=== PATIENT | female | born 2000 | race Caucasian/White ===

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

== ENCOUNTER → 2019-02-09 10:15 | Outpatient (CLI) | payer OTHER, SELFPAY ==
[2016-04-25 18:06] VITALS: BMI 19.9
[2019-02-09 11:13] LABS: AST(SGOT) 18 U/L (15-37); Alanine Aminotransfer ALT/SGPT 17 U/L (13-56); Albumin, Serum 3.8 g/dL (3.2-5.0); Alkaline Phosphatase 40 U/L (45-117); Bilirubin, Direct 0.17 mg/dL (0.00-0.30); Protein, Total 6.8 g/dL (6.4-8.2)
== END ==
PROVIDERS: Family Provider Family Medicine; PCP Family Medicine; Referring Provider Internal Medicine Nephrology; Visit Provider Internal Medicine Nephrology
DX: Q61.2 Polycystic kidney, adult type (principal)
CPT/HCPCS: 36415; 80076

== ENCOUNTER → 2019-09-30 15:30 | Outpatient (CLI) | payer OTHER, SELFPAY ==
[2016-04-25 18:06] VITALS: BMI 19.9
[2019-09-30 18:29] LABS: AST(SGOT) 20 U/L (15-37); Alanine Aminotransfer ALT/SGPT 19 U/L (13-56); Albumin, Serum 4.2 g/dL (3.2-5.0); Alkaline Phosphatase 44 U/L (45-117); Bilirubin, Direct 0.19 mg/dL (0.00-0.30); Globulin 3.1 g/dL (2.2-4.2); Protein, Total 7.3 g/dL (6.4-8.2)
== END ==
PROVIDERS: PCP Family Medicine; Referring Provider Internal Medicine Nephrology; Visit Provider Internal Medicine Nephrology
DX: Q61.2 Polycystic kidney, adult type (principal)
CPT/HCPCS: 36415; 80076

== ENCOUNTER 2019-11-07 16:43 | Outpatient (RCR) | payer OTHER, SELFPAY ==
[2016-04-25 18:06] VITALS: BMI 19.9
[2019-11-07 17:31] LABS: AST(SGOT) 23 U/L (15-37); Alanine Aminotransfer ALT/SGPT 17 U/L (13-56); Albumin, Serum 4.1 g/dL (3.2-5.0); Alkaline Phosphatase 40 U/L (45-117); Bilirubin, Direct 0.21 mg/dL (0.00-0.30); Globulin 3.1 g/dL (2.2-4.2); Protein, Total 7.2 g/dL (6.4-8.2)
== END 2019-11-07 18:00 | disposition home or self-care (01) ==
LOC: LAB 16:43
PROVIDERS: PCP Family Medicine; Visit Provider Internal Medicine Nephrology
DX: Q61.2 Polycystic kidney, adult type (principal)
CPT/HCPCS: 36415; 80076

== ENCOUNTER 2019-12-05 16:46 | Outpatient (RCR) | payer OTHER, SELFPAY ==
[2016-04-25 18:06] VITALS: BMI 19.9
[2019-12-05 18:39] LABS: AST(SGOT) 19 U/L (15-37); Alanine Aminotransfer ALT/SGPT 21 U/L (13-56); Albumin, Serum 3.9 g/dL (3.2-5.0); Alkaline Phosphatase 41 U/L (45-117); Bilirubin, Direct 0.17 mg/dL (0.00-0.30); Protein, Total 6.9 g/dL (6.4-8.2)
== END 2019-12-05 18:00 | disposition home or self-care (01) ==
LOC: LAB 16:46
PROVIDERS: PCP Family Medicine; Visit Provider Internal Medicine Nephrology
DX: Q61.2 Polycystic kidney, adult type (principal)
CPT/HCPCS: 36415; 80076

== ENCOUNTER 2020-01-08 16:51 | Outpatient (RCR) | payer OTHER, SELFPAY ==
[2016-04-25 18:06] VITALS: BMI 19.9
[2020-01-08 17:55] LABS: AST(SGOT) 19 U/L (15-37); Alanine Aminotransfer ALT/SGPT 17 U/L (13-56); Albumin, Serum 4.1 g/dL (3.2-5.0); Alkaline Phosphatase 38 U/L (45-117); Bilirubin, Direct 0.16 mg/dL (0.00-0.30); Protein, Total 7.1 g/dL (6.4-8.2)
== END 2020-01-08 18:00 | disposition home or self-care (01) ==
LOC: LAB 16:51
PROVIDERS: PCP Family Medicine; Referring Provider Internal Medicine Nephrology; Visit Provider Internal Medicine Nephrology
DX: Q61.2 Polycystic kidney, adult type (principal)
CPT/HCPCS: 36415; 80076

== ENCOUNTER 2020-03-07 11:39 | Outpatient (RCR) | payer OTHER, SELFPAY ==
[2016-04-25 18:06] VITALS: BMI 19.9
[2020-03-07 12:15] LABS: AST(SGOT) 15 U/L (15-37); Alanine Aminotransfer ALT/SGPT 17 U/L (13-56); Albumin, Serum 3.8 g/dL (3.2-5.0); Alkaline Phosphatase 44 U/L (45-117); Bilirubin, Direct 0.24 mg/dL (0.00-0.30); Globulin 3.2 g/dL (2.2-4.2)
== END 2020-03-07 18:00 | disposition home or self-care (01) ==
LOC: LAB 11:39
PROVIDERS: PCP Family Medicine; Referring Provider Internal Medicine Nephrology; Visit Provider Internal Medicine Nephrology
DX: Q61.2 Polycystic kidney, adult type (principal)
CPT/HCPCS: 36415; 80076

== ENCOUNTER 2020-06-08 13:27 | Outpatient (RCR) | payer OTHER, SELFPAY ==
[2016-04-25 18:06] VITALS: BMI 19.9
[2020-05-19 17:23] LABS: AST(SGOT) 19 U/L (15-37); Alanine Aminotransfer ALT/SGPT 18 U/L (13-56); Albumin, Serum 4.2 g/dL (3.2-5.0); Alkaline Phosphatase 46 U/L (45-117); Bilirubin, Direct 0.24 mg/dL (0.00-0.30); Protein, Total 7.2 g/dL (6.4-8.2)
[2020-06-08 14:23] LABS: AST(SGOT) 19 U/L (15-37); Alanine Aminotransfer ALT/SGPT 24 U/L (13-56); Albumin, Serum 3.9 g/dL (3.2-5.0); Alkaline Phosphatase 42 U/L (45-117); Bilirubin, Direct 0.19 mg/dL (0.00-0.30); Globulin 3.2 g/dL (2.2-4.2); Protein, Total 7.1 g/dL (6.4-8.2)
== END 2020-06-08 18:00 | disposition home or self-care (01) ==
LOC: LAB 13:27
PROVIDERS: PCP Family Medicine; Referring Provider Internal Medicine Nephrology; Visit Provider Internal Medicine Nephrology
DX: Q61.2 Polycystic kidney, adult type (principal)
CPT/HCPCS: 36415; 80076

== ENCOUNTER 2020-06-28 21:23 | Emergency (ER) | payer OTHER, SELFPAY ==
[2020-06-28 21:24] VITALS: BP 115/78; PULSE 86; RESP 16; TEMP 37.3; O2SAT 98; BMI 20.2
--- NOTE | 2020-06-28 21:50 | ED.VISSUMM ---
- ER Visit Summary Date of Service: 06/28/20 Chief Complaint: Palpitations History of Present Illness: The patient is a 19 F with no primary care physician. She only has a medical history of polycystic kidney disease. She reports at 9:00 this evening while driving she had the abrupt onset of palpitations. States it felt as though her heart was racing. She became very lightheaded, short of breath, and sweaty. It lasted approximately 10 minutes and is now resolved. She denies any chest pain during this. She states that both hands began to tingle. All of her symptoms have resolved. Patient reports that she just feels tired. She has never had anything like this before. She denies caffeine or decongestant intake. She denies any drug use. She does not smoke. States that nothing was different than usual tonight. No new medications. Physical Examination: Vitals: Stable. Afebrile. General: Well-nourished and well-developed. Head: Normocephalic atraumatic. Neck: Supple, no lymphadenopathy. No JVD. Nontender. Cardiovascular: Regular rate and rhythm. No murmurs. Respiratory: No respiratory distress. Clear to auscultation bilaterally. Abdominal: Soft, nontender, nondistended, normal bowel sounds. No guarding, rebound, or peritoneal signs. Back: Nontender. Extremities: Nontender, no edema. Skin: Normal color, no rash. Neurologic: Alert and oriented ?3. Cranial nerves II through XII are intact. Normal strength and sensation. Psych: Normal affect. Test Results: EKG shows sinus arrhythmia at a rate of 80. There are normal intervals. No evidence of Brugada syndrome. Emergency Department Course and Treatment: Had a prolonged discussion the patient that I suspect that she had an episode of SVT. However, this resolved prior to arrival and we were unable to capture it. She does not want blood work obtained. I feel that is a reasonable course of action. Treatment Plan: Patient will be discharged instructions follow-up Dr. Rowdy Iqbal in 1 to 2 weeks for another exam. I did discuss with her that if she has another episode she should try to return the emerge department so that we can capture this. If she is having any other problems she should return the emergency department as well. Disposition: To home in improved and stable condition. Impression: 1. Palpitations. This note was generated with Dragon dictation software. It may contain incorrect words, spelling, and punctuation that were not noted in review of the chart prior to signing ED Disposition - Plan for ED Patient: Instructions: ED Palpitations Referrals: Rowdy Iqbal MD [STAFF PHYSICIAN] - 1-2 Weeks
--- NOTE | 2020-06-28 21:53 | EKG12_ITS ---
Test Reason : PALPS Blood Pressure : / mmHG Vent. Rate : 080 BPM Atrial Rate : 080 BPM P-R Int : 128 ms QRS Dur : 088 ms QT Int : 390 ms P-R-T Axes : 063 080 056 degrees QTc Int : 449 ms Normal sinus rhythm with sinus arrhythmia Normal ECG Confirmed by WILD DIETRICH, RIO ([id number]), newspaper copy editor TONIE HARMON ([id number]) on 06/29/2020 10:36:03 AM Referred By: SUKI Confirmed By:RIO ROME MD
== END 2020-06-28 22:03 | disposition home or self-care (01) ==
LOC: ED 21:59
PROVIDERS: Emergency Provider Emergency Medicine
DX: R00.2 Palpitations (principal); Q61.3 Polycystic kidney, unspecified; Z79.899 Other long term (current) drug therapy
CPT/HCPCS: 93005; 99282

== ENCOUNTER 2020-09-21 15:30 | Outpatient (RCR) | payer OTHER, SELFPAY ==
[2016-04-25 18:06] VITALS: BMI 19.9
[2020-09-21 17:45] LABS: AST(SGOT) 16 U/L (15-37); Alanine Aminotransfer ALT/SGPT 17 U/L (13-56); Alkaline Phosphatase 45 U/L (45-117); Bilirubin, Direct 0.16 mg/dL (0.00-0.30); Globulin 3.1 g/dL (2.2-4.2); Protein, Total 7.1 g/dL (6.4-8.2)
== END 2020-09-21 18:00 | disposition home or self-care (01) ==
LOC: LAB 15:30
PROVIDERS: Referring Provider Internal Medicine Nephrology; Visit Provider Internal Medicine Nephrology
DX: Q61.2 Polycystic kidney, adult type (principal)
CPT/HCPCS: 36415; 80076

== ENCOUNTER 2020-10-19 16:55 | Outpatient (RCR) | payer OTHER, SELFPAY ==
[2020-10-19 18:15] LABS: AST(SGOT) 15 U/L (15-37); Alanine Aminotransfer ALT/SGPT 15 U/L (13-56); Alkaline Phosphatase 41 U/L (45-117); Bilirubin, Direct 0.21 mg/dL (0.00-0.30); Globulin 3.1 g/dL (2.2-4.2); Protein, Total 7.1 g/dL (6.4-8.2)
== END 2020-10-19 18:00 | disposition home or self-care (01) ==
LOC: LAB 16:55
PROVIDERS: Referring Provider Internal Medicine Nephrology; Visit Provider Internal Medicine Nephrology
DX: Q61.2 Polycystic kidney, adult type (principal)
CPT/HCPCS: 36415; 80076

== ENCOUNTER 2020-12-18 16:24 | Outpatient (RCR) | payer OTHER, SELFPAY ==
[2020-12-18 17:57] LABS: AST(SGOT) 17 U/L (15-37); Alanine Aminotransfer ALT/SGPT 16 U/L (13-56); Alkaline Phosphatase 43 U/L (45-117); Bilirubin, Direct 0.23 mg/dL (0.00-0.30)
== END 2020-12-18 18:00 | disposition home or self-care (01) ==
LOC: LAB 16:24
PROVIDERS: Referring Provider Internal Medicine Nephrology; Visit Provider Internal Medicine Nephrology
DX: Q61.2 Polycystic kidney, adult type (principal)
CPT/HCPCS: 36415; 80076

== ENCOUNTER → 2021-05-01 09:04 | Outpatient (CLI) | payer OTHER, SELFPAY ==
--- NOTE | 2021-05-01 09:07 | US_ITS ---
STUDY: RENAL ULTRASOUND - COMPLETE REASON FOR EXAM: Female, 20 years old. POLYCYSTIC KIDNEY TECHNIQUE: Ultrasound evaluation of the kidneys was performed with real-time and static payne-scale imaging. COMPARISON: None. FINDINGS: Aorta: Visualized portions of abdominal aorta are normal in diameter. IVC: Visualized portions appear patent. Right kidney: Measures 16.6 cm. Irregular contour, enlarged and predominantly replaced by cysts. Left kidney: Measures 14.3 cm. Irregular contour, enlarged and predominantly replaced by cysts however cystic replacement is slightly lesser than in the right kidney. Bladder: No intrinsic masses, stones, or abnormal dilatation noted. Incidental note is made of an intrauterine and a 2.8 cm right ovarian cyst. US/Kidney and Bladder IMPRESSION: Bilateral polycystic kidney disease as above. Electronically Signed: Joel Lima MD at 13:39 EST Tel , Service support ,
== END ==
DX: Q61.2 Polycystic kidney, adult type (principal)
CPT/HCPCS: 76770

== ENCOUNTER → 2021-05-10 10:07 | Outpatient (CLI) | payer OTHER, SELFPAY ==
[2021-05-10 12:07] LABS: Absolute Lymphocyte Count 1.09 X10^3/uL (0.83-4.51); Absolute Neutrophil Count 4.6 X10^3/uL (2.0-7.7); Basophil# 0.03 X10^3/uL; Basophil% 0.5 % (0-1); Eosinophil# 0.03 X10^3/uL; Eosinophils% 0.5 % (0-5); Hematocrit 37.6 % (37-47); Lymphocyte # 1.09 X10^3/ul (0.83-4.51); Lymphocyte % 17.6 % (19-41); Mean Corp Hgb Conc 34.6 g/dL (32-36); Mean Corpuscular Hgb 31.9 pg (27.0-32.0); Mean Corpuscular Volume 92.4 fL (81-99); Mean Platelet Vol. 10.3 fl (6.2-12.0); Monocyte# 0.44 X10^3/uL; Monocyte% 7.1 % (0-10); NRBC Flagged by Analyzer 0 % (0-5); Neutrophil # 4.58 X10^3/uL (2.7-7.7); Neutrophil % 74.1 % (47-70); Platelet Count 180 K/mm3 (150-450); RBC Distribution Width CV 11.6 % (11.6-14.6); RBC Distribution Width SD 39.4 fl (35.1-43.9); Red Blood Count 4.07 M/mm3 (4.2-5.4); White Blood Count 6.2 K/mm3 (4.4-11.0)
[2021-05-10 12:32] LABS: AST(SGOT) 16 U/L (15-37); Alanine Aminotransfer ALT/SGPT 20 U/L (13-56); Albumin, Serum 3.5 g/dL (3.2-5.0); Alkaline Phosphatase 31 U/L (45-117); Anion Gap 5 (5-15); BUN 8 mg/dL (7-18); BUN/Creat Ratio 16.9 RATIO (10-20); Calcium,Total 8.8 mg/dL (8.5-10.1); Chloride 106 mmol/L (98-107); Creatinine, Serum 0.47 mg/dL (0.55-1.02); EST Glomerular Filtration Rate 175 mL/min (>60); Est Glom Filt Rate - Afr Amer 212 mL/min (>60); Globulin 3.6 g/dL (2.2-4.2); Glucose 76 mg/dL (74-106); Potassium 3.4 mmol/L (3.5-5.1); Protein, Total 7.1 g/dL (6.4-8.2); Sodium Level 136 mmol/L (136-145)
[2021-05-10 13:12] LABS: HIV - WCH Non-Reactive (Nonreactive); Hepatitis B Surface Antigen Non-Reactive (Nonreactive); Hepatitis C Antibody Non-Reactive (Nonreactive); Syphilis Antibodies Non-reactive
[2021-05-10 13:55] LABS: Protein, Urine (Random) 6.6 mg/dL (<11.9); Protein:Creat Ratio 142 mg/g CRE (0-200)
[2021-05-10 14:01] LABS: Amphetamine Urine VISTA NEGATIVE (<1000 ng/mL); Barbiturate Urine VISTA NEGATIVE (< 200 ng/mL); Benzodiazepine Urine VISTA NEGATIVE (< 200 ng/mL); Cocaine Urine VISTA NEGATIVE (< 300 ng/mL); Ecstacy Urine VISTA NEGATIVE (< 500 ng/mL); Methadone Urine VISTA NEGATIVE (< 300 ng/mL); PCP Urine VISTA NEGATIVE (< 25 ng/mL); THC Urine VISTA NEGATIVE (< 50 ng/mL); Vista UDS pH Range 6
[2021-05-12 22:06] LABS: Chlamydia By Nucleic Acid AMP Negative (Negative)
[2021-05-12 22:49] LABS: Gonococcus By Nucleic Acid AMP Negative (Negative)
[2021-05-17 14:20] LABS: HPV Reflexed? NOT INDICATED
== END ==
PROVIDERS: Referring Provider Obstetrics & Gynecology; Visit Provider Obstetrics & Gynecology
DX: Z34.90 Encounter for supervision of normal pregnancy, unspecified, unspecified trimester (principal)
CPT/HCPCS: 36415; 80053; 80307; 82570; 84156; 85025; 86703; 86762; 86780; 86803; 86850; 86900; 86901; 87086; 87088; 87340; 87491; 87591; 88175; G0145

== ENCOUNTER 2021-09-01 09:42 | Outpatient (CLI) | payer OTHER, SELFPAY ==
[2021-09-01 10:21] LABS: Absolute Lymphocyte Count 1.18 X10^3/uL (0.83-4.51); Basophil# 0.01 X10^3/uL; Basophil% 0.1 % (0-1); Eosinophil# 0.07 X10^3/uL; Eosinophils% 0.9 % (0-5); Hematocrit 36.8 % (37-47); Hemoglobin 12.8 g/dL (12.0-15.0); Lymphocyte # 1.18 X10^3/ul (0.83-4.51); Lymphocyte % 14.9 % (19-41); Mean Corp Hgb Conc 34.8 g/dL (32-36); Mean Corpuscular Hgb 32.7 pg (27.0-32.0); Mean Corpuscular Volume 94.1 fL (81-99); Mean Platelet Vol. 10.2 fl (6.2-12.0); Monocyte# 0.61 X10^3/uL; Monocyte% 7.7 % (0-10); NRBC Flagged by Analyzer 0 % (0-5); Neutrophil # 6.04 X10^3/uL (2.7-7.7); Platelet Count 165 K/mm3 (150-450); RBC Distribution Width CV 12.2 % (11.6-14.6); RBC Distribution Width SD 41.9 fl (35.1-43.9); Red Blood Count 3.91 M/mm3 (4.2-5.4); White Blood Count 7.9 K/mm3 (4.4-11.0)
[2021-09-01 10:45] LABS: Albumin, Serum 2.9 g/dL (3.2-5.0); BUN 8 mg/dL (7-18); BUN/Creat Ratio 13.7 RATIO (10-20); Calcium,Total 8.3 mg/dL (8.5-10.1); Chloride 107 mmol/L (98-107); Creatinine, Serum 0.58 mg/dL (0.55-1.02); EST Glomerular Filtration Rate 137 mL/min (>60); Est Glom Filt Rate - Afr Amer 166 mL/min (>60); Glucose 100 mg/dL (74-106); Glucose Challenge Gest 1H 50g 100 mg/dL (70-140); Phosphorus 3.2 mg/dL (2.5-4.9); Potassium 3.5 mmol/L (3.5-5.1); Sodium Level 138 mmol/L (136-145)
[2021-09-01 10:54] LABS: Protein, Urine (Random) 10.4 mg/dL (<11.9); Protein:Creat Ratio 177 mg/g CRE (0-200)
== END 2021-09-01 23:59 | disposition home or self-care (01) ==
LOC: LAB 09:45
PROVIDERS: Obstetrics & Gynecology; Visit Provider Internal Medicine Nephrology
DX: Q61.2 Polycystic kidney, adult type (principal)
CPT/HCPCS: 36415; 80069; 82570; 82950; 84156; 85025

== ENCOUNTER 2021-10-01 14:33 | Outpatient (CLI) | payer OTHER, SELFPAY ==
--- NOTE | 2021-10-01 14:35 | US_ITS ---
STUDY: RENAL ULTRASOUND - COMPLETE REASON FOR EXAM: Female, 21 years old. polycystic kidney disease with TECHNIQUE: Ultrasound evaluation of the kidneys was performed with real-time and static payne-scale imaging. COMPARISON: None. FINDINGS: RIGHT KIDNEY: with moderate renal hypertrophy. The right kidney measures 15.5 cm. The renal cortex measures in cm: 2.6. There is a normal cortex of the right kidney. There is multiple right renal cyst. Largest measures 47 x 42 mm. There are no right renal calculi. There is no right hydronephrosis. DISTAL RIGHT URETER: There is non-visualization of the distal right ureter. There is no demonstrated right ureterovesical junction calculus. There is no demonstrated right ureteral jet. LEFT KIDNEY: with moderate renal hypertrophy. The left kidney measures 15.4 cm. . There is a normal cortex of the left kidney. Multiple left renal cysts with the largest measures 26 x 26 mm. There are no left renal calculi. There is no left hydronephrosis. DISTAL LEFT URETER: There is non-visualization of the distal left ureter. There is no demonstrated left ureterovesical junction calculus. There is no demonstrated left ureteral jet. AORTA: There is obscuration of the abdominal aorta by overlying bowel gas I.V.C.: It is not visualized. There is too much overlying bowel gas. BLADDER: There is no demonstrated mass within the urinary bladder. There are no demonstrated bladder calculi. US/Kidney and Bladder IMPRESSION: Polycystic kidneys. Note: Renal size measurements and size measurements of other organs etc may vary depending on modality and beck operator dependent variations in measurements. (i.e. Measuring a kidney on an US does not correlate with an exact same measurement on a CT.) Electronically Signed: Aaron Dudley MD at 19:06 EDT ,
== END 2021-10-01 23:59 | disposition home or self-care (01) ==
LOC: US 14:34
PROVIDERS: Visit Provider Nurse Practitioner Women's Health
DX: O99.891 Other specified diseases and conditions complicating pregnancy (principal); Q61.3 Polycystic kidney, unspecified
CPT/HCPCS: 76770

== ENCOUNTER → 2021-10-28 | Outpatient (CLI) | payer OTHER, SELFPAY ==
--- NOTE | 2021-10-28 16:44 | US_ITS ---
STUDY: SECOND AND THIRD TRIMESTER OBSTETRICAL ULTRASOUND - LIMITED REASON FOR EXAM: Female, 21 years old. growth PRIOR ULTRASOUND: None. TECHNIQUE: Transabdominal TECHNICAL QUALITY: Adequate. FINDINGS: There is a single intrauterine fetus. The fetus is in a cephalic presentation. There is demonstrated cardiac activity with a heart rate of 171 bpm. There is a normal amniotic fluid volume. The largest amniotic fluid pocket measures 6.2 cm. The amniotic fluid index (KINDRA) is 21.19 cm. The placenta is posterior in location and is not low lying. There are Grade 2 placental changes. The cervix measures cm in length: 3.5. BIOMETRY: BPD: 85 mm: 34 weeks, 1 days HC: 327 mm: 37 weeks, 0 days AC: 332 mm: 37 weeks, 0 days FL: 66 mm: 33 weeks, 5 days CI: 76 FL/AC: 19 FL/BPD: 77 HC/AC: .98 age by current US: 35 weeks, 4 days. DORIS by current US: 6.12.22. Estimated weight: 2784 grams, +/- 418 grams, 57 %. Age by LMP: 35 weeks, 4 days. DORIS by LMP: 6.12.22. US/OB Limited With Biometrics IMPRESSION: There is a single live intrauterine with a heart rate of 171 bpm. age by current US: 35 weeks, 4 days. DORIS by current US: 6.12.22. Estimated weight: 2784 grams, +/- 418 grams, 57 %. Electronically Signed: Aaron Dudley MD at 18:11 EDT ,
[2021-10-28 17:00] LABS: Absolute Lymphocyte Count 1.39 X10^3/uL (0.83-4.51); Absolute Neutrophil Count 5.5 X10^3/uL (2.0-7.7); Basophil# 0.02 X10^3/uL; Basophil% 0.3 % (0-1); Eosinophil# 0.05 X10^3/uL; Eosinophils% 0.6 % (0-5); Hematocrit 38.7 % (37-47); Hemoglobin 13.2 g/dL (12.0-15.0); Lymphocyte # 1.39 X10^3/ul (0.83-4.51); Lymphocyte % 17.8 % (19-41); Mean Corp Hgb Conc 34.1 g/dL (32-36); Mean Corpuscular Hgb 32.5 pg (27.0-32.0); Mean Corpuscular Volume 95.3 fL (81-99); Mean Platelet Vol. 11.4 fl (6.2-12.0); Monocyte# 0.83 X10^3/uL; Monocyte% 10.6 % (0-10); NRBC Flagged by Analyzer 0 % (0-5); Neutrophil # 5.51 X10^3/uL (2.7-7.7); Neutrophil % 70.3 % (47-70); Platelet Count 149 K/mm3 (150-450); RBC Distribution Width SD 41.8 fl (35.1-43.9); Red Blood Count 4.06 M/mm3 (4.2-5.4); White Blood Count 7.8 K/mm3 (4.4-11.0)
[2021-10-28 17:10] LABS: Creatinine, Urine (random) < 13.00 mg/dL (NO RANGE EST.); Protein, Urine (Random) < 6.0 mg/dL (<11.9)
[2021-10-28 18:00] LABS: ALB/GLOB Ratio 0.8 RATIO (0.9-2.4); AST(SGOT) 42 U/L (15-37); Alanine Aminotransfer ALT/SGPT 60 U/L (13-56); Albumin, Serum 2.8 g/dL (3.2-5.0); Alkaline Phosphatase 117 U/L (45-117); Anion Gap 6 (5-15); BUN 9 mg/dL (7-18); BUN/Creat Ratio 14.4 RATIO (10-20); Calcium,Total 9.1 mg/dL (8.5-10.1); Chloride 107 mmol/L (98-107); Creatinine, Serum 0.63 mg/dL (0.55-1.02); EST Glomerular Filtration Rate 126 mL/min (>60); Est Glom Filt Rate - Afr Amer 153 mL/min (>60); Globulin 3.7 g/dL (2.2-4.2); Glucose 93 mg/dL (74-106); Potassium 3.6 mmol/L (3.5-5.1); Protein, Total 6.5 g/dL (6.4-8.2); Sodium Level 139 mmol/L (136-145)
== END | disposition home or self-care (01) ==
PROVIDERS: Visit Provider Obstetrics & Gynecology
DX: O16.3 Unspecified maternal hypertension, third trimester (principal); O99.891 Other specified diseases and conditions complicating pregnancy; Q61.3 Polycystic kidney, unspecified
CPT/HCPCS: 36415; 76816; 80053; 82570; 84156; 85025

== ENCOUNTER 2021-10-29 09:50 | Outpatient (CLI) | payer OTHER, SELFPAY ==
[2021-10-29] VITALS (12 sets, daily range): BP systolic 128–148; BP diastolic 75–92; PULSE 60–86; TEMP 36.7; BMI 24.2
[2021-10-29 11:10] LABS: Protein, Urine (Random) < 6.0 mg/dL (<11.9); Protein:Creat Ratio 199 mg/g CRE (0-200)
[2021-10-29] MEDS: Betamethasone/Betamethasone 30 MG/5 ML Vial 12 MG IM (11:17)
[2021-10-29 11:19] LABS: Hematocrit 37.5 % (37-47); Hemoglobin 12.9 g/dL (12.0-15.0); Mean Corp Hgb Conc 34.4 g/dL (32-36); Mean Corpuscular Hgb 32.7 pg (27.0-32.0); Mean Corpuscular Volume 95.2 fL (81-99); Mean Platelet Vol. 11.2 fl (6.2-12.0); Platelet Count 151 K/mm3 (150-450); RBC Distribution Width CV 11.9 % (11.6-14.6); RBC Distribution Width SD 41.2 fl (35.1-43.9); Red Blood Count 3.94 M/mm3 (4.2-5.4); White Blood Count 8.9 K/mm3 (4.4-11.0)
[2021-10-29] MEDS: 0.9% Saline Lock 10 ML Syringe IV (11:21)
[2021-10-29 11:29] LABS: Creatinine, Serum 0.58 mg/dL (0.55-1.02); EST Glomerular Filtration Rate 139 mL/min (>60); Estimated Creatinine Clearance 170.05 ml/min
[2021-10-29 11:30] LABS: AST(SGOT) 43 U/L (15-37); Alanine Aminotransfer ALT/SGPT 63 U/L (13-56); Est Glom Filt Rate - Afr Amer 168 mL/min (>60); Uric Acid 3.6 mg/dL (2.6-6.0)
--- NOTE | 2021-10-29 13:36 | OB.TRI.HP_ITS ---
HPI - General HPI Narrative RUTH HENNESSY, is a 21 y/o @35w5 days who presents to L&D for monitoring after PIH labs from late last night showed elevated LFT's, slightly low platelets (149), and absence of proteinuria. Yesterday in the office her blood pressures were 130's-140's/80's and she stated that she was not feeling well. She denied, and continues to deny RUQ pain, headache, visual changes, chest pain, nausea, or vomiting. She states that the baby is moving well and she denies decreased movement, contraction pain, vaginal bleeding, or loss of fluid. Maternal Data Information DORIS Calculator Estimated Delivery Date Method Current WG Current Estimate 11/28/21 LMP (Certain) 35w 5d PFSH PFSH Medical History Polycystic kidney disease Home Medications multivitamin no.47-iron fum 27 mg-folate no.1 1 mg-dha 300 mg capsule 1 cap PO 04/29/21 [History Last Taken 10/27/21 21:00] Allergy/AdvReac Type Severity Reaction Status Date / Time No Known Allergies Allergy Verified 10/29/21 10:12 Family History Other Heart disease Hypertension Polycystic kidney disease Surgical History H/O left wrist surgery Social History adopted: No household members: spouse 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 pets and animals: Yes Smoking Status: Never smoker second hand exposure: No alcohol intake: never substance use type: does not use seatbelt use: always do you feel safe at home: Yes additional social history: - Prem History 1 Elective abortions Hx Para Spontaneous abortions Hx # Term Pregnancies Ectopic pregnancies Hx # Pregnancies Multiple births # of living children Visit Details Expected Delivery Route/Plan Labor Preferences- CB/BF classes: encouraged labor support person: Prem labor intervention preferences: [] pain management options preferred: limited intervention cut cord/dad catch: maybe : yes PP control planned: discussed discussed possible routes of delivery and associated risks: [] special requests: [] Plans Covid status: pos in past counseled regarding risk of covid in vs vaccination and declined vaccination Flu vaccine: declined Tdap vaccine: [] Rhogam: NA LARC form signed: yes Problem list reviewed and updated with the most current plan of care details and appropriate orders placed. Relevant counseling for the gestational age provided. Continue routine care and follow up unless otherwise noted in visit notes/problem list details OB Flowsheet Initial Weight: 144 lb Date -?-?-?-?-?-?-?-?--?-?-?-?- EGA Weight BP Urine Prot -?-?-?-?-?-?-?-?-?-?-?-?- Glucose FHR FuHt Pres Dilation -?-?-?-?-?-?-?-?-?-?-?-?- Effaced St Visit Note 05/10/21 -?-?-?-?-?-?-?-?-?-?-?-?- 11w 1d 144 lb (+0 oz) 120/72 -?-?-?-?-?-?-?-?-?-?-?-?- 160 -?-?-?-?-?-?-?-?-?-?-?-?- SM- CRL cons wit h LMP SM- CRL 4cm cons with LMP 06/08/21 -?-?-?-?-?-?-?-?-?-?-?-?- 15w 2d 146 lb 8 oz (+2 lb 8 oz) 110/82 Negative -?-?-?-?-?-?-?-?-?-?-?-?- Negative 147 -?-?-?-?-?-?-?-?-?-?-?-?- JV- no lof, vagi nal bleeding, + fm (fluttering) 07/09/21 -?-?-?-?-?-?-?-?-?-?-?-?- 19w 5d 153 lb (+9 lb) 130/86 Negative -?-?-?-?-?-?-?-?-?-?-?-?- Negative 155 -?-?-?-?-?-?-?-?-?-?-?-?- JV- no lof, v ag inal bleeding or cramping. anatomy scan was incomplete and showed a marginal previa. will have rpt scn in 2 weeks and at 28 weeks 08/06/21 -?-?-?-?-?-?-?-?-?-?-?-?- 23w 5d 159 lb 6 oz (+15 lb 6 oz) 120/88 Negative -?-?-?-?-?-?-?-?-?-?-?-?- Negative 140 -?-?-?-?-?-?-?-?-?-?-?-?- SM- no vb crampi ng 09/01/21 -?-?-?-?-?-?-?-?-?-?-?-?- 27w 3d 163 lb 8 oz (+19 lb 8 oz) 118/70 Negative -?-?-?-?-?-?-?-?-?-?-?-?- Negative 151 27 -?-?-?-?-?-?-?-?-?-?-?-?- MH-NO VB, LOF. G ood FM. Renal US for pt ordered at 32 wk. 28 w labs with urine PC ratio today. Larc. Will do tdap next visit. 09/15/21 -?-?-?-?-?-?-?-?-?-?-?-?- 29w 3d 165 lb 4 oz (+21 lb 4 oz) 129/81 Negative -?-?-?-?-?-?-?-?-?-?-?-?- Negative 133 29 -?-?-?-?-?-?-?-?-?-?-?-?- JV_ nml GCT, nee ds 32 week scan pt states it is scheduled. 09/24/21 -?-?-?-?-?-?-?-?-?-?-?-?- 30w 5d 168 lb (+24 lb) 124/80 -?-?-?-?-?-?-?-?-?-?-?-?- 135 30 -?-?-?-?-?-?-?-?-?-?-?-?- SM- no vb lof go od fm no regular ctx 10/08/21 -?-?-?-?-?-?-?-?-?-?-?-?- 32w 5d 170 lb 4 oz (+26 lb 4 oz) 100/70 Negative -?-?-?--?-?-?-?-?-?-?-?-?- Negative 140 33 -?-?-?-?-?-?-?-?-?-?-?-?- JV- no lof, vagi nal bleeding, or dec fm. urology referral needed 10/22/21 -?-?-?-?-?-?-?-?--?-?-?-?- 34w 5d 174 lb (+30 lb) 120/82 Negative -?-?-?-?-?-?-?-?-?-?-?-?- Negative 145 34 -?-?-?-?-?-?-?-?-?-?-?-?- JV- no lof, vagi nal bleeding, or dec fm. pt c/o a flap of tissue in the vagina this was examined and noted to be a hymen remnant that was swollen, 10/28/21 -?-?-?-?-?-?-?-?-?-?-?-?- 35w 4d 176 lb 8 oz (+32 lb 8 oz) 138/84 Negative -?-?-?-?-?-?-?-?-?-?-?-?- Negative 134 35 -?-?-?-?-?-?-?-?-?-?-?-?- JV- no lof, vagi nal bleeding, or dec fm. pt states that she just does not feel good. She has some nausea but no headaches or visual changes. JV- no lof, vaginal bleeding , or dec fm. pt states that she just does not feel good. She has some nausea but no headaches or visual changes.. ordering outpatient H labs now. will call with results. 10/29/21 -?-?-?-?-?-?-?-?-?-?-?-?- 35w 5d 173 lb 8.061 oz (+29 lb 8.061 oz) 144/91 140/90 148/92 129/80 130/83 133/84 134/81 134/80 128/77 130/75 128/75 -?-?-?-?-?-?-?-?-?-?-?-?- -?-?-?-?-?-?-?-?-?-?-?-?- ROS Constitutional Constitutional: Reports systems reviewed and no addt'l complaints, except as documented Gastrointestinal Gastrointestinal: Denies bloating, constipation, cramping, diarrhea, nausea or vomiting Genitourinary Genitourinary: Reports other Details: Denies vaginal odor, vaginal bleeding, or vaginal discharge ; Denies difficulty urinating or flank pain Physical Exam HEENT normocephalic Resp normal respiratory effort and normal air movement no CVA tenderness Extremity normal to inspection General Extremity: edema bilateral (trace ) NST FHR Rate Baby A Baseline: 140 Variability:: Moderate Accelerations:: 15 x 15 Decelerations:: None NST Reactive:: Yes FHR Category:: Category I Assessment & Plan (1) Hemolysis, elevated liver enzymes, and low platelet (HELLP) syndrome during : COMMENT: hellp suspected but not confirmed. pt given steroids on 10/29/21. Platelets in normal range with repeat blood work and blood pressure normal. pt following up in triage on 10/30 for rpt labs and rpt 2nd dose of celestone. bedrest encouraged as much as possible. precautions discussed PLAN: after patient was given celestone and labs were repeated, the lfts are slightly higher, but the plts are normal. Her blood pressure last check was 128/75. She denies headaches or blurry vision, no ruq pain still and she states that she feels better than yesterday plan for very close follow up. She will return tomorrow at 11 am for rpt steroids and blood work and will return sooner if develops any symptoms. Charges/Coding Multi Select Codes Visit Charges Office Visit/Consults: 52030 OV L3 Est Urinary/Genital Urinary/Genital CPT Codes: 46717-50 non-stress test Interp
== END 2021-10-29 13:45 | disposition home or self-care (01) ==
LOC: WPOUT 10:01 → WP 10:02
PROVIDERS: Visit Provider Obstetrics & Gynecology
DX: O99.891 Other specified diseases and conditions complicating pregnancy (principal); R74.8 Abnormal levels of other serum enzymes; Z23 Encounter for immunization; Z3A.35 35 weeks gestation of pregnancy
CPT/HCPCS: 36415; 59025; 59050; 82565; 82570; 84156; 84450; 84460; 84550; 85027; 96372; 99218; A4216; G0378; J0702

== ENCOUNTER 2021-10-31 07:19 | Inpatient (IN) | payer OTHER, SELFPAY ==
[2021-10-30] VITALS (14 sets, daily range): BP systolic 118–132; BP diastolic 61–83; PULSE 56–83; TEMP 36.7–36.8; O2SAT 96–98; BMI 24.0
[2021-10-30 12:09] LABS: Hematocrit 38.2 % (37-47); Hemoglobin 13.1 g/dL (12.0-15.0); Mean Corp Hgb Conc 34.3 g/dL (32-36); Mean Corpuscular Hgb 32.7 pg (27.0-32.0); Mean Corpuscular Volume 95.3 fL (81-99); Mean Platelet Vol. 11.2 fl (6.2-12.0); Platelet Count 143 K/mm3 (150-450); RBC Distribution Width CV 11.9 % (11.6-14.6); RBC Distribution Width SD 40.7 fl (35.1-43.9); Red Blood Count 4.01 M/mm3 (4.2-5.4); White Blood Count 15.1 K/mm3 (4.4-11.0)
[2021-10-30 12:25] LABS: AST(SGOT) 51 U/L (15-37); Alanine Aminotransfer ALT/SGPT 76 U/L (13-56); EST Glomerular Filtration Rate 112 mL/min (>60); Est Glom Filt Rate - Afr Amer 135 mL/min (>60); Uric Acid 3.7 mg/dL (2.6-6.0)
[2021-10-30 12:27] LABS: Protein, Urine (Random) 58.8 mg/dL (<11.9); Protein:Creat Ratio 209 mg/g CRE (0-200)
[2021-10-30] MEDS: Betamethasone/Betamethasone 30 MG/5 ML Vial 12 MG IM (12:37)
[2021-10-30 13:51] LABS: Bacteria 0 SEEN /hpf (None Seen); Mucous, Urine 0 SEEN /hpf (<or=2+); Red Blood Cells-Urine 0 SEEN /hpf (0-5); Squamous Epithelial Cells - UA 0 SEEN /hpf (5-10); White Blood Cells 0 SEEN /hpf (0-5)
[2021-10-30 13:52] LABS: Color, Urine Yellow (Yellow); Glucose, Dipstick Normal (Normal); Ketone-Dipstick Negative (Negative); Leukocyte Esterase-Dipstick Negative /ul (Negative); Nitrite-Dipstick Negative (Negative); Occult Blood-Urine Negative /ul (Negative); Protein-Dipstick Negative (Negative); Specific Gravity, Urine 1.005 (1.002-1.030); Urine Bilirubin Dipstick Negative (Negative); Urine Clarity Clear (Clear); Urine Urobilinogen Normal (Normal)
[2021-10-30] MEDS: Lactated Ringers 1,000 ML 999 ML IV (14:14)
[2021-10-30 15:01] LABS: Group B Strep DNA By PCR Negative (Negative); Internal Control PASS; Probe Check PASS; Specimen Processing Control PASS
[2021-10-30 19:02] LABS: Hematocrit 37.3 % (37-47); Hemoglobin 12.7 g/dL (12.0-15.0); Mean Corpuscular Hgb 32.6 pg (27.0-32.0); Mean Corpuscular Volume 95.9 fL (81-99); Mean Platelet Vol. 11.6 fl (6.2-12.0); Platelet Count 152 K/mm3 (150-450); RBC Distribution Width SD 41.4 fl (35.1-43.9); Red Blood Count 3.89 M/mm3 (4.2-5.4); White Blood Count 12.5 K/mm3 (4.4-11.0)
--- NOTE | 2021-10-30 19:05 | OB.TRI.HP_ITS ---
HPI - General General Date of Admission: 10/31/21 HPI Narrative RUTH HENNESSY, is a 21 F who presents for follow-up evaluation secondary to generalized malaise edema and borderline blood pressure elevation and elevated liver enzymes and borderline low platelets. Initial blood pressure elevation yesterday upon evaluation resolved and was within normal limits and there was negative urine protein and initial liver enzymes were elevated but not doubled and platelets were low but above 100,000. First dose of Celestone was given yesterday and then repeat labs were done again today. Patient is actually feeling better today with symptoms resolved and denies any headache blurry visio n or epigastric pain. However her liver enzymes have increased and platelets are still mildly abnormal. Blood pressures are within normal limits. Maternal Data Information DORIS Calculator Estimated Delivery Date Method Current WG Current Estimate 11/28/21 LMP (Certain) 36w 0d PFSH [facility] Medical History (Updated 10/31/21 @ 13:[address] 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 pets and animals: Yes Smoking Status: Never smoker second hand exposure: No alcohol intake: never substance use type: does not use seatbelt use: always do you feel safe at home: Yes additional social history: - Prem History 1 Elective abortions Hx Para 0 Spontaneous abortions Hx # Term Pregnancies Ectopic pregnancies Hx # Pregnancies Multiple births # of living children Visit Details Expected Delivery Route/Plan Labor Preferences- CB/BF classes: encouraged labor support person: Prem labor intervention preferences: [] pain management options preferred: limited intervention cut cord/dad catch: maybe : yes PP control planned: discussed discussed possible routes of delivery and associated risks: [] special requests: [] Plans Covid status: pos in past counseled regarding risk of covid in vs vaccination and declined vaccination Flu vaccine: declined Tdap vaccine: [] Rhogam: NA LARC form signed: yes Problem list reviewed and updated with the most current plan of care details and appropriate orders placed. Relevant counseling for the gestational age provided. Continue routine care and follow up unless otherwise noted in visit notes/problem list details OB Flowsheet Initial Weight: 144 lb Date -?-?-?-?-?-?-?-?-?-?-?-?- EGA Weight BP Urine Prot -?-?-?-?-?-?-?-?-?-?-?-?- Glucose FHR FuHt Pres Dilation -?-?-?-?-?-?-?-?-?-?-?-?- Effaced St Visit Note 05/10/21 -?-?-?-?-?-?-?-?-?-?-?-?- 11w 1d 144 lb (+0 oz) 120/72 -?-?-?-?-?-?-?-?-?-?-?-?- 160 -?-?-?-?-?-?-?-?-?-?-?-?- SM- CRL cons wit h LMP SM- CRL 4cm cons with LMP 06/08/21 -?-?-?-?-?-?-?-?-?-?-?-?- 15w 2d 146 lb 8 oz (+2 lb 8 oz) 110/82 Negative -?-?-?-?-?-?-?-?-?-?-?-?- Negative 147 -?-?-?-?-?-?-?-?-?-?-?-?- JV- no lof, vagi nal bleeding, + fm (fluttering) 07/09/21 -?-?-?-?-?-?-?-?-?-?-?-?- 19w 5d 153 lb (+9 lb) 130/86 Negative -?-?-?-?-?-?-?-?-?-?-?-?- Negative 155 -?-?-?-?-?-?-?-?-?-?-?-?- JV- no lof, v ag inal bleeding or cramping. anatomy scan was incomplete and showed a marginal previa. will have rpt scn in 2 weeks and at 28 weeks 08/06/21 -?-?-?-?-?-?-?-?--?-?-?-?- 23w 5d 159 lb 6 oz (+15 lb 6 oz) 120/88 Negative -?-?-?-?-?-?-?-?-?-?-?-?- Negative 140 -?-?-?-?-?-?-?-?-?-?-?-?- SM- no vb crampi ng 09/01/21 -?-?-?-?-?-?-?-?-?-?-?-?- 27w 3d 163 lb 8 oz (+19 lb 8 oz) 118/70 Negative -?-?-?-?-?-?-?-?-?-?-?-?- Negative 151 27 -?-?-?-?-?-?-?-?-?-?-?-?- MH-NO VB, LOF. G ood FM. Renal US for pt ordered at 32 wk. 28 w labs with urine PC ratio today. Larc. Will do tdap next visit. 09/15/21 -?-?-?-?-?-?-?-?-?-?-?-?- 29w 3d 165 lb 4 oz (+21 lb 4 oz) 129/81 Negative -?-?-?-?-?-?-?-?-?-?-?-?- Negative 133 29 -?-?-?-?-?-?-?-?-?-?-?-?- JV_ nml GCT, nee ds 32 week scan pt states it is scheduled. 09/24/21 -?-?-?-?-?-?-?-?-?-?-?-?- 30w 5d 168 lb (+24 lb) 124/80 -?-?-?-?-?-?-?-?-?-?-?-?- 135 30 -?-?-?-?-?-?-?-?-?-?-?-?- SM- no vb lof go od fm no regular ctx 10/08/21 -?-?-?-?-?-?-?-?-?-?-?-?- 32w 5d 170 lb 4 oz (+26 lb 4 oz) 100/70 Negative -?-?-?-?-?-?-?-?-?-?-?-?- Negative 140 33 -?-?-?-?-?-?-?-?-?-?-?-?- JV- no lof, vagi nal bleeding, or dec fm. urology referral needed 10/22/21 -?-?-?-?-?-?-?-?-?-?-?-?- 34w 5d 174 lb (+30 lb) 120/82 Negative -?-?-?-?-?-?-?-?-?-?-?-?- Negative 145 34 -?-?-?-?-?-?-?-?-?-?-?-?- JV- no lof, vagi nal bleeding, or dec fm. pt c/o a flap of tissue in the vagina this was examined and noted to be a hymen remnant that was swollen, 10/28/21 -?-?-?-?-?-?-?-?-?-?-?-?- 35w 4d 176 lb 8 oz (+32 lb 8 oz) 138/84 Negative -?-?-?-?-?-?-?-?-?-?-?-?- Negative 134 35 -?-?-?-?-?-?-?-?-?-?-?-?- JV- no lof, vagi nal bleeding, or dec fm. pt states that she just does not feel good. She has some nausea but no headaches or visual changes. JV- no lof, vaginal bleeding , or dec fm. pt states that she just does not feel good. She has some nausea but no headaches or visual changes.. ordering outpatient PIH labs now. will call with results. 10/29/21 -?-?-?-?-?-?-?-?-?-?-?-?- 35w 5d 173 lb 8.061 oz (+29 lb 8.061 oz) 144/91 140/90 148/92 129/80 130/83 133/84 134/81 134/80 128/77 130/75 128/75 -?-?-?-?-?-?-?-?-?-?-?-?- -?-?-?-?-?-?-?-?-?-?-?-?- 10/31/21 -?-?-?-?-?-?-?-?-?-?-?-?- 36w 0d 126/82 125/67 107/54 140/76 132/80 140/90 -?-?-?-?-?-?-?-?-?-?-?-?- -?-?-?-?-?-?-?-?-?-?-?-?- Physical Exam Const alert, oriented x3 and no apparent distress HEENT Head and Scalp: normocephalic and atraumatic Eyes EOMs intact bilaterally Neck full ROM and no lymphadenopathy Chest inspection of chest normal Resp normal respiratory effort GI GI Narrative: gravid, abdomen nontender, AGA Neuro no focal motor deficits Motor Exam: clonus absent NST FHR Rate Baby A Baseline: 140 Variability:: Moderate Accelerations:: 15 x 15 Decelerations:: None NST Reactive:: Yes FHR Category:: Category I Uterine Activity:: no regular Assessment & Plan (1) Supervision of high risk , antepartum: COMMENT: PRR DORIS: 11/28/21 surprise Spouse: Prem (2) : QUALIFIERS: Weeks of gestation: 35 weeks Qualified Code(s): Z3A.35 - 35 weeks gestation of COMMENT: anatomy nl, declined genetics and carrier ntd screening. (3) Polycystic kidney disease: COMMENT: baseline ur/pr cr ratio, cmp. asa at 14 weeks. dx at 14 yrs old- genetic- Father has it as well, discussed FOB testing if desired. Needs renal scan at 32 weeks per urology. Ordered (4) Preeclampsia, severe: COMMENT: Status post Celestone 513 and 514. PLAN: Will STO and monitor, repeat labs tonight and tomorrow morning. Discussed induction of labor if labs are still within the abnormal range due to risk of impending help syndrome and will have reduced some risks of prematurity by having 48 hours of Celestone on board. Patient and her agrees to evaluation and induction if labs remain abnormal. Charges/Coding Procedures Urinary/Genital 52xxx-59xxx: 48935-74 non-stress test Interp Multi Select Codes Visit Charges Office Visit/Consults: 69998 OV L3 Est
[2021-10-30 19:28] LABS: AST(SGOT) 54 U/L (15-37); Alanine Aminotransfer ALT/SGPT 83 U/L (13-56); Creatinine, Serum 0.64 mg/dL (0.55-1.02); EST Glomerular Filtration Rate 123 mL/min (>60); Est Glom Filt Rate - Afr Amer 149 mL/min (>60); Estimated Creatinine Clearance 154.11 ml/min; Uric Acid 3.4 mg/dL (2.6-6.0)
[2021-10-30] MEDS: DiphenhydrAMINE 25 MG Capsule 50 MG PO (22:14)
[2021-10-31] VITALS (11 sets, daily range): BP systolic 107–140; BP diastolic 54–90; PULSE 55–81; TEMP 36.2–37.2; O2SAT 92–100
[2021-10-31 05:21] LABS: Hematocrit 35.6 % (37-47); Mean Corp Hgb Conc 33.7 g/dL (32-36); Mean Corpuscular Hgb 32.4 pg (27.0-32.0); Mean Corpuscular Volume 96.2 fL (81-99); Mean Platelet Vol. 11.5 fl (6.2-12.0); Platelet Count 135 K/mm3 (150-450); RBC Distribution Width CV 11.9 % (11.6-14.6); RBC Distribution Width SD 41.3 fl (35.1-43.9); White Blood Count 12.1 K/mm3 (4.4-11.0)
[2021-10-31 05:35] LABS: AST(SGOT) 47 U/L (15-37); Alanine Aminotransfer ALT/SGPT 81 U/L (13-56); Creatinine, Serum 0.39 mg/dL (0.55-1.02); EST Glomerular Filtration Rate 217 mL/min (>60); Est Glom Filt Rate - Afr Amer 262 mL/min (>60); Estimated Creatinine Clearance 252.89 ml/min; Uric Acid 3.1 mg/dL (2.6-6.0)
--- NOTE | 2021-10-31 08:00 | NURSING ---
Dr. Mancuso at bedside talking to patient about POC and induction. The plan is to have patient eat breakfast and get a shower before starting her induction. Ok to wait to take vitals and put patient on the monitor for NST once ready to start induction. Pt wants to wait to do admission questions until after her shower. Dr. Mancuso wants a CBC and CMP Q12 hours from the last set of labs that were drawn. Orders received for cytotec induction.
[2021-10-31] MEDS: 0.9% Saline Lock 10 ML Syringe IV (10:47)
[2021-10-31] MEDS: miSOPROStol 25 MCG TABLET VAGINAL (11:32)
--- NOTE | 2021-10-31 13:22 | HP.PCM.OB_ITS ---
HPI - General General Date of Admission: 10/31/21 HPI Narrative RUTH HENNESSY, is a 21 F who presents for elevated liver enzymes and low platelets. Blood pressures are within normal limits, had one elevated value 2 days ago upon initial evaluation but repeats are normal. Urine protein within normal limits but in the process of 24-hour urine protein. Platelets decreased this morning on follow-up urine protein but liver enzymes are stable. Discussed expectant management versus induction of labor, decision to proceed with induction of labor due to potential risk for developing complete help syndrome or more severe preeclampsia. Status post Celestone x48 hours to reduce the ri sks of prematurity. Maternal Data Information DORIS Calculator Estimated Delivery Date Method Current WG Current Estimate 11/28/21 LMP (Certain) 36w 0d PFSH [facility] Medical History (Updated 10/31/21 @ 13:[address] 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 pets and animals: Yes Smoking Status: Never smoker second hand exposure: No alcohol intake: never substance use type: does not use seatbelt use: always do you feel safe at home: Yes additional social history: - Prem History 1 Elective abortions Hx Para 0 Spontaneous abortions Hx # Term Pregnancies Ectopic pregnancies Hx # Pregnancies Multiple births # of living children Visit Details Expected Delivery Route/Plan Labor Preferences- CB/BF classes: encouraged labor support person: Prem labor intervention preferences: [] pain management options preferred: limited intervention cut cord/dad catch: maybe : yes PP control planned: discussed discussed possible routes of delivery and associated risks: [] special requests: [] Plans Covid status: pos in past counseled regarding risk of covid in vs vaccination and declined vaccination Flu vaccine: declined Tdap vaccine: [] Rhogam: NA LARC form signed: yes Problem list reviewed and updated with the most current plan of care details and appropriate orders placed. Relevant counseling for the gestational age provided. Continue routine care and follow up unless otherwise noted in visit notes/problem list details OB Flowsheet Initial Weight: 144 lb Date -?-?-?-?-?-?-?-?-?-?-?-?- EGA Weight BP Urine Prot -?-?-?-?-?-?-?-?-?-?-?-?- Glucose FHR FuHt Pres Dilation -?-?-?-?-?-?-?-?-?-?-?-?- Effaced St Visit Note 05/10/21 -?-?-?-?-?-?-?-?-?-?-?-?- 11w 1d 144 lb (+0 oz) 120/72 -?-?-?-?-?-?-?-?-?-?-?-?- 160 -?-?-?-?-?-?-?-?-?-?-?-?- SM- CRL cons wit h LMP SM- CRL 4cm cons with LMP 06/08/21 -?-?-?-?-?-?-?-?-?-?-?-?- 15w 2d 146 lb 8 oz (+2 lb 8 oz) 110/82 Negative -?-?-?-?-?-?-?-?-?-?-?-?- Negative 147 -?-?-?-?-?-?-?-?-?-?-?-?- JV- no lof, vagi nal bleeding, + fm (fluttering) 07/09/21 -?-?-?-?-?-?-?-?-?-?-?-?- 19w 5d 153 lb (+9 lb) 130/86 Negative -?-?-?-?-?-?-?-?-?-?--?-?- Negative 155 -?-?-?-?-?-?-?-?-?-?-?-?- JV- no lof, v ag inal bleeding or cramping. anatomy scan was incomplete and showed a marginal previa. will have rpt scn in 2 weeks and at 28 weeks 08/06/21 -?-?-?-?-?-?-?-?-?-?-?-?- 23w 5d 159 lb 6 oz (+15 lb 6 oz) 120/88 Negative -?-?-?-?-?-?-?-?-?-?-?-?- Negative 140 -?-?-?-?-?-?-?-?-?-?-?-?- SM- no vb crampi ng 09/01/21 -?-?-?-?-?-?-?-?-?-?-?-?- 27w 3d 163 lb 8 oz (+19 lb 8 oz) 118/70 Negative -?-?-?-?-?-?-?-?-?-?-?-?- Negative 151 27 -?-?-?-?-?-?-?-?-?-?-?-?- MH-NO VB, LOF. G ood FM. Renal US for pt ordered at 32 wk. 28 w labs with urine PC ratio today. Larc. Will do tdap next visit. 09/15/21 -?-?-?-?-?-?-?-?-?-?-?-?- 29w 3d 165 lb 4 oz (+21 lb 4 oz) 129/81 Negative -?-?-?-?-?-?-?-?-?-?-?-?- Negative 133 29 -?-?-?-?-?-?-?-?-?-?-?-?- JV_ nml GCT, nee ds 32 week scan pt states it is scheduled. 09/24/21 -?-?-?-?-?-?-?-?-?-?-?-?- 30w 5d 168 lb (+24 lb) 124/80 -?-?-?-?-?-?-?-?-?-?-?-?- 135 30 -?-?-?-?-?-?-?-?-?-?-?-?- SM- no vb lof go od fm no regular ctx 10/08/21 -?-?-?-?-?-?-?-?-?-?-?-?- 32w 5d 170 lb 4 oz (+26 lb 4 oz) 100/70 Negative -?-?-?-?-?-?-?-?-?-?-?-?- Negative 140 33 -?-?-?-?-?-?-?-?-?-?-?-?- JV- no lof, vagi nal bleeding, or dec fm. urology referral needed 10/22/21 -?-?-?-?-?-?-?-?-?-?-?-?- 34w 5d 174 lb (+30 lb) 120/82 Negative -?-?-?-?-?-?-?-?-?-?-?-?- Negative 145 34 -?-?-?-?-?-?-?-?-?-?-?-?- JV- no lof, vagi nal bleeding, or dec fm. pt c/o a flap of tissue in the vagina this was examined and noted to be a hymen remnant that was swollen, 10/28/21 -?-?-?-?-?-?-?--?-?-?-?-?- 35w 4d 176 lb 8 oz (+32 lb 8 oz) 138/84 Negative -?-?-?-?-?-?-?-?-?-?-?-?- Negative 134 35 -?-?-?-?-?-?-?-?-?-?-?-?- JV- no lof, vagi nal bleeding, or dec fm. pt states that she just does not feel good. She has some nausea but no headaches or visual changes. JV- no lof, vaginal bleeding , or dec fm. pt states that she just does not feel good. She has some nausea but no headaches or visual changes.. ordering outpatient [facility] labs now. will call with results. 10/29/21 -?-?-?-?-?-?-?-?-?--?-?-?- 35w 5d 173 lb 8.061 oz (+29 lb 8.061 oz) 144/91 140/90 148/92 129/80 130/83 133/84 134/81 134/80 128/77 130/75 128/75 -?-?-?-?-?-?-?-?--?-?-?-?- -?-?-?-?-?-?-?-?-?-?-?-?- 10/31/21 -?-?-?-?-?-?-?-?-?-?-?-?- 36w 0d 126/82 125/67 107/54 140/76 132/80 140/90 -?-?-?-?-?-?-?-?-?-?-?-?- -?-?-?-?-?-?-?-?-?-?-?-?- NST FHR Rate Baby A Baseline: 130 Variability:: Moderate Accelerations:: 15 x 15 Decelerations:: None NST Reactive:: Yes FHR Category:: Category I Uterine Activity:: irregular ROS Constitutional Constitutional: Reports systems reviewed and no addt'l complaints, except as documented Eyes Eyes: Denies change in vision ENT HEENT: Reports systems reviewed and no addt'l complaints, except as documented; Denies headache(s) Cardiovascular Cardiovascular: Reports systems reviewed and no addt'l complaints, except as documented; Denies chest pain or dyspnea Respiratory/Chest Respiratory/Chest: Reports systems reviewed and no addt'l complaints, except as documented Gastrointestinal Gastrointestinal: Reports systems reviewed and no addt'l complaints, except as documented; Denies abdominal pain Genitourinary Genitourinary: Reports systems reviewed and no addt'l complaints, except as documented, contractions Details: present (irregular) and movement Details: present; Denies dysuria or genital lesions Musculoskeletal Musculoskeletal: Reports systems reviewed and no addt'l complaints, except as documented Neurologic Neurologic: Reports systems reviewed and no addt'l complaints, except as documented Endocrine Endocrinology: Reports systems reviewed and no addt'l complaints, except as documented Vital Signs Vital Signs Vital Signs: 10/30/21 14:19 10/30/21 15:18 10/30/21 16:54 Temperature Temperature Source Pulse Rate 68 76 82 Blood Pressure 128/82 H 123/61 H 123/82 H BP Systolic 128 123 123 BP Diastolic 82 61 82 Pulse Ox 10/30/21 16:55 10/30/21 18:55 10/30/21 20:17 Temperature 98.2 F 98.2 F 98.1 F Temperature Source Temporal Temporal Temporal Pulse Rate 71 Blood Pressure 128/75 H BP Systolic 128 BP Diastolic 75 Pulse Ox 98 10/30/21 20:19 10/30/21 23:14 10/31/21 05:05 Temperature 97.2 F L Temperature Source Temporal Pulse Rate 62 64 55 L Blood Pressure 126/82 H 125/67 H 107/54 L BP Systolic 126 125 107 BP Diastolic 82 67 54 Pulse Ox 96 10/31/21 09:33 10/31/21 10:39 10/31/21 10:41 Temperature 98.5 F Temperature Source Temporal Pulse Rate 81 76 Blood Pressure 140/76 H 132/80 H BP Systolic 140 132 BP Diastolic 76 80 Pulse Ox 99 100 10/31/21 12:52 Temperature 98.0 F Temperature Source Temporal Pulse Rate 67 Blood Pressure 140/90 H BP Systolic 140 BP Diastolic 90 Pulse Ox 97 Weight Weight: 172 lb 2.896 oz Body Mass Index (BMI) 24.0 Physical Exam Const alert, oriented x3, no apparent distress and healthy appearing HEENT normocephalic and moist oral mucous membranes Head and Scalp: atraumatic Neck full ROM, no lymphadenopathy, supple and thyroid normal General: trachea midline Lymph Lymphatic: no lymphadenopathy noted Chest inspection of chest normal Resp normal respiratory effort Cardio regular rate GI normal to inspection, nondistended, normoactive bowel sounds, soft to palpation and non-tender Inspection: gravid external exam normal Manual OB Exam: estimated gestational size appropriate, presentation cephalic, dilated 0, effaced and station Extremity normal to inspection General Extremity: Negative for edema Skin no rashes or lesions noted Neuro no focal motor deficits and deep tendon reflexes 2+ bilaterally Motor Exam: strength 5/5 throughout and clonus absent Psych mental status grossly normal Labs Labs Labs: Blood Type AB POSITIVE Antibody Screen NEGATIVE Hct 35.6 % (37-47) L Hgb 12.0 g/dL (12.0-15.0) Obstetrics US Syphilis Total Ab Non-reactive Rubella IgG Antibody Pending Hep Bs Antigen Non-Reactive (Nonreactive) Chlamydia DNA (JESE) Negative (Negative) Neisseria gonorrhoeae DNA (JESE) Negative (Negative) HIV 1&2 Antibody Non-Reactive (Nonreactive) Glucose 1 Hr 50 gm 100 mg/dL (70-140) Group B Strep DNA Negative (Negative) Assessment & Plan (1) Preeclampsia, severe: COMMENT: Status post Celestone 513 and 514. Elevated liver enzymes and low platelets but not in the range to diagnose hellp syndrome, recommend proceeding with induction of labor due to risks and being after 34 weeks and status post Celestone. Patient and agree to induction. Proceed with Cytotec induction of labor. We will start magnesium sulfate if develops neurologic symptoms or severely elevated blood pressures. (2) : QUALIFIERS: Weeks of gestation: 35 weeks Qualified Code(s): Z3A.35 - 35 weeks gestation of COMMENT: anatomy nl, declined genetics and carrier ntd screening. (3) Supervision of high risk , antepartum: COMMENT: PRR DORIS: 11/28/21 surprise Spouse: Prem (4) Polycystic kidney disease: COMMENT: baseline ur/pr cr ratio, cmp. asa at 14 weeks. dx at 14 yrs old- genetic- Father has it as well, discussed FOB testing if desired. Needs renal scan at 32 weeks per urology. Ordered PLAN: See above assessment and plan for induction of labor info. Plan epidural if desired. Plan Cytotec and Pitocin, AROM when able. Magnesium sulfate if severely elevated blood pressures or neurologic symptoms. Labs every 12 hours or as needed if change in clinical status
[2021-10-31 14:11] LABS: Amphetamine Urine VISTA NEGATIVE (<1000 ng/mL); Barbiturate Urine VISTA NEGATIVE (< 200 ng/mL); Benzodiazepine Urine VISTA NEGATIVE (< 200 ng/mL); Cocaine Urine VISTA NEGATIVE (< 300 ng/mL); Ecstacy Urine VISTA NEGATIVE (< 500 ng/mL); Methadone Urine VISTA NEGATIVE (< 300 ng/mL); PCP Urine VISTA NEGATIVE (< 25 ng/mL); THC Urine VISTA NEGATIVE (< 50 ng/mL); Vista UDS pH Range 6
[2021-10-31 15:23] LABS: 24 Hour Urine Protein 333.4 mg/24HR (<150 MG/24HR); 24HR. Urine Creatinine 1.06 g/24 HR (0.70-1.90); Urine Protein (24 Hour) < 6.0 mg/dL (<11.9)
[2021-10-31 15:32] LABS: Creat.Clear Total Volume 5850 mL; Creatinine Clearance 196 ml/min (100-200); Creatinine Serum Creat 0.4 mg/dL (0.6-1.0); Creatinine Urine 18.8 mg/dL (NO RANGE EST.); EST Glomerular Filtration Rate 218 mL/min (>60); Est Glom Filt Rate - Afr Amer 264 mL/min (>60)
[2021-10-31] MEDS: miSOPROStol 25 MCG TABLET 50 MCG VAGINAL ×2 (16:20→22:10)
[2021-10-31 17:46] LABS: Absolute Lymphocyte Count 1.29 X10^3/uL (0.83-4.51); Absolute Neutrophil Count 9.2 X10^3/uL (2.0-7.7); Basophil# 0.02 X10^3/uL; Basophil% 0.2 % (0-1); Eosinophil# 0.01 X10^3/uL; Eosinophils% 0.1 % (0-5); Hematocrit 38.2 % (37-47); Lymphocyte # 1.29 X10^3/ul (0.83-4.51); Lymphocyte % 11.1 % (19-41); Mean Platelet Vol. 11.5 fl (6.2-12.0); Monocyte# 0.98 X10^3/uL; Monocyte% 8.4 % (0-10); NRBC Flagged by Analyzer 0 % (0-5); Neutrophil # 9.21 X10^3/uL (2.7-7.7); Neutrophil % 79.3 % (47-70); Platelet Count 141 K/mm3 (150-450); RBC Distribution Width SD 42.7 fl (35.1-43.9); Red Blood Count 3.94 M/mm3 (4.2-5.4); White Blood Count 11.6 K/mm3 (4.4-11.0)
[2021-10-31 18:26] LABS: Albumin, Serum 2.9 g/dL (3.2-5.0); BUN 9 mg/dL (7-18); BUN/Creat Ratio 14.4 RATIO (10-20); Creatinine, Serum 0.62 mg/dL (0.55-1.02); EST Glomerular Filtration Rate 127 mL/min (>60); Est Glom Filt Rate - Afr Amer 154 mL/min (>60); Estimated Creatinine Clearance 159.08 ml/min; Glucose 130 mg/dL (74-106); Protein, Total 6.7 g/dL (6.4-8.2)
[2021-10-31 18:27] LABS: ALB/GLOB Ratio 0.8 RATIO (0.9-2.4); AST(SGOT) 48 U/L (15-37); Alanine Aminotransfer ALT/SGPT 87 U/L (13-56); Alkaline Phosphatase 114 U/L (45-117); Anion Gap 7 (5-15); Calcium,Total 8.6 mg/dL (8.5-10.1); Chloride 110 mmol/L (98-107); Globulin 3.8 g/dL (2.2-4.2); Potassium 3.6 mmol/L (3.5-5.1); Sodium Level 140 mmol/L (136-145)
[2021-10-31] MEDS: DiphenhydrAMINE 25 MG Capsule 50 MG PO (22:14)
[2021-10-31] MEDS: oxyCODONE 5 MG Tablet PO (23:20)
[2021-11-01] VITALS (49 sets, daily range): BP systolic 105–168; BP diastolic 58–101; PULSE 51–83; TEMP 36.1–37.1; O2SAT 84–100
[2021-11-01] MEDS: oxyCODONE 5 MG Tablet PO (03:30)
[2021-11-01] MEDS: miSOPROStol 25 MCG TABLET 50 MCG VAGINAL (04:16)
[2021-11-01 05:42] LABS: Absolute Lymphocyte Count 1.63 X10^3/uL (0.83-4.51); Absolute Neutrophil Count 10.6 X10^3/uL (2.0-7.7); Basophil# 0.02 X10^3/uL; Basophil% 0.1 % (0-1); Differential Indicated SCAN CRITERIA MET; Eosinophil# 0.04 X10^3/uL; Eosinophils% 0.3 % (0-5); Hematocrit 37.5 % (37-47); Hemoglobin 12.8 g/dL (12.0-15.0); Lymphocyte # 1.63 X10^3/ul (0.83-4.51); Lymphocyte % 11.7 % (19-41); Mean Corp Hgb Conc 34.1 g/dL (32-36); Mean Corpuscular Volume 96.6 fL (81-99); Mean Platelet Vol. 11.2 fl (6.2-12.0); Monocyte# 1.57 X10^3/uL; Monocyte% 11.2 % (0-10); NRBC Flagged by Analyzer 0 % (0-5); Neutrophil # 10.62 X10^3/uL (2.7-7.7); POSITIVE DIFFERENTIAL YES; Platelet Count 137 K/mm3 (150-450); RBC Distribution Width SD 42.1 fl (35.1-43.9); Red Blood Count 3.88 M/mm3 (4.2-5.4)
[2021-11-01 05:58] LABS: ALB/GLOB Ratio 0.8 RATIO (0.9-2.4); AST(SGOT) 42 U/L (15-37); Alanine Aminotransfer ALT/SGPT 83 U/L (13-56); Albumin, Serum 2.7 g/dL (3.2-5.0); Alkaline Phosphatase 108 U/L (45-117); Anion Gap 6 (5-15); BUN 9 mg/dL (7-18); BUN/Creat Ratio 19.4 RATIO (10-20); Calcium,Total 8.2 mg/dL (8.5-10.1); Chloride 109 mmol/L (98-107); Creatinine, Serum 0.46 mg/dL (0.55-1.02); EST Glomerular Filtration Rate 179 mL/min (>60); Est Glom Filt Rate - Afr Amer 216 mL/min (>60); Estimated Creatinine Clearance 214.41 ml/min; Globulin 3.6 g/dL (2.2-4.2); Glucose 96 mg/dL (74-106); Potassium 3.6 mmol/L (3.5-5.1); Protein, Total 6.3 g/dL (6.4-8.2); Sodium Level 139 mmol/L (136-145)
[2021-11-01 07:04] LABS: Atypical Lymphocyte 1+ %
[2021-11-01 09:28] LABS: Rubella IgG Reactive (Nonreactive)
[2021-11-01] MEDS: 0.9% Normal Saline Single 100 ML IV.SOLN. INTRA-UTER (10:00)
[2021-11-01] MEDS: Lactated Ringers 1,000 ML 50 ML IV (12:45)
[2021-11-01] MEDS: Oxytocin 30 units/NS 500 ml 30 UNITS/500 ML IV.SOLN IV (12:46)
[2021-11-01] MEDS: Acetaminophen 500 MG Tablet PO (12:47)
[2021-11-01 13:30] LABS: Pathologist Review Reviewed
[2021-11-01] MEDS: Lactated Ringers 500 ML 999 ML IV (14:59)
[2021-11-01] MEDS: fentaNYL-bupivacaine (epidural) 100 ML BAG EPIDURAL ×2 (16:32→19:37)
[2021-11-01 18:17] LABS: Absolute Lymphocyte Count 1.15 X10^3/uL (0.83-4.51); Absolute Neutrophil Count 10.5 X10^3/uL (2.0-7.7); Basophil# 0.03 X10^3/uL; Basophil% 0.2 % (0-1); Eosinophil# 0.02 X10^3/uL; Eosinophils% 0.1 % (0-5); Hematocrit 39.1 % (37-47); Hemoglobin 13.5 g/dL (12.0-15.0); Lymphocyte # 1.15 X10^3/ul (0.83-4.51); Lymphocyte % 8.6 % (19-41); Mean Corp Hgb Conc 34.5 g/dL (32-36); Mean Corpuscular Hgb 32.9 pg (27.0-32.0); Mean Corpuscular Volume 95.4 fL (81-99); Mean Platelet Vol. 11.6 fl (6.2-12.0); Monocyte% 11.9 % (0-10); NRBC Flagged by Analyzer 0 % (0-5); Neutrophil # 10.54 X10^3/uL (2.7-7.7); Neutrophil % 78.4 % (47-70); POSITIVE DIFFERENTIAL YES; Platelet Count 135 K/mm3 (150-450); RBC Distribution Width CV 11.9 % (11.6-14.6); RBC Distribution Width SD 41.4 fl (35.1-43.9); White Blood Count 13.5 K/mm3 (4.4-11.0)
[2021-11-01 18:26] LABS: Differential Indicated SCAN CRITERIA MET
[2021-11-01 18:33] LABS: ALB/GLOB Ratio 0.8 RATIO (0.9-2.4); AST(SGOT) 47 U/L (15-37); Alanine Aminotransfer ALT/SGPT 81 U/L (13-56); Albumin, Serum 2.8 g/dL (3.2-5.0); Alkaline Phosphatase 119 U/L (45-117); Anion Gap 10 (5-15); BUN 9 mg/dL (7-18); Calcium,Total 8.7 mg/dL (8.5-10.1); Chloride 105 mmol/L (98-107); Creatinine, Serum 0.39 mg/dL (0.55-1.02); EST Glomerular Filtration Rate 217 mL/min (>60); Est Glom Filt Rate - Afr Amer 262 mL/min (>60); Estimated Creatinine Clearance 252.89 ml/min; Globulin 3.6 g/dL (2.2-4.2); Glucose 90 mg/dL (74-106); Potassium 3.2 mmol/L (3.5-5.1); Protein, Total 6.4 g/dL (6.4-8.2); Sodium Level 138 mmol/L (136-145)
[2021-11-01 19:08] LABS: Differential Comment SCANNED
[2021-11-01] MEDS: Lactated Ringers 1,000 ML 200 ML IV (19:34)
[2021-11-02] VITALS (23 sets, daily range): BP systolic 116–155; BP diastolic 69–94; PULSE 60–100; RESP 14–16; TEMP 36.2–37.4; O2SAT 97
[2021-11-02] MEDS: Lactated Ringers 1,000 ML 200 ML IV (00:08)
[2021-11-02] MEDS: Oxytocin 30 units/NS 500 ml 30 UNITS/500 ML IV.SOLN 334 UNITS IV (01:30)
--- NOTE | 2021-11-02 01:42 | OP.PCM_ITS ---
Assessment & Plan (1) Preeclampsia, severe: COMMENT: Status post Celestone 513 and 514. Elevated liver enzymes and low platelets but not in the range to diagnose hellp syndrome, recommend proceeding with induction of labor due to risks and being after 34 weeks and status post Celestone. Patient and agree to induction. Proceed with Cytotec induction of labor. We will start magnesium sulfate if develops neurologic symptoms or severely elevated blood pressures. (2) : QUALIFIERS: Weeks of gestation: 35 weeks Qualified Code(s): Z3A.35 - 35 weeks gestation of COMMENT: anatomy nl, declined genetics and carrier ntd screening. (3) Supervision of high risk , antepartum: COMMENT: PRR DORIS: 11/28/21 surprise Spouse: Prem (4) Polycystic kidney disease: COMMENT: baseline ur/pr cr ratio, cmp. asa at 14 weeks. dx at 14 yrs old- genetic- Father has it as well, discussed FOB testing if desired. Needs renal scan at 32 weeks per urology. Ordered (5) Vaginal delivery: COMMENT: IOL 36 preeclampsia severe boy James SM Maternal Data Information DORIS Calculator Estimated Delivery Date Method Current WG Current Estimate 11/28/21 LMP (Certain) 36w 2d Vaginal Delivery Operative Information Date of Procedure: 11/02/21 Pre-Operative Diagnosis: IOL preeclampsia with severe features Post-Operative Diagnosis: same Surgery / Procedure Performed: Spontaneous Vaginal Delivery Type of Anesthesia: Epidural Special Medications: none Estimated Blood Loss: 200 Fluids Replaced: crystalloid Findings Description of Procedure: Patient began pushing and delivered the head in the SEBASTIÁN presentation. The head was delivered atraumatically and a loose nuchal cord ?1 was identified and the infant delivered through without complication. The anterior and posterior shoulders delivered without complication followed by the rest of the and the infant was placed on the maternal abdomen. Delayed cord clamping was employed for approximately 60 seconds. Cord was clamped and cut and gentle traction was applied to the cord and the placenta delivered spontaneously immediately following it was noted to be intact with three-vessel cord. The perineum and vagina were inspected and noted to have a second-degree perineal laceration that was repaired in the usual fashion with 3-0 Vicryl repeat. EBL was 200. Patient and infant tolerated delivery well. Presentation: SEBASTIÁN Amniotic Membrane Rupture Type: Artificial Amniotic Fluid Description: Clear Placental Delivery Description: Spontaneous Placenta Disposition: [facility] Cord Vessel Description: 3 Vessels Cord Entanglement: Around neck x 1, loose Infant A Gender: Male Delayed Cord Clamping: Yes Post Vaginal Delivery Medications Given After Delivery: IV Pitocin Episiotomy Description: None Laceration: Perineal Extension/lac and 2nd degree Complication Complications: None Procedures Urinary/Genital [id number]: [id number] Vaginal Delivery [facility]
--- NOTE | 2021-11-02 01:48 | PCM.DC ---
Discharge Instructions Diet Discharge Diet: No restrictions Activity Discharge Activity: Return to Normal Activity, May Not Drive (while taking narcotic pain medications.) and May Shower May resume sexual activity in: 4-6 weeks Dressing / Incision Call your doctor if your incision/area has: Continuous Slow Oozing, Sudden Increased Bleeding, Increased Pain/ Swelling, Increased Redness and Foul Smelling Discharge Follow Up Care Please Follow Up With: Lindsay Mancuso MD When: Call [phone] to make an appointment with your doctor in 6 weeks. If you had elevated blood pressure or 4th degree laceration, you will need to be seen in 2 weeks. Test Results: Test results from this visit will be discussed in further detail at your follow-up appointment, if applicable. Discharge Plan Admission Admit Date/Time: 10/31/21 07:19 Attending Provider: Lindsay Mancuso Primary Care Provider: Care Physician,Estephania Primary Discharge Orders/Prescriptions Prescriptions: No Action PNV-DHA 27 mg iron-1 mg -300 mg capsule 1 cap PO DAILY RF: 0 Referrals / Follow Up: Care Physician,No Primary [Primary Care Provider] - Disposition Disposition (needs filled in before D/C Order can be placed): Home, Self Care
[2021-11-02 02:28] LABS: Absolute Lymphocyte Count 0.97 X10^3/uL (0.83-4.51); Absolute Neutrophil Count 13.2 X10^3/uL (2.0-7.7); Basophil# 0.03 X10^3/uL; Basophil% 0.2 % (0-1); Eosinophil# 0.02 X10^3/uL; Eosinophils% 0.1 % (0-5); Hematocrit 36.9 % (37-47); Hemoglobin 12.7 g/dL (12.0-15.0); Lymphocyte # 0.97 X10^3/ul (0.83-4.51); Mean Corp Hgb Conc 34.4 g/dL (32-36); Mean Corpuscular Hgb 32.6 pg (27.0-32.0); Mean Corpuscular Volume 94.9 fL (81-99); Mean Platelet Vol. 11.3 fl (6.2-12.0); Monocyte# 1.91 X10^3/uL; Monocyte% 11.7 % (0-10); NRBC Flagged by Analyzer 0 % (0-5); Neutrophil # 13.22 X10^3/uL (2.7-7.7); Neutrophil % 81.1 % (47-70); POSITIVE DIFFERENTIAL YES; Platelet Count 150 K/mm3 (150-450); RBC Distribution Width CV 11.9 % (11.6-14.6); Red Blood Count 3.89 M/mm3 (4.2-5.4); White Blood Count 16.3 K/mm3 (4.4-11.0)
[2021-11-02 02:43] LABS: ALB/GLOB Ratio 0.7 RATIO (0.9-2.4); AST(SGOT) 47 U/L (15-37); Alanine Aminotransfer ALT/SGPT 85 U/L (13-56); Albumin, Serum 2.4 g/dL (3.2-5.0); Alkaline Phosphatase 117 U/L (45-117); Anion Gap 8 (5-15); BUN 8 mg/dL (7-18); BUN/Creat Ratio 18.6 RATIO (10-20); Chloride 107 mmol/L (98-107); Creatinine, Serum 0.43 mg/dL (0.55-1.02); EST Glomerular Filtration Rate 194 mL/min (>60); Est Glom Filt Rate - Afr Amer 235 mL/min (>60); Estimated Creatinine Clearance 229.37 ml/min; Globulin 3.4 g/dL (2.2-4.2); Glucose 96 mg/dL (74-106); Potassium 3.5 mmol/L (3.5-5.1); Protein, Total 5.8 g/dL (6.4-8.2); Sodium Level 137 mmol/L (136-145)
[2021-11-02 02:45] LABS: Differential Indicated SCAN CRITERIA MET
--- NOTE | 2021-11-02 03:05 | NURSING ---
infant transferred to [facility] for respiratory distress. Hospital electric breast pump brought into room and set up for pt use. pt encouraged to pump q2-3 hours. pt verbalized understanding.
[2021-11-02] MEDS: 0.9% Saline Lock 10 ML Syringe IV ×3 (04:19→20:22)
[2021-11-02 12:42] LABS: Pathologist Review Reviewed
[2021-11-02 12:46] LABS: Pathologist Review Reviewed
[2021-11-02] MEDS: Naproxen 500 MG Tablet PO (13:14)
[2021-11-02] MEDS: Prenatal Vits Tablet 1 TABLET PO (13:14)
[2021-11-02] MEDS: Sodium Citrate/Citric Acid 30 ML UDC PO (14:10)
[2021-11-02 14:16] LABS: Hematocrit 39.4 % (37-47); Hemoglobin 13.4 g/dL (12.0-15.0); Mean Corpuscular Hgb 32.4 pg (27.0-32.0); Mean Corpuscular Volume 95.2 fL (81-99); Mean Platelet Vol. 11.4 fl (6.2-12.0); Platelet Count 168 K/mm3 (150-450); RBC Distribution Width CV 12.1 % (11.6-14.6); RBC Distribution Width SD 42.1 fl (35.1-43.9); Red Blood Count 4.14 M/mm3 (4.2-5.4); White Blood Count 13.6 K/mm3 (4.4-11.0)
[2021-11-02 14:30] LABS: ALB/GLOB Ratio 0.7 RATIO (0.9-2.4); AST(SGOT) 49 U/L (15-37); Alanine Aminotransfer ALT/SGPT 88 U/L (13-56); Albumin, Serum 2.6 g/dL (3.2-5.0); Alkaline Phosphatase 122 U/L (45-117); Anion Gap 5 (5-15); BUN 8 mg/dL (7-18); BUN/Creat Ratio 15.7 RATIO (10-20); Chloride 107 mmol/L (98-107); Creatinine, Serum 0.51 mg/dL (0.55-1.02); EST Glomerular Filtration Rate 160 mL/min (>60); Est Glom Filt Rate - Afr Amer 193 mL/min (>60); Estimated Creatinine Clearance 193.39 ml/min; Globulin 3.6 g/dL (2.2-4.2); Glucose 84 mg/dL (74-106); Potassium 3.9 mmol/L (3.5-5.1); Protein, Total 6.2 g/dL (6.4-8.2); Sodium Level 138 mmol/L (136-145)
--- NOTE | 2021-11-02 14:37 | CT_ITS ---
STUDY: CT ABDOMEN AND PELVIS WITH AND WITHOUT CONTRAST REASON FOR EXAM: Female, 21 years old. Epigastric pain and elevated liver labs. The patient is earlier this morning. RADIATION DOSAGE (If Supplied By Facility): CTDIvol = ( 8.98 ) mGy, DLP = ( 720.92 ) mGycm TECHNIQUE: Transaxial images were obtained from the dome of the diaphragm to the symphysis pubis without oral contrast. 100 ml isovue 300 was administered. Sagittal and coronal images were reconstructed. Individualized dose optimization techniques were used for this CT. COMPARISON: None. FINDINGS: The visualized lung bases are unremarkable. The visualized portions of the heart are within normal limits. Normal liver. Normal gallbladder and extrahepatic biliary system. Normal spleen. Normal pancreas. Normal bilateral adrenal glands. Both kidneys are diffusely enlarged with multiple cysts in keeping with the bilateral polycystic kidney disease. There is a small hiatal hernia. Normal small intestine. Normal colon. The appendix is visualized and appears normal. Normal abdominal aorta. Normal inferior vena cava. Normal retroperitoneum. Normal urinary bladder. Diffuse enlargement of the uterus with the hyperdense material within the endometrium most likely secondary to the recent delivery. There is a small umbilical hernia containing fat. Normal osseous structures. CT/CT Abd/Pelvis W/WO Contrast IMPRESSION: Findings and can with bilateral polycystic kidney disease. Diffuse enlargement of the uterus with hyperdense material within the endometrium in keeping with the recent state. Electronically Signed: Leonel Carrington MD at 15:18 EDT ,
[2021-11-02 15:57] LABS: Amylase 60 U/L (25-115); Lipase 229 U/L (73-393)
--- NOTE | 2021-11-02 18:43 | PCM.PN.BLA ---
Progress Note Patient reevaluated for epigastric pain. Upon further evaluation patient did admit to pruritus increasing over the last several weeks. Bile acids hepatitis panel and CT of the abdomen pelvis ordered. Repeat CBC and CMP stable except for elevated total bilirubin. Upon review normal gallbladder and liver upon imaging. Patient pain did improve with Bicitra. Continue expectant management. Discussed possible cholestasis diagnosis.
[2021-11-03 03:52] VITALS: BP 114/73; PULSE 73; RESP 16; TEMP 36.4
[2021-11-03 05:49] LABS: Hematocrit 35.4 % (37-47); Hemoglobin 11.9 g/dL (12.0-15.0); Mean Corp Hgb Conc 33.6 g/dL (32-36); Mean Corpuscular Hgb 32.5 pg (27.0-32.0); Mean Corpuscular Volume 96.7 fL (81-99); Mean Platelet Vol. 10.9 fl (6.2-12.0); Platelet Count 150 K/mm3 (150-450); RBC Distribution Width SD 42.3 fl (35.1-43.9); Red Blood Count 3.66 M/mm3 (4.2-5.4); White Blood Count 8.7 K/mm3 (4.4-11.0)
[2021-11-03 06:05] LABS: ALB/GLOB Ratio 0.7 RATIO (0.9-2.4); AST(SGOT) 39 U/L (15-37); Alanine Aminotransfer ALT/SGPT 74 U/L (13-56); Albumin, Serum 2.5 g/dL (3.2-5.0); Alkaline Phosphatase 116 U/L (45-117); Anion Gap 7 (5-15); BUN 13 mg/dL (7-18); BUN/Creat Ratio 26.7 RATIO (10-20); Calcium,Total 8.7 mg/dL (8.5-10.1); Chloride 110 mmol/L (98-107); Creatinine, Serum 0.49 mg/dL (0.55-1.02); EST Glomerular Filtration Rate 169 mL/min (>60); Est Glom Filt Rate - Afr Amer 204 mL/min (>60); Estimated Creatinine Clearance 201.28 ml/min; Globulin 3.4 g/dL (2.2-4.2); Glucose 89 mg/dL (74-106); Protein, Total 5.9 g/dL (6.4-8.2); Sodium Level 141 mmol/L (136-145)
--- NOTE | 2021-11-03 07:52 | PN.OBGYN_ITS ---
Subjective Subjective Patient doing well without complaints. Tolerating PO. Ambulating and voiding without difficulty. Feeding well. Denies chest pain, shortness of breath, calf pain/swelling, fevers, chills, lightheadedness. She is sleepy during exam today but states that the epigastric pain is resolved. Objective Data Objective Data Vital Signs: Vital Signs Temp Pulse Resp BP Pulse Ox 97.5 F L 73 16 114/73 97 11/03/21 03:52 11/03/21 03:52 11/03/21 03:52 11/03/21 03:52 11/02/21 01:53 Oxygen Delivery Method Room Air Weight: 172 lb 2.896 oz Body Mass Index (BMI) 24.0 Intake & Output: Intake and Output for Last 24 Hours 11/01/21 11/02/21 11/03/21 23:59 23:59 23:59 Intake Total 4241.65 / 4241.65 1812.23 / 1812.23 Output Total 3800 / 3800 1950 / 1950 Balance 441.65 / 441.65 -137.77 / -137.77 Lab / Micro Data Result Diagrams: 11/03/21 05:40 11/03/21 05:40 Labs: Laboratory Results - last 24 hr 11/01/21 17:45: Diff Path Review Reviewed 11/02/21 02:20: Diff Path Review Reviewed 11/02/21 13:45: WBC 13.6 H, RBC 4.14 L, Hgb 13.4, Hct 39.4, MCV 95.2, MCH 32.4 H , MCHC 34.0, RDW Std Deviation 42.1, RDW Coeff of Jerry 12.1, Plt Count 168, MPV 11.4 11/02/21 13:45: Sodium 138, Potassium 3.9, Chloride 107, Carbon Dioxide 26.0, Anion Gap 5, BUN 8, Creatinine 0.51 L, Estim Creat Clear Calc 193.39, Est GFR (MDRD) Af Amer 193, Est GFR (MDRD) Non-Af 160, BUN/Creatinine Ratio 15.7, Glu cose 84, Calcium 9.0, Total Bilirubin 2.30 H, AST 49 H, ALT 88 H, Alkaline Phosphatase 122 H, Total Protein 6.2 L, Albumin 2.6 L, Globulin 3.6, Albumi n/Globulin Ratio 0.7 L 11/02/21 13:45: Amylase 60, Lipase 229 11/03/21 05:40: Sodium 141, Potassium 4.0, Chloride 110 H, Carbon Dioxide 24.0, Anion Gap 7, BUN 13, Creatinine 0.49 L, Estim Creat Clear Calc 201.28, Est GFR (MDRD) Af Amer 204, Est GFR (MDRD) Non-Af 169, BUN/Creatinine Ratio 26.7 H, Glucose 89, Calcium 8.7, Total Bilirubin 1.00, AST 39 H, ALT 74 H, Alkaline Phosphatase 116, Total Protein 5.9 L, Albumin 2.5 L, Globulin 3.4, Albumin/Globulin Ratio 0.7 L 11/03/21 05:40: WBC 8.7, RBC 3.66 L, Hgb 11.9 L, Hct 35.4 L, MCV 96.7, MCH 32.5 H, MCHC 33.6, RDW Std Deviation 42.3, RDW Coeff of Jerry 12.0, Plt Count 150, MPV 10.9 Micro: Microbiology 10/30/21 Unknown Genital vaginal Group B Streptococcus Culture - Final Group B Beta Streptococcus is not isolated. 10/30/21 13:35 Urine, Clean Catch Urine Culture - Final Mixed Gram Positive Organisms 10/31/21 07:56 Nasal Secretion SARS-CoV-2 Antigen (Rapid) - Final Radiography Diagnostic Testing: Radiology Impression Abdomen/Pelvis CT 11/02/21 14:37 IMPRESSION: Findings and can with bilateral polycystic kidney disease. Diffuse enlargement of the uterus with hyperdense material within the endometrium in keeping with the recent state. Electronically Signed: Leonel Carrington MD at 15:18 EDT , ROS Constitutional Constitutional: Denies chills, fatigue, fever(s), poor appetite or weakness Eyes Eyes: Denies blurry vision, change in vision, seeing flashes or spots in vision ENT HEENT: Denies dizziness, headache(s), loss taste/smell or sore throat Cardiovascular Cardiovascular: Denies chest pain, dizziness, dyspnea, irregular heart rhythm, palpitations or rapid heart rate Respiratory/Chest Respiratory/Chest: Denies chest tightness, cough, dyspnea or breast pain Gastrointestinal Gastrointestinal: Denies abdominal pain, constipation or vomiting Genitourinary Genitourinary: Denies dysuria or flank pain Musculoskeletal Musculoskeletal: Denies difficulty walking, joint pain, limited range of motion or numbness Neurologic Neurologic: Denies abnormal movements, abnormal speech, dizziness, numbness, seizure-like activity or syncope Psychiatric Psychiatric: Denies anxiety, behavioral changes, change in appetite, confusion, depression or suicidal thoughts Physical Exam Const alert, oriented x3 and no apparent distress General Appearance: cooperative and comfortable Resp normal respiratory effort Cardio regular rate GI normal to inspection, nondistended, normoactive bowel sounds GI Narrative: uterus is firm below umbilicus Palpation: soft Bimanual Exam - Adnexa, Other: Negative for cul-de-sac fullness Back/Spine no CVA tenderness and thoraco-lumbar ROM normal Extremity normal to inspection, no clubbing, cyanosis or edema, no calf tenderness and no pedal edema Psych mental status grossly normal, thought process normal, cooperative, affect normal, speech normal, activity/motor behavior normal, denies homicidal ideation and denies suicidal ideation Assessment & Plan (1) Polycystic kidney disease: COMMENT: baseline ur/pr cr ratio, cmp. asa at 14 weeks. dx at 14 yrs old- genetic- Father has it as well, discussed FOB testing if desired. Needs renal scan at 32 weeks per urology. Ordered (2) Preeclampsia, severe: COMMENT: Status post Celestone 513 and 514. Elevated liver enzymes and low platelets but not in the range to diagnose hellp syndrome, recommend proceeding with induction of labor due to risks and being after 34 weeks and status post Celestone. Patient and agree to induction. Proceed with Cytotec induction of labor. We will start magnesium sulfate if develops neurologic symptoms or severely elevated blood pressures. PLAN: LFT's trending down, bp normal, and CT of abdomen is normal. s/p PPD # 2 1. routine post delivery care 2. breast feeding- support given 3. rh positive 4. rubella immune 5. dc to home today
[2021-11-03 08:47] VITALS: BP 124/83; PULSE 66; RESP 16; TEMP 36.3
[2021-11-03] MEDS: Prenatal Vits Tablet 1 TABLET PO (10:43)
--- NOTE | 2021-11-03 11:59 | CHAPLAIN ---
Type of Pastoral Visit _x__ Initial Visit ___ Follow-up Visit ___ On-call Visit ___ General Patient Visit ___ Spiritual Assessment ___ Family Conference ___ Bereavement ___ Rapid Response ___ Code Blue ___ Other (describe below) Pastoral Care Referral From _x__ Patient _x__ Family ___ Nurse ___ Physician ___ Cost Control Specialist ___ Wedding Coordinator ___ Other (describe below) Sacrament/Intervention _x__ Active listening ___ Anointing ___ Faith ___ Bereavement ___ Communion ___ Donna exploration ___ _x__ Life review _x__ Prayer ___ Reconciliation ___ Sacrament of Sick ___ Supportive presence ___ Wedding ___ Other (describe below) Pastoral Comments
[2021-11-03 15:00] VITALS: BP 126/76; PULSE 87; RESP 18; TEMP 36.5
[2021-11-03 21:16] VITALS: BP 130/79; PULSE 68; RESP 16; TEMP 37.1
[2021-11-04 02:21] VITALS: BP 137/86; PULSE 72; RESP 18; TEMP 36.4
[2021-11-04 11:56] VITALS: BP 128/80; PULSE 67; RESP 18; TEMP 36.7
[2021-11-04 12:08] LABS: HEPATITIS B SURFACE AG Negative (Negative); Hep C Antibodies <0.1 s/co ratio (0.0-0.9); Hepatitis A IgM Antibody Negative (Negative); Hepatitis B Core AB IgM Negative (Negative)
--- NOTE | 2021-11-04 13:25 | PCM.PN.OB ---
Subjective Subjective Patient doing well without complaints. Tolerating PO. Ambulating and voiding without difficulty. Feeding well. Denies chest pain, shortness of breath, calf pain/swelling, fevers, chills, lightheadedness. Objective Data Objective Data Vital Signs: Vital Signs Temp Pulse Resp BP Pulse Ox 98.1 F 67 18 128/80 H 97 11/04/21 11:56 11/04/21 11:56 11/04/21 11:56 11/04/21 11:56 11/02/21 01:53 Oxygen Delivery Method Room Air Weight: 172 lb 2.896 oz Body Mass Index (BMI) 24.0 Intake & Output: Intake and Output for Last 24 Hours 11/02/21 11/03/21 11/04/21 23:59 23:59 23:59 Intake Total 1812.23 / 1812.23 Output Total 1950 / 1949 Balance -137.77 / -137.77 Lab / Micro Data Result Diagrams: 11/03/21 05:40 11/03/21 05:40 Micro: Microbiology 10/30/21 Unknown Genital vaginal Group B Streptococcus Culture - Final Group B Beta Streptococcus is not isolated. 10/30/21 13:35 Urine, Clean Catch Urine Culture - Final Mixed Gram Positive Organisms 10/31/21 07:56 Nasal Secretion SARS-CoV-2 Antigen (Rapid) - Final ROS Constitutional Constitutional: Denies chills, fatigue, fever(s), poor appetite or weakness Eyes Eyes: Denies blurry vision, change in vision, seeing flashes or spots in vision ENT HEENT: Denies dizziness, headache(s), loss taste/smell or sore throat Cardiovascular Cardiovascular: Denies chest pain, dizziness, dyspnea, irregular heart rhythm, palpitations or rapid heart rate Respiratory/Chest Respiratory/Chest: Denies chest tightness, cough, dyspnea or breast pain Gastrointestinal Gastrointestinal: Denies abdominal pain, constipation or vomiting Genitourinary Genitourinary: Denies dysuria or flank pain Musculoskeletal Musculoskeletal: Denies difficulty walking, joint pain, limited range of motion or numbness Neurologic Neurologic: Denies abnormal movements, abnormal speech, dizziness, numbness, seizure-like activity or syncope Psychiatric Psychiatric: Denies anxiety, behavioral changes, change in appetite, confusion, depression or suicidal thoughts Physical Exam Const alert, oriented x3 and no apparent distress General Appearance: cooperative and comfortable Resp normal respiratory effort Cardio regular rate GI normal to inspection, nondistended, normoactive bowel sounds GI Narrative: uterus is firm below umbilicus Palpation: soft Back/Spine no CVA tenderness and thoraco-lumbar ROM normal Extremity normal to inspection, no clubbing, cyanosis or edema, no calf tenderness and no pedal edema Psych mental status grossly normal, thought process normal, cooperative, affect normal, speech normal, activity/motor behavior normal, denies homicidal ideation and denies suicidal ideation Assessment & Plan (1) Preeclampsia, severe: COMMENT: Status post Celestone 513 and 514. Elevated liver enzymes and low platelets but not in the range to diagnose hellp syndrome, recommend proceeding with induction of labor due to risks and being after 34 weeks and status post Celestone. Patient and agree to induction. Proceed with Cytotec induction of labor. We will start magnesium sulfate if develops neurologic symptoms or severely elevated blood pressures. (2) Polycystic kidney disease: COMMENT: baseline ur/pr cr ratio, cmp. asa at 14 weeks. dx at 14 yrs old- genetic- Father has it as well, discussed FOB testing if desired. Needs renal scan at 32 weeks per urology. Ordered PLAN: s/p PPD # 2 BP normal and last checked LFT's were stablizing. 1. routine post delivery care 2. breast feeding- support given 3. rh positive 4. rubella immune 5. dc to hotel status today 6. retur to office in 1 week for bp check
--- NOTE | 2021-11-08 12:41 | PCM.DC.SUM ---
Providers Date of Admission: 10/31/21 Primary Care Physician: No Primary Care Phys Reason For Visit: VAG Diagnosis Discharge Diagnosis (1) Preeclampsia, severe: Status: Acute Code(s): O14.10 - Severe pre-eclampsia, unspecified trimester (2) Polycystic kidney disease: Status: Acute Code(s): Q61.3 - Polycystic kidney, unspecified Medications at Discharge Home Medications multivitamin no.47-iron fum 27 mg-folate no.1 1 mg-dha 300 mg capsule 1 cap PO DAILY 04/29/21 ibuprofen 600 mg PO Q6H PRN 7 Days #28 tab 11/03/21 Hospital Course Operations None Procedures None Summary of Care Provided Hospital Course: To the hospital due to elevated liver enzymes and was given Celestone. Patient initially monitored and then labs were not improving and therefore the decision was made to induce at 36 weeks. Patient underwent induction of labor and delivered vaginally without complication. Post delivery she developed some right lower quadrant pain and therefore CT of the abdomen was performed and was within normal limits. Patient also had bile acids sent which were pending upon time of discharge. Patient was diagnosed with severe preeclampsia overall the blood pressures were normal to mildly elevated. Platelets were mildly lowered but never got below 135,000. Patient had also noted some itching and therefore bile acids were sent. Patient was stable for discharge to home on day 3. Weight / BMI Weight Weight: 172 lb 2.896 oz Body Mass Index (BMI) 24.0 ABG / Lab / Microbiology Data Result Diagrams: 11/03/21 05:40 11/03/21 05:40 Microbiology: Microbiology 10/30/21 Unknown Genital vaginal Group B Streptococcus Culture - Final Group B Beta Streptococcus is not isolated. 10/30/21 13:35 Urine, Clean Catch Urine Culture - Final Mixed Gram Positive Organisms 10/31/21 07:56 Nasal Secretion SARS-CoV-2 Antigen (Rapid) - Final D/C Instructions Discharge Diet: No restrictions Discharge Activity: May Not Drive (for 2 weeks or while taking narcotic pain medications.), May Shower and May Take a Tub Bath (in 7 days) May shower in (days): 0 May resume sexual activity in: 4-6 weeks Weight Bearing Status: Full weight bearing Call your doctor if your incision/area has: Continuous Slow Oozing, Sudden Increased Bleeding, Increased Pain/ Swelling, Increased Redness and Foul Smelling Discharge Call your doctor if you observe: Fever of 101 or Higher and Using more than 1 pad per hour (for 2 hours) Suture Line Care: Avoid Pulling/Pushing and Avoid Pinching/Bending Cleanse incision/area with: Soap & Water and Keep Dressing Clean & Dry Please Follow Up With: Lindsay Mancuso MD When: Call [phone] to make an appointment with your doctor in 6 weeks. If you had elevated blood pressure or 4th degree laceration, you will need to be seen in 2 weeks. Meaningful Use Info Meaningful Use Diagnoses (Choose all that apply): None applicable Discharge Plan Admission Admit Date/Time: 10/31/21 07:19 Primary Reason for Your Visit: vaginal delivery Attending Provider: Lindsay Mancuso Primary Care Provider: Care Physician,Estephania Primary Discharge Orders/Prescriptions Prescriptions: New ibuprofen 600 mg tablet 600 mg PO Q6H PRN (Reason: pain) 7 Days Qty: 28 RF: 0 Continued PNV-DHA 27 mg iron-1 mg -300 mg capsule 1 cap PO DAILY RF: 0 Referrals / Follow Up: Care Physician,No Primary [Primary Care Provider] - Disposition Disposition (needs filled in before D/C Order can be placed): Home, Self Care
--- NOTE | 2021-11-09 16:30 | CASEMGMT ---
Social Work Brief Assessment Labor and Delivery Unit Patient Address: [address] [facility], [address], [place] [address] Phone number: [phone] Referred By: Social work identification Date of Intervention: 11/09/2021 Reason for Referral: [facility], first-time parents, support and resources Informant: Medical record and mother of baby (MOB) Brie Abarca History: MOB is a 21-year-old female, to the father of baby (FOB) Prem Abarca for the last year. Parents have been together for 5 to 6 years in total. MOB denies any type of domestic or intimate partner violence. No safety concerns in the relationship. 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 The FOB works in facilities at the [employer] where MOB attends [employer]. MOB is 1, para 0-1 after delivering baby lorenzo Abarca on 11/02/2021. Delivery at 36.2 weeks gestation. weight 6 pounds 1 ounce. Apgars 8-6-8 at 1-5-2010 minutes of life respectively. transferred into the [facility] special care nursery due to prematurity and respiratory distress. MOB indicates history of some anxiety for about a month during though reports at this time today feeling okay. Denies any history of suicidal or homicidal ideation, planning, intent or attempts. Denies any drug use history. Maternal drug screens were negative on 05/10/2021 and 10/31/2021. Assessment: Met with the MOB at infant's bedside in special care nursery. MOB cooperative, calm, and pleasant, willing to speak with social worker school. MOB attended to the for the duration of social work visit, appeared to be bonding with the baby and handled the baby appropriately and gently. There have been no voiced concerns regarding parent-child interactions or bonding. MOB reports to feel mood is currently doing well, but open to discussion about mood and anxiety disorders. MOB accepted information to take home, to referencing case of need in the future. MOB reports to have good support from the FOB, as well as family. Reports to have help at home going. Reports to have all necessary supplies to care for the . No reported concerns with transportation form having basic needs met at home. Declines referral to help me grow. Information given on safe sleeping and shaken baby prevention. Plan: MOB has already been discharged as a patient but has been staying on hotel status at the hospital. Infant will discharge to the parents when medically stable. Information on mood and anxiety disorders have been provided which include emergency emergency hotlines, and support lines if needed. No further needs requested or indicated. -GLORIA Burris, JESSICA *This note was generated with [employer] dictation software. It may contain incorrect words, spelling, and punctuation that were not noted in review of the chart prior to signing*
== END 2021-11-04 15:30 | disposition home or self-care (01) | DRG 806 ==
LOC: WPOUT 07:22 → WP 07:22
PROVIDERS: Admitting Provider Obstetrics & Gynecology; Visit Provider Obstetrics & Gynecology
DX: O14.24 HELLP syndrome, complicating childbirth (principal); Z37.0 Single live birth; Q61.3 Polycystic kidney, unspecified; O60.14X0 Preterm labor third trimester with preterm delivery third trimester, not applicable or unspecified; O99.892 Other specified diseases and conditions complicating childbirth; R10.13 Epigastric pain; O70.1 Second degree perineal laceration during delivery; O69.81X0 Labor and delivery complicated by cord around neck, without compression, not applicable or unspecified; R74.8 Abnormal levels of other serum enzymes; Z3A.36 36 weeks gestation of pregnancy; Z28.310 Unvaccinated for COVID-19; Z28.21 Immunization not carried out because of patient refusal
CPT/HCPCS: 36415; 59025; 59050; 74178; 80053; 80074; 80307; 81001; 81050; 82150; 82565; 82570; 82575; 83690; 84156; 84450; 84460; 84550; 85025; 85027; 86762; 86850; 86900; 86901; 87081; 87086; 87088; 87426; 87653; 96372; 99218; J7120; Q9967; A4216; G0378; J0702

== ENCOUNTER → 2021-11-09 | Outpatient (CLI) | payer OTHER, SELFPAY ==
[2021-11-09 12:25] LABS: Absolute Lymphocyte Count 1.54 X10^3/uL (0.83-4.51); Absolute Neutrophil Count 3.6 X10^3/uL (2.0-7.7); Basophil# 0.04 X10^3/uL; Basophil% 0.7 % (0-1); Eosinophils% 1.7 % (0-5); Hematocrit 39.3 % (37-47); Hemoglobin 13.2 g/dL (12.0-15.0); Lymphocyte # 1.54 X10^3/ul (0.83-4.51); Lymphocyte % 26.1 % (19-41); Mean Corp Hgb Conc 33.6 g/dL (32-36); Mean Corpuscular Hgb 32.4 pg (27.0-32.0); Mean Corpuscular Volume 96.6 fL (81-99); Mean Platelet Vol. 10.2 fl (6.2-12.0); Monocyte# 0.61 X10^3/uL; Monocyte% 10.4 % (0-10); NRBC Flagged by Analyzer 0 % (0-5); Neutrophil # 3.59 X10^3/uL (2.7-7.7); Neutrophil % 60.9 % (47-70); Platelet Count 243 K/mm3 (150-450); RBC Distribution Width CV 11.5 % (11.6-14.6); RBC Distribution Width SD 40.7 fl (35.1-43.9); Red Blood Count 4.07 M/mm3 (4.2-5.4); White Blood Count 5.9 K/mm3 (4.4-11.0)
[2021-11-09 13:10] LABS: ALB/GLOB Ratio 0.9 RATIO (0.9-2.4); AST(SGOT) 42 U/L (15-37); Alanine Aminotransfer ALT/SGPT 119 U/L (13-56); Albumin, Serum 3.1 g/dL (3.2-5.0); Alkaline Phosphatase 107 U/L (45-117); Anion Gap 7 (5-15); BUN 17 mg/dL (7-18); BUN/Creat Ratio 29.7 RATIO (10-20); Calcium,Total 9.1 mg/dL (8.5-10.1); Chloride 107 mmol/L (98-107); Creatinine, Serum 0.57 mg/dL (0.55-1.02); EST Glomerular Filtration Rate 140 mL/min (>60); Est Glom Filt Rate - Afr Amer 169 mL/min (>60); Globulin 3.6 g/dL (2.2-4.2); Glucose 82 mg/dL (74-106); Potassium 3.9 mmol/L (3.5-5.1); Protein, Total 6.7 g/dL (6.4-8.2); Sodium Level 138 mmol/L (136-145)
== END | disposition home or self-care (01) ==
LOC: LAB 11:33
PROVIDERS: Referring Provider Obstetrics & Gynecology; Visit Provider Obstetrics & Gynecology
DX: O14.10 Severe pre-eclampsia, unspecified trimester (principal); O99.891 Other specified diseases and conditions complicating pregnancy; Q61.3 Polycystic kidney, unspecified; Z3A.00 Weeks of gestation of pregnancy not specified
CPT/HCPCS: 36415; 80053; 85025

== ENCOUNTER → 2021-12-13 | Outpatient (CLI) | payer OTHER, SELFPAY ==
[2021-12-13 15:13] LABS: Absolute Neutrophil Count 5.3 X10^3/uL (2.0-7.7); Basophil# 0.02 X10^3/uL; Basophil% 0.3 % (0-1); Eosinophil# 0.05 X10^3/uL; Eosinophils% 0.7 % (0-5); Hematocrit 41.1 % (37-47); Hemoglobin 13.9 g/dL (12.0-15.0); Lymphocyte % 15.3 % (19-41); Mean Corp Hgb Conc 33.8 g/dL (32-36); Mean Corpuscular Hgb 31.6 pg (27.0-32.0); Mean Corpuscular Volume 93.4 fL (81-99); Mean Platelet Vol. 10.4 fl (6.2-12.0); Monocyte# 0.76 X10^3/uL; Monocyte% 10.5 % (0-10); NRBC Flagged by Analyzer 0 % (0-5); Neutrophil # 5.25 X10^3/uL (2.7-7.7); Neutrophil % 72.8 % (47-70); Platelet Count 165 K/mm3 (150-450); RBC Distribution Width CV 11.2 % (11.6-14.6); RBC Distribution Width SD 38.4 fl (35.1-43.9); White Blood Count 7.2 K/mm3 (4.4-11.0)
[2021-12-13 15:46] LABS: ALB/GLOB Ratio 1.2 RATIO (0.9-2.4); AST(SGOT) 20 U/L (15-37); Alanine Aminotransfer ALT/SGPT 24 U/L (13-56); Albumin, Serum 3.8 g/dL (3.2-5.0); Alkaline Phosphatase 67 U/L (45-117); Anion Gap 5 (5-15); BUN 12 mg/dL (7-18); BUN/Creat Ratio 16.4 RATIO (10-20); Calcium,Total 8.8 mg/dL (8.5-10.1); Chloride 105 mmol/L (98-107); Creatinine, Serum 0.73 mg/dL (0.55-1.02); EST Glomerular Filtration Rate 105 mL/min (>60); Est Glom Filt Rate - Afr Amer 127 mL/min (>60); Globulin 3.3 g/dL (2.2-4.2); Glucose 95 mg/dL (74-106); Potassium 3.5 mmol/L (3.5-5.1); Protein, Total 7.1 g/dL (6.4-8.2); Sodium Level 139 mmol/L (136-145)
[2021-12-13 17:50] LABS: Protein, Urine (Random) 8.7 mg/dL (<11.9); Protein:Creat Ratio 137 mg/g CRE (0-200)
== END | disposition home or self-care (01) ==
LOC: LAB 14:10
PROVIDERS: Referring Provider Obstetrics & Gynecology; Visit Provider Obstetrics & Gynecology
DX: O14.10 Severe pre-eclampsia, unspecified trimester (principal); Z3A.00 Weeks of gestation of pregnancy not specified
CPT/HCPCS: 36415; 80053; 82570; 84156; 85025

== ENCOUNTER → 2022-07-23 | Outpatient (CLI) | payer OTHER, SELFPAY ==
[2022-07-23 11:29] LABS: Hemoglobin 13.5 g/dL (12.0-15.0); Mean Corp Hgb Conc 33.8 g/dL (32-36); Mean Corpuscular Volume 88.9 fL (81-99); Mean Platelet Vol. 9.8 fl (6.2-12.0); Platelet Count 192 K/mm3 (150-450); RBC Distribution Width CV 11.9 % (11.6-14.6); White Blood Count 5.1 K/mm3 (4.4-11.0)
[2022-07-23 11:57] LABS: Albumin, Serum 4.1 g/dL (3.2-5.0); BUN 15 mg/dL (7-18); Chloride 106 mmol/L (98-107); Creatinine, Serum 0.65 mg/dL (0.55-1.02); EST Glomerular Filtration Rate 120 mL/min (>60); Est Glom Filt Rate - Afr Amer 145 mL/min (>60); Glucose 79 mg/dL (74-106); Potassium 4.2 mmol/L (3.5-5.1); Sodium Level 141 mmol/L (136-145)
[2022-07-23 12:15] LABS: Creatinine, Urine (random) < 13.00 mg/dL (NO RANGE EST.); Microalbumin,Random Urine < 5.0 mg/L (NO RANGE EST.)
== END | disposition home or self-care (01) ==
LOC: LAB 11:00
PROVIDERS: Visit Provider Internal Medicine Nephrology
DX: N18.1 Chronic kidney disease, stage 1 (principal)
CPT/HCPCS: 36415; 80069; 82043; 82570; 83735; 85027

== ENCOUNTER → 2023-02-15 | Outpatient (CLI) | payer OTHER, SELFPAY ==
--- NOTE | 2023-02-15 15:46 | US_ITS ---
INDICATION: dating EXAMINATION: Ultrasound US OB Transvaginal TECHNIQUE: Transabdominal pelvic ultrasound was performed. Grayscale, spectral waveform, and color flow Doppler evaluation of the adnexa. COMPARISON: None. LMP: [Unknown Beta-hCG: Unknown FINDINGS: UTERUS: 8.2 x 7.5 x 4.8 cm. RIGHT OVARY: 2.6 x 2.4 x 1.6 cm. Normal vascular flow. LEFT OVARY: 4.6 x 3.5 x 2.9 cm. Within the left ovary there is a round anechoic structure consistent with simple cyst, measuring 2.6 x 2.7 x 2.9 cm. Second, slightly complex cystic structure most compatible with corpus luteum cyst seen measuring 1.7 x 2.3 x 1.7 cm. Normal vascular flow. FREE FLUID: Minimal free fluid in the cul-de-sac, nonspecific. INTRAUTERINE GESTATIONAL SAC(s) (size/shape): Single. The mean sac diameter measures 1.8 cm corresponding to 6 weeks and 5 days. Normal shape of gestational sac seen. YOLK SAC: Identified. The yolk sac measures 3.5 mm. POLE: Identified CRL 4.7 mm. ESTIMATED GESTATION AGE: 6 weeks and 3 days. HEART MOTION: 150 bpm. PLACENTA: Not visualized due to age. SUBCHORIONIC HEMORRHAGE: None. AMNIOTIC FLUID: Qualitatively normal. US/Transvaginal w/Preg US IMPRESSION: Single live intrauterine . Estimated gestational age is 6 weeks and 4 days with estimated date of delivery of 10/07/2023. Electronically Signed: Leah Avelar MD at 17:11 EDT ,
== END | disposition home or self-care (01) ==
LOC: US 15:41
PROVIDERS: Referring Provider Nurse Practitioner Women's Health; Visit Provider Nurse Practitioner Women's Health
DX: N91.2 Amenorrhea, unspecified (principal)
CPT/HCPCS: 76817

== ENCOUNTER → 2023-03-09 | Outpatient (CLI) | payer OTHER, SELFPAY ==
[2023-03-09 13:28] LABS: Protein, Urine (Random) 12.2 mg/dL (<11.9); Protein:Creat Ratio 100 mg/g CRE (0-200)
[2023-03-13 06:07] LABS: Chlamydia By Nucleic Acid AMP Negative (Negative); Gonococcus By Nucleic Acid AMP Negative (Negative)
== END | disposition home or self-care (01) ==
LOC: LABSPEC 12:58
PROVIDERS: Referring Provider Obstetrics & Gynecology; Visit Provider Obstetrics & Gynecology
DX: Z34.90 Encounter for supervision of normal pregnancy, unspecified, unspecified trimester (principal); Q61.3 Polycystic kidney, unspecified
CPT/HCPCS: 82570; 84156; 87086; 87491; 87591

== ENCOUNTER → 2023-04-06 | Outpatient (CLI) | payer OTHER, SELFPAY ==
[2023-04-06 08:08] LABS: Absolute Lymphocyte Count 1.15 X10^3/uL (0.83-4.51); Absolute Neutrophil Count 4.3 X10^3/uL (2.0-7.7); Basophil# 0.02 X10^3/uL; Basophil% 0.3 % (0-1); Eosinophil# 0.02 X10^3/uL; Eosinophils% 0.3 % (0-5); Hemoglobin 12.8 g/dL (12.0-15.0); Lymphocyte # 1.15 X10^3/ul (0.83-4.51); Lymphocyte % 19.4 % (19-41); Mean Corp Hgb Conc 32.8 g/dL (32-36); Mean Corpuscular Hgb 30.3 pg (27.0-32.0); Mean Corpuscular Volume 92.2 fL (81-99); Mean Platelet Vol. 9.4 fl (6.2-12.0); Monocyte# 0.39 X10^3/uL; Monocyte% 6.6 % (0-10); NRBC Flagged by Analyzer 0 % (0-5); Neutrophil # 4.34 X10^3/uL (2.7-7.7); Neutrophil % 73.1 % (47-70); Platelet Count 162 K/mm3 (150-450); RBC Distribution Width CV 12.7 % (11.6-14.6); RBC Distribution Width SD 42.5 fl (35.1-43.9); Red Blood Count 4.23 M/mm3 (4.2-5.4); White Blood Count 5.9 K/mm3 (4.4-11.0)
[2023-04-06 08:35] LABS: ALB/GLOB Ratio 0.9 RATIO (0.9-2.4); AST(SGOT) 14 U/L (15-37); Alanine Aminotransfer ALT/SGPT 24 U/L (13-56); Albumin, Serum 3.2 g/dL (3.2-5.0); Alkaline Phosphatase 38 U/L (45-117); Anion Gap 5 (5-15); BUN 8 mg/dL (7-18); BUN/Creat Ratio 16.3 RATIO (10-20); Calcium,Total 8.5 mg/dL (8.5-10.1); Chloride 107 mmol/L (98-107); Creatinine, Serum 0.49 mg/dL (0.55-1.02); EST Glomerular Filtration Rate 165 mL/min (>60); Est Glom Filt Rate - Afr Amer 200 mL/min (>60); Globulin 3.7 g/dL (2.2-4.2); Glucose 78 mg/dL (74-106); Potassium 3.3 mmol/L (3.5-5.1); Protein, Total 6.9 g/dL (6.4-8.2); Sodium Level 138 mmol/L (136-145)
[2023-04-06 10:02] LABS: HIV - WCH Non-Reactive (Nonreactive); Hepatitis B Surface Antigen Non-Reactive (Nonreactive); Hepatitis C Antibody Non-Reactive (Nonreactive); Rubella IgG Reactive (Nonreactive); Syphilis Antibodies Non-reactive
== END | disposition home or self-care (01) ==
LOC: LAB 07:36
PROVIDERS: Referring Provider Obstetrics & Gynecology; Visit Provider Obstetrics & Gynecology
DX: O99.891 Other specified diseases and conditions complicating pregnancy (principal); Q61.3 Polycystic kidney, unspecified; Z3A.00 Weeks of gestation of pregnancy not specified
CPT/HCPCS: 36415; 80053; 85025; 86703; 86762; 86780; 86803; 86850; 86900; 86901; 87340

== ENCOUNTER → 2023-05-08 | Outpatient (CLI) | payer OTHER, SELFPAY ==
[2023-05-08 11:30] LABS: Anion Gap 4 (5-15); BUN 9 mg/dL (7-18); BUN/Creat Ratio 18.4 RATIO (10-20); Calcium,Total 8.3 mg/dL (8.5-10.1); Chloride 108 mmol/L (98-107); Creatinine, Serum 0.49 mg/dL (0.55-1.02); EST Glomerular Filtration Rate 166 mL/min (>60); Est Glom Filt Rate - Afr Amer 201 mL/min (>60); Glucose 74 mg/dL (74-106); Potassium 3.7 mmol/L (3.5-5.1); Sodium Level 138 mmol/L (136-145)
== END | disposition home or self-care (01) ==
PROVIDERS: Obstetrics & Gynecology; Referring Provider Registered Nurse; Visit Provider Registered Nurse
DX: O23.41 Unspecified infection of urinary tract in pregnancy, first trimester (principal); O99.281 Endocrine, nutritional and metabolic diseases complicating pregnancy, first trimester; E87.6 Hypokalemia; Z3A.13 13 weeks gestation of pregnancy
CPT/HCPCS: 36415; 80048; 87086

== ENCOUNTER 2023-06-25 20:00 | Emergency (ER) | payer OTHER, SELFPAY ==
[2023-06-25 20:01] VITALS: BP 135/88; PULSE 83; RESP 18; TEMP 36.4; O2SAT 100; BMI 21.4
--- NOTE | 2023-06-25 20:13 | EDS_ITS ---
HPI HPI - GI History of Present Illness Chief Complaint: Abd Pain Detail of Chief Complaint: Upper abdominal pain. Informant: patient Abdominal Pain/Flank Pain Onset: Today and Hours Context: Gradual Onset Timing: Intermittent Quality: Aching Location: Epigastric Current Severity: Gone Maximum Severity: Moderate Worsened by: Nothing Relieved by: Nothing Nausea/Vomiting/Emesis GI Symptom: Negative for Nausea or Vomiting Diarrhea/Melena/Hematochezia GI Symptom: Negative for Diarrhea, Melena or Hematochezia Associated Symptoms Associated Symptoms: Negative for Dysuria, Frequency, Hematuria or Urgency Narrative Narrative: 22-year-old female is . Ab0. Due date October 07, 2023. Been doing well no problems with the . Ultrasound showed a single live IUP. She has had no vaginal bleeding. No lower abdominal pain. No fever. No dysuria. States today around 2:30 PM had some intermittent upper abdominal pain worsened around 6:30 PM. She said currently it is much improved. Mild nausea. No vomiting or diarrhea. No dysuria. No fever. No vaginal bleeding. No prior abdominal surgeries. Prior similar symptoms: No Recent Illness/Hospitalization: No PFSH PFSH Medical History Cholestasis during Depression Polycystic kidney disease Pre-eclampsia Preeclampsia, severe Vaginal delivery Home Medications multivitamin no.47-iron fum 27 mg-folate no.1 1 mg-dha 300 mg capsule (PNV-DHA) cap PO 02/23/23 [History Last Taken Unknown] Allergy/AdvReac Type Severity Reaction Status Date / Time No Known Allergies Allergy Verified 06/25/23 20:01 Family History Grandmother Diabetes maternal Heart disease maternal Grandfather Diabetes maternal Heart disease maternal Other Hypertension Polycystic kidney disease Surgical History H/O left wrist surgery [place] teeth extracted Social History adopted: No household members: spouse and children number of children: 1 current occupational status: employed 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 [employer] 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) pets and animals: cat(s) history of recent travel: No sexually active: Yes Smoking Status: Never smoker second hand exposure: No alcohol intake: never substance use type: does not use well-balanced diet: daily or most days caffeine: No eating out: 1-3 times/week during the past year weight has: remained stable what type of physical activity do you participate in: walking frequency: 3-4 times per week duration: 15-30 minutes/day macho/mandaen: None seatbelt use: always do you feel safe at home: Yes 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 Mild nausea. Review of Systems ROS Unobtainable: Denies due to encephalopathy Constitutional Constitutional ED: Denies chills or fever(s) ENT ENT ED: Denies ear pain Cardiovascular Cardiovascular: Denies chest pain Respiratory/Chest Respiratory/Chest: Denies cough or dyspnea Gastrointestinal Gastrointestinal: Reports abdominal pain and nausea; Denies constipation, diarrhea, melena or vomiting Genitourinary Genitourinary ED: Denies dysuria or hematuria Musculoskeletal Musculoskeletal: Denies arthralgias Integumentary Denies abscess Neurologic Neurologic: Denies headache(s) Psychiatric Psychiatric: Denies anxiety Endocrine Endocrinology: Denies polydipsia Hematologic/Lymphatic Hematologic/Lymphatic: Denies easy bleeding Allergic/Immunologic Allergic/Immunologic ED: Denies mouth swelling EXAM Physical Exam Narrative Exam Narrative: Well-appearing 22-year-old female. Vital signs stable afebrile. Significant other at bedside. H EENT exam unremarkable. Neck nontender no JVD. No lymphadenopathy. Lungs clear to auscultation bilaterally. Heart regular rhythm rate about 80 no murmur. Chest wall and ribs nontender. Back nontender. Abdomen gravid nontender uterus. Abdomen currently is completely nontender. There is no epigastric or right upper quadrant tenderness. There is absolutely no lower abdominal or right lower quadrant tenderness. No hernia or mass. No obstruction. Soft. Positive bowel sounds. Moving all 4 extremities. Nontender no edema. She is awake and alert. No focal motor deficits. Const Vital Signs: 06/25/23 20:01 Temperature 97.6 F L Temperature Source Temporal Pulse Rate 83 Respiratory Rate 18 Blood Pressure 135/88 H Blood Pressure Mean 103 Pulse Ox 100 Oxygen Delivery Method Room Air Positive well nourished and well developed; Negative for obese, cachectic, contractures or unkempt General Appearance ED: well developed and NAD; Negative for unkempt, cachectic, contractures or pallor Nutritional Appearance: Negative for cachectic or obese HEENT Reports moist mucous membranes normocephalic and atraumatic; Negative for trauma or tenderness Eyes PERRL and EOMs intact bilaterally General Eye ED: Negative for pale conjunctiva or scleral icterus Neck no lymphadenopathy, supple and no JVD General: Negative for tenderness Carotids: Negative for other Lymph Lymphatic: Negative for other Resp normal respiratory effort and clear to auscultation bilaterally Effort and Inspection: Negative for respiratory distress Auscultation: Negative for rales, rhonchi or wheezes Cardio regular rate, regular rhythm, S1 normal heart sound, S2 normal heart sound and no murmurs Rate: Negative for bradycardia or tachycardic Rhythm: Negative for abnormal rhythm GI non-tender, non-distended and no masses GI Narrative: Soft. Nontender abdomen. Gravid nontender uterus. No tenderness whatsoever. No apparent no signs. No right upper or right lower quadrant tenderness. No hernia or mass. No distention. Inspection: Negative for abdominal distention Auscultation: normoactive bowel sounds Palpation: soft; Negative for tender, guarding, rigid, hernia, mass or rebound tenderness present Back/Spine no CVA tenderness General Back: Negative for CVA tenderness Cervical Spine: Negative for cervical spine tenderness Thoracic Spine / Upper Back: Negative for thoracic spinal tenderness Lumbar Spine / Lower Back: Negative for lumbar spinal tenderness Coccyx: Negative for other Extremity full ROM General Extremety ED: Negative for edema or tenderness General Extremity: Negative for edema Neuro CN's II-XII intact bilaterally and moves all extremities Sensorium / Orientation: alert, oriented to person, oriented to place and oriented to time; Negative for orientation impaired, confused or lethargic Motor Exam: strength 5/5 throughout Psych mental status grossly normal and thought process normal Appearance: Negative for unkempt Attitude: No agitated Mood & Affect: Negative for depressed, anxious or tearful Skin no wounds General Skin Exam: Negative for jaundice or pallor Lesions: no lesions Rashes: no rashes Trauma: Negative for abrasion Nails: Negative for discolored MDM MDM MDM Narrative Medical decision making narrative: 22-year-old female upper abdominal pain resolved. Currently 25 weeks . Screening labs. heart tones. I do not think she needs any imaging at this time she has no pain. Differential would include gastritis, reflux, indigestion, pancreatitis which I do not think this is or gallbladder disease. Clinically there is no signs of appendicitis. She is having no urinary symptoms any lower abdominal pain. I do not think it specifically related to the fetus because she is having no uterine pain or vaginal bleeding. Repeat exam patient is doing well at 9:20 PM. She is having no abdominal pain whatsoever. Repeat abdominal exam is completely benign and nontender. There is no right upper or lower quadrant tenderness. No distention. She is resting comfortably. Patient doing well at 9:35 PM. Will be discharged home with outpatient follow- up. History & Record Review Discussion w/independent historian: Patient Additional record(s) reviewed:: Prior inpatient record, Prior outpatient record, Prior ED visit and Prior labs Lab Data Attestation: I reviewed the patient's lab results. Lab results narrative: CBC shows normal white count 8. H&H of 11.0 and 33. Platelets 160. CMP shows anion gap of 4. BUN and creatinine 9 and 0.5. Liver enzymes unremarkable. Lipase normal at 56. heart tones are 160 per nurse. Labs: Laboratory Results - last 24 hr 06/25/23 20:47 WBC 8.2 RBC 3.49 L Hgb 11.0 L Hct 33.1 L MCV 94.8 MCH 31.5 MCHC 33.2 RDW Std Deviation 43.8 RDW Coeff of Jerry 12.7 Plt Count 160 MPV 10.1 Immature Gran % (Auto) 0.200 Neut % (Auto) 67.7 Lymph % (Auto) 22.5 [place] % (Auto) 8.3 Eos % (Auto) 0.9 Baso % (Auto) 0.4 Absolute Neuts (auto) 5.6 Absolute Lymphs (auto) 1.85 Nucleated RBC % 0 Sodium 142 Potassium 3.6 Chloride 111 H Carbon Dioxide 27.0 Anion Gap 4 L BUN 9 Creatinine 0.52 L Estim Creat Clear Calc 185.07 Est GFR (MDRD) Af Amer 188 Est GFR (MDRD) Non-Af 155 BUN/Creatinine Ratio 17.4 Glucose 89 Calcium 8.9 Total Bilirubin 0.20 AST 16 ALT 16 Alkaline Phosphatase 44 L Total Protein 6.1 L Albumin 2.9 L Globulin 3.2 Albumin/Globulin Ratio 0.9 Lipase 56 Discharge Plan Triage Chief Complaint: Abd Pain ED Provider: Juan Woods Dx/Rx/DC Orders Clinical Impression: Second trimester , Abdominal pain Instructions: Abdominal Pain Prescriptions: No Action PNV-DHA 27 mg iron-1 mg -300 mg capsule PO Primary Care Provider: Care Physician,No Primary Referrals: Lindsay Mancuso MD [Med Staff - Active Staff] - As Needed Care Physician,No Primary [Primary Care Provider] - Activity Restrictions/Additional Instructions: Abdominal pain of uncertain cause. May or may not be secondary to your gallbladder. Your labs are unremarkable. heart tones were good. Tylenol for any pain. If increasing pain fever or intractable vomiting either follow-up with us or your OB. If you have recurrent pain they need to get an ultrasound your gallbladder. Disposition Disposition: Home, Self Care
--- OUTSIDE RECORDS SUMMARY | 2023-06-25 20:34 | XMS RPT_ITS | CCD ---
Author Name Unknown Address [facility] [address] [place] [address] Organization [facility] Care Team Providers Care Tong Carrier Name Role Phone DEMETRICE ISAACS Admitting Unavailable DEMETRICE ISAACS Consulting Unavailable DEMETRICE ISAACS Attending Unavailable LIYA AVITIA~[phone], LIYA DALTON Prima ry Care Unavailable DEMETRICE ISAACS Consulting Unavailable LIYA AVITIA, RACHAIVel Consulting Unavailab isabel NICKERSON APRN, RACHAIL Consulting Unavailab DEMETRICE Vela Consulting Unavailable DEMETRICE ISAACS Attending Unavailable LIYA CORE BLOWER~[phone], LIYA DALTON Prima ry Care Unavailable DEMETRICE ISAACS Admitting Unavailable DEMETRICE ISAACS Consulting Unavailable NURY BYRNES Consulting Unavailable NURY BYRNES Consulting Unavailable LIYA AVITIA, RACHAIL Consulting Unavailab isabel NICKERSON APRN, RACHAIL Consulting Unavailab DENITA Johnson Primary Care Unavailable NURY BYRNES E Referring UnavailMODESTA Gallardo Attending Unavailable Problems Problem Classification Problem Date Documented Da te Episodic/Chronic Genitourinary congenital anomalies (3 sources) Polycystic kidney, adult type; Translations: [POLYCYSTIC KIDNEY ADULT TYPE] Onset: 02-01-2023 Chronic Menstrual disorders (3 sources) Amenorrhea, unspecified; Translations: [AMENORRHEA UNSPECIFIED] Onset: 02-07-2023 Chronic Results Test Name Value Interpretation Reference Range Facil ity Encounters Encounter Date Encounter Type Care Provider Facility Start: 05-18-2023 End: 05-18-2023 ambulatory DENITA DE LEON [facility] Start: 02-07-2023 End: 02-08-2023 ambulatory DEMETRICE ISAACS Facility:[facility] Start: 02-01-2023 End: 02-02-2023 ambulatory DEMETRICE ISAACS Facility:[facility] Payers Date Payer Category Payer Unknown [id number] 2.16.8 [id number] 1999 Unknown [id number] 2.16.8 [id number] 1999 Unknown [id number] 2.16. [id number] 1959 Unknown [id number] Progress note 06-19-2021 Note Date & Type Note Facility 06-19-2021 Note HNO ID: [id number] Author: Gus Hardin MD Service: ? Author Type: Physician Type: Progress Notes Filed: 06/19/2021 3:52 PM Note Text: Patient presents with: Sinus Problem: sinus pressure and pain, LOVE, congestion x2 weeks HPI: Feeling sick for starting a couple weeks ago. Most of her symptoms improved, but she continues to get headaches. Pain is mostly occipital. Occurs more in the evening. Positive symptoms: Headache, ears feel plugged, Post nasal drainage, Negative symptoms: resolved Sinus pressure, Nasal Congestion, Rhinorrhea, Malaise; Cough, Vomiting, Diarrhea, nausea. OTC: none. had COVID last month. Multiple COVID tests for her were negative. Has not had COVID-19 vaccine. Had COVID illness last fall. Currently 17wk . PAST MEDICAL HISTORY Diagnosis Date - Chronic seasonal allergic rhinitis 03/27/2017 - Other infectious mononucleosis without complication 12/31/2016 - Polycystic kidney disease 03/25/2016 [facility] MEDICATIONS: Current Outpatient Medications Medication Sig - PNV no.95/ferrous fum/folic ac ( ORAL) Take 1 tablet by mouth. No current facility-administered medications for this visit. ALLERGIES: ALLERGIES No Known Allergies VITALS: BP 128/84 Pulse 88 Temp 37.1 ?C (98.8 ?F) Resp 16 Wt 67.3 kg (148 lb 6.4 oz) LMP 06/30/2014 SpO2 98% PHYSICAL EXAM: GEN: mildly ill appearing HEENT: PERRL, EOMI, left eye slight upward alignment compared to right, conjunctiva clear Ears: canals clear. TMs without erythema, bulge, or effusion Sinuses: non-tender frontal sinus, non-tender maxillary sinuses Throat: moist mucous membranes, no erythema, no exudate Neck: supple, no thyromegaly, no lymphadenopathy HEART: regular rate and rhythm, no murmurs LUNGS: clear to auscultation, no wheezes or crackles, no increased WOB ABD: Soft, non-distended, non-tender, fundus below the umbilicus NEURO: Alert and oriented to person, place, and time. CN II-XII intact. DTR 1+/4. Normal strength. Normal gait. No tremor. ASSESSMENT/PLAN: 1. Headache, unspecified headache type - ICD9: 784.0, ICD10: R51.9 Probably tension type headache. This is the typical location for her headaches; they may be effected by state. Treat with relaxation, acetaminophen, ice/heat, and exercise. Follow up with PCP or VENDOR QUALITY SUPERVISOR. Seek evaluation for worsening headache, worsening dizziness, worsening nausea, vision change, numbness, weakness, or speech difficulty. Gus Hardin MD [facility] Summary Purpose Family History No Family History Records FoundNo Family History Records FoundNo Family History Records Found Advance Directives No Advanced Directives Records FoundNo Advanced Directives Records FoundNo Advanced Directives Records Found Additional Source Comments INFORMATION SOURCE (unrecogn ized section and content) DATE CREATED AUTHOR AUTHOR'S ORGANIZ ATION 02/10/2023 [facility] DATE CREATED AUTHOR AUTHOR'S ORGANIZ ATION 05/20/2023 [facility] FOR RECORDS PERTAINING TO PATIENTS WHO ARE OR HAVE BEEN ENROLLED IN A CHEMICAL DEPENDENCY/SUBSTANCEABUSE PROGRAM, SOME INFORMATION MAY BE OMITTED. This clinical summary was aggregated from multiple sources. Caution should be exercised in using it in the provision of clinical care. This summary normalizes information from multiple sources, and as a consequence, information in this document may materially change the coding, format and clinical context of patient data. In addition, data may be omitted in some cases. CLINICAL DECISIONS SHOULD BE BASED ON THE PRIMARY CLINICAL RECORDS. [employer] [facility]. provides no warranty or guarantee of the accuracy or completeness of information in this document.
[2023-06-25 21:09] LABS: ALB/GLOB Ratio 0.9 RATIO (0.9-2.4); AST(SGOT) 16 U/L (15-37); Alanine Aminotransfer ALT/SGPT 16 U/L (13-56); Albumin, Serum 2.9 g/dL (3.2-5.0); Alkaline Phosphatase 44 U/L (45-117); Anion Gap 4 (5-15); BUN 9 mg/dL (7-18); BUN/Creat Ratio 17.4 RATIO (10-20); Calcium,Total 8.9 mg/dL (8.5-10.1); Chloride 111 mmol/L (98-107); Creatinine, Serum 0.52 mg/dL (0.55-1.02); EST Glomerular Filtration Rate 155 mL/min (>60); Est Glom Filt Rate - Afr Amer 188 mL/min (>60); Estimated Creatinine Clearance 185.07 ml/min; Globulin 3.2 g/dL (2.2-4.2); Glucose 89 mg/dL (74-106); Lipase 56 U/L (13-75); Potassium 3.6 mmol/L (3.5-5.1); Protein, Total 6.1 g/dL (6.4-8.2); Sodium Level 142 mmol/L (136-145)
[2023-06-25 21:34] LABS: Absolute Lymphocyte Count 1.85 X10^3/uL (0.83-4.51); Absolute Neutrophil Count 5.6 X10^3/uL (2.0-7.7); Basophil# 0.03 X10^3/uL; Basophil% 0.4 % (0-1); Eosinophil# 0.07 X10^3/uL; Eosinophils% 0.9 % (0-5); Hematocrit 33.1 % (37-47); Lymphocyte # 1.85 X10^3/ul (0.83-4.51); Lymphocyte % 22.5 % (19-41); Mean Corp Hgb Conc 33.2 g/dL (32-36); Mean Corpuscular Hgb 31.5 pg (27.0-32.0); Mean Corpuscular Volume 94.8 fL (81-99); Mean Platelet Vol. 10.1 fl (6.2-12.0); Monocyte# 0.68 X10^3/uL; Monocyte% 8.3 % (0-10); NRBC Flagged by Analyzer 0 % (0-5); Neutrophil # 5.58 X10^3/uL (2.7-7.7); Neutrophil % 67.7 % (47-70); Platelet Count 160 K/mm3 (150-450); RBC Distribution Width CV 12.7 % (11.6-14.6); RBC Distribution Width SD 43.8 fl (35.1-43.9); Red Blood Count 3.49 M/mm3 (4.2-5.4); White Blood Count 8.2 K/mm3 (4.4-11.0)
[2023-06-25 22:00] VITALS: PULSE 74; RESP 17; O2SAT 98
== END 2023-06-25 22:01 | disposition home or self-care (01) ==
PROVIDERS: Emergency Provider Emergency Medicine; Visit Provider Emergency Medicine
DX: O99.891 Other specified diseases and conditions complicating pregnancy (principal); R10.13 Epigastric pain; Z3A.25 25 weeks gestation of pregnancy
CPT/HCPCS: 80053; 83690; 85025; 99282

== ENCOUNTER → 2023-06-26 | Outpatient (CLI) | payer OTHER, SELFPAY | END | disposition home or self-care (01) | PROVIDERS: Referring Provider Nurse Practitioner Women's Health; Visit Provider Nurse Practitioner Women's Health | DX: O26.899 Other specified pregnancy related conditions, unspecified trimester (principal); R10.9 Unspecified abdominal pain; Z3A.00 Weeks of gestation of pregnancy not specified | CPT/HCPCS: 36415 ==

== ENCOUNTER → 2023-07-06 | Outpatient (CLI) | payer OTHER, SELFPAY ==
--- OUTSIDE RECORDS SUMMARY | 2023-07-06 09:42 | XMS RPT_ITS | CCD ---
Author Name Unknown Address [facility] [address] [place] [address] Organization [facility] Care Team Providers Care Senior Oracle Database Administrator Name Role Phone DEMETRICE ISAACS Admitting Unavailable DEMETRICE ISAACS Consulting Unavailable DEMETRICE ISAACS Attending Unavailable LIYA AVITIA~[phone], LIYA DALTON Prima ry Care Unavailable DEMETRICE ISAACS Consulting Unavailable LIYA AVITIA, RACHAIVel Consulting Unavailab isabel NICKERSON APRN, RACHAIL Consulting Unavailab DEMETRICE Vela Consulting Unavailable DEMETRICE ISAACS Attending Unavailable LIYA STORAGE BATTERY TESTER~[phone], LIYA DALTON Prima ry Care Unavailable DEMETRICE [...] 05-18-2023 End: 05-18-2023 ambulatory DENITA DE LEON [facility] Start: 02-07-2023 End: 02-08-2023 ambulatory DEMETRICE ISAACS Facility:[facility] Start: 02-01-2023 End: 02-02-2023 ambulatory DEMETRICE ISAACS Facility:[facility] Payers Date Payer Category Payer Unknown [id number] 2.16.8 [id number] 1999 Unknown [id number] 2.16.8 [id number] 1999 Unknown [id number] 2.16. [id number] 1959 Unknown [id number] Progress note 06-19-2021 Note Date & Type Note Facility 06-19-2021 Note HNO ID: [id number] Author: Gus Hardin MD Service: ? Author [...] and exercise. Follow up with PCP or ANALYSIS OR RESEARCH SAFETY INSPECTOR. Seek evaluation for worsening headache, worsening dizziness, worsening nausea, vision change, numbness, weakness, or speech difficulty. Gus Hardin MD [facility] Summary Purpose Family History No Family History Records FoundNo Family History Records FoundNo Family History Records Found Advance Directives No Advanced Directives Records FoundNo Advanced Directives Records FoundNo Advanced Directives Records Found Additional Source Comments INFORMATION SOURCE (unrecogn ized section and content) DATE CREATED AUTHOR AUTHOR'S ORGANIZ ATION 02/10/2023 [facility] DATE CREATED AUTHOR AUTHOR'S ORGANIZ ATION 05/20/2023 [facility] FOR RECORDS PERTAINING TO PATIENTS WHO ARE [...] BE BASED ON THE PRIMARY CLINICAL RECORDS. [facility]. provides no warranty or guarantee of the accuracy or completeness of information in this document.
[2023-07-06 10:12] LABS: Absolute Lymphocyte Count 1.05 X10^3/uL (0.83-4.51); Absolute Neutrophil Count 4.2 X10^3/uL (2.0-7.7); Basophil# 0.02 X10^3/uL; Basophil% 0.3 % (0-1); Eosinophil# 0.03 X10^3/uL; Eosinophils% 0.5 % (0-5); Hematocrit 34.8 % (37-47); Lymphocyte # 1.05 X10^3/ul (0.83-4.51); Lymphocyte % 18.2 % (19-41); Mean Corp Hgb Conc 34.5 g/dL (32-36); Mean Corpuscular Hgb 32.5 pg (27.0-32.0); Mean Corpuscular Volume 94.3 fL (81-99); Mean Platelet Vol. 10.1 fl (6.2-12.0); Monocyte# 0.47 X10^3/uL; Monocyte% 8.2 % (0-10); NRBC Flagged by Analyzer 0 % (0-5); Neutrophil # 4.18 X10^3/uL (2.7-7.7); Neutrophil % 72.6 % (47-70); Platelet Count 153 K/mm3 (150-450); RBC Distribution Width CV 12.8 % (11.6-14.6); RBC Distribution Width SD 43.9 fl (35.1-43.9); Red Blood Count 3.69 M/mm3 (4.2-5.4); White Blood Count 5.8 K/mm3 (4.4-11.0)
[2023-07-06 10:36] LABS: Glucose Challenge Gest 1H 50g 92 mg/dL (70-140)
[2023-07-06 11:07] LABS: HIV - WCH Non-Reactive (Nonreactive); Syphilis Antibodies Non-reactive
== END | disposition home or self-care (01) ==
PROVIDERS: Referring Provider Obstetrics & Gynecology; Visit Provider Obstetrics & Gynecology
DX: O09.90 Supervision of high risk pregnancy, unspecified, unspecified trimester (principal); Z3A.00 Weeks of gestation of pregnancy not specified
CPT/HCPCS: 36415; 82950; 85025; 86703; 86780

== ENCOUNTER → 2023-08-16 | Outpatient (CLI) | payer OTHER, SELFPAY ==
[2023-08-16 13:19] LABS: Hematocrit 35.6 % (37-47); Mean Corp Hgb Conc 33.7 g/dL (32-36); Mean Corpuscular Hgb 32.5 pg (27.0-32.0); Mean Corpuscular Volume 96.5 fL (81-99); Mean Platelet Vol. 10.7 fl (6.2-12.0); Platelet Count 155 K/mm3 (150-450); RBC Distribution Width CV 12.5 % (11.6-14.6); RBC Distribution Width SD 43.8 fl (35.1-43.9); Red Blood Count 3.69 M/mm3 (4.2-5.4); White Blood Count 8.6 K/mm3 (4.4-11.0)
[2023-08-16 13:28] LABS: Protein, Urine (Random) < 6.0 mg/dL (<11.9)
[2023-08-16 13:48] LABS: PTHIN 9.4 pg/mL (18.4-80.1)
[2023-08-16 13:49] LABS: Albumin, Serum 2.7 g/dL (3.2-5.0); BUN 8 mg/dL (7-18); BUN/Creat Ratio 17.2 RATIO (10-20); Calcium,Total 8.7 mg/dL (8.5-10.1); Chloride 109 mmol/L (98-107); Creatinine, Serum 0.46 mg/dL (0.55-1.02); EST Glomerular Filtration Rate 176 mL/min (>60); Est Glom Filt Rate - Afr Amer 212 mL/min (>60); Glucose 77 mg/dL (74-106); Potassium 3.5 mmol/L (3.5-5.1); Sodium Level 138 mmol/L (136-145)
[2023-08-16 13:52] LABS: Vitamin D,25 Hydroxy 34.7 ng/mL
== END | disposition home or self-care (01) ==
DX: N18.1 Chronic kidney disease, stage 1 (principal)
CPT/HCPCS: 36415; 80069; 82306; 82570; 83970; 84156; 85027

== ENCOUNTER 2023-08-29 11:22 | Outpatient (CLI) | payer OTHER, SELFPAY ==
[2023-08-29] VITALS (12 sets, daily range): BP systolic 108–143; BP diastolic 59–87; PULSE 70–98; RESP 16; TEMP 37.3; O2SAT 96–100
[2023-08-29] MEDS: Acetaminophen 500 MG Tablet 1000 MG PO (12:00)
--- NOTE | 2023-08-29 15:27 | NURSING ---
1355: Shelley discussed pre-e lab results, BP trends, and LOVE resolved w/ tylenol and epigastric pain intermittently. agrees with dc to home. Pt was sent from office prior to coming to OB unit so does not need to be reevaluated by provider prior to dc, pt has no new symptoms since OB visit with .
[2023-08-29 17:02] LABS: Protein, Urine (Random) 7.8 mg/dL (<11.9); Protein:Creat Ratio 288 mg/g CRE (0-200)
[2023-08-29 17:10] LABS: Hematocrit 32.8 % (37-47); Hemoglobin 11.2 g/dL (12.0-15.0); Mean Corp Hgb Conc 34.1 g/dL (32-36); Mean Corpuscular Volume 93.7 fL (81-99); Mean Platelet Vol. 10.2 fl (6.2-12.0); Platelet Count 154 K/mm3 (150-450); RBC Distribution Width CV 12.3 % (11.6-14.6); RBC Distribution Width SD 42.3 fl (35.1-43.9); White Blood Count 7.9 K/mm3 (4.4-11.0)
[2023-08-29 17:20] LABS: AST(SGOT) 26 U/L (15-37); Alanine Aminotransfer ALT/SGPT 27 U/L (13-56); Creatinine, Serum 0.45 mg/dL (0.55-1.02); EST Glomerular Filtration Rate 183 mL/min (>60); Est Glom Filt Rate - Afr Amer 221 mL/min (>60); Uric Acid 3.5 mg/dL (2.6-6.0)
[2023-08-29 17:33] LABS: LDH 180 U/L (84-246)
--- NOTE | 2023-10-03 06:20 | OB.TRI.PN_ITS ---
Progress Notes Date of Service: 08/29/23 Progress Note: Patient presents for triage evaluation secondary to elevate dbps FHT: 140 Moderate variability reactive no decelerations category I tracing [place]: no regular Contractions Assessment and plan: elevated bps initially repeat WNL Reactive NST, reassuring maternal and status patient discharged to home to follow-up as scheduled. See problem list details for additional plan information. Laboratory Studies: Laboratory Tests 08/29/23 08/29/23 Range/Units 13:23 11:55 WBC 7.9 (4.4-11.0) K/mm3 RBC 3.50 L (4.2-5.4) M/mm3 Hgb 11.2 L (12.0-15.0) g/dL Hct 32.8 L (37-47) % MCV 93.7 (81-99) fL MCH 32.0 (27.0-32.0) pg MCHC 34.1 (32-36) g/dL RDW Std Deviation 42.3 (35.1-43.9) fl RDW Coeff of Jerry 12.3 (11.6-14.6) % Plt Count 154 (150-450) K/mm3 MPV 10.2 (6.2-12.0) fl Creatinine 0.45 L (0.55-1.02) mg/dL Est GFR (MDRD) Af Amer 221 (>60) mL/min Est GFR (MDRD) Non-Af 183 (>60) mL/min Uric Acid 3.5 (2.6-6.0) mg/dL AST 26 (15-37) U/L ALT 27 (13-56) U/L Lactate Dehydrogenase 180 (84-246) U/L U Random Total Protein 7.8 (<11.9) mg/dL Urine Creatinine 27.10 (NO RANGE EST.) mg/dL Protein/Creatinin Ratio 288 H (0-200) mg/g CRE Charges/Coding Procedures Urinary/Genital 52xxx-59xxx: 80840-93 non-stress test Interp
== END 2023-08-29 14:10 | disposition home or self-care (01) ==
LOC: WPOUT 11:27 → WP 11:27
PROVIDERS: Obstetrics & Gynecology; Referring Provider Advanced Practice Midwife; Visit Provider Advanced Practice Midwife
DX: O13.3 Gestational [pregnancy-induced] hypertension without significant proteinuria, third trimester (principal); O26.613 Liver and biliary tract disorders in pregnancy, third trimester; K83.1 Obstruction of bile duct; O09.93 Supervision of high risk pregnancy, unspecified, third trimester; O99.891 Other specified diseases and conditions complicating pregnancy; Q61.3 Polycystic kidney, unspecified; Z3A.34 34 weeks gestation of pregnancy; Z87.59 Personal history of other complications of pregnancy, childbirth and the puerperium
CPT/HCPCS: 59025; 59050; 82565; 82570; 83615; 84156; 84450; 84460; 84550; 85027; 99221; G0378

== ENCOUNTER → 2023-08-31 | Outpatient (CLI) | payer OTHER, SELFPAY ==
[2023-08-31 17:03] LABS: Absolute Lymphocyte Count 1.76 X10^3/uL (0.83-4.51); Absolute Neutrophil Count 5.9 X10^3/uL (2.0-7.7); Basophil# 0.03 X10^3/uL; Basophil% 0.3 % (0-1); Eosinophil# 0.08 X10^3/uL; Eosinophils% 0.9 % (0-5); Hematocrit 34.5 % (37-47); Hemoglobin 11.6 g/dL (12.0-15.0); Lymphocyte # 1.76 X10^3/ul (0.83-4.51); Lymphocyte % 20.4 % (19-41); Mean Corp Hgb Conc 33.6 g/dL (32-36); Mean Corpuscular Hgb 31.4 pg (27.0-32.0); Mean Corpuscular Volume 93.5 fL (81-99); Mean Platelet Vol. 10.2 fl (6.2-12.0); Monocyte# 0.81 X10^3/uL; Monocyte% 9.4 % (0-10); NRBC Flagged by Analyzer 0 % (0-5); Neutrophil # 5.89 X10^3/uL (2.7-7.7); Neutrophil % 68.5 % (47-70); Platelet Count 170 K/mm3 (150-450); RBC Distribution Width CV 12.4 % (11.6-14.6); RBC Distribution Width SD 42.5 fl (35.1-43.9); Red Blood Count 3.69 M/mm3 (4.2-5.4); White Blood Count 8.6 K/mm3 (4.4-11.0)
[2023-08-31 17:20] LABS: ALB/GLOB Ratio 0.8 RATIO (0.9-2.4); AST(SGOT) 28 U/L (15-37); Alanine Aminotransfer ALT/SGPT 31 U/L (13-56); Albumin, Serum 2.8 g/dL (3.2-5.0); Alkaline Phosphatase 107 U/L (45-117); Anion Gap 6 (5-15); BUN 7 mg/dL (7-18); BUN/Creat Ratio 13.9 RATIO (10-20); Calcium,Total 9.2 mg/dL (8.5-10.1); Chloride 110 mmol/L (98-107); EST Glomerular Filtration Rate 160 mL/min (>60); Est Glom Filt Rate - Afr Amer 193 mL/min (>60); Globulin 3.7 g/dL (2.2-4.2); Glucose 85 mg/dL (74-106); Potassium 3.5 mmol/L (3.5-5.1); Protein, Total 6.5 g/dL (6.4-8.2); Sodium Level 139 mmol/L (136-145)
--- OUTSIDE RECORDS SUMMARY | 2023-08-31 21:47 | XMS RPT_ITS | CCD ---
Author Name Unknown Address [facility] [address] [place] [address] Organization [facility] Care Team Providers Care Boat Cleaning Supervisor Name Role Phone DEMETRICE ISAACS Admitting Unavailable DEMETRICE ISAACS Consulting Unavailable DEMETRICE ISAACS Attending Unavailable LIYA AVITIA~[phone], ILYA DALTON Prima ry Care Unavailable DEMETRICE ISAACS Consulting Unavailable LIYA AVITIA, RACHAIVel Consulting Unavailab isabel NICKERSON APRN, RACHAIL Consulting Unavailab DEMETRICE Vela Consulting Unavailable DEMETRICE ISAACS Attending Unavailable LIYA HVAC SERVICE TECH~[phone], LIYA DALTON Prima ry Care Unavailable DEMETRICE [...] 05-18-2023 End: 05-18-2023 ambulatory DENITA DE LEON [facility] Start: 02-07-2023 End: 02-08-2023 ambulatory DEMETRICE ISAACS Facility[facility] Start: 02-01-2023 End: 02-02-2023 ambulatory DEMETRICE ISAACS Facility:[facility] Payers Date Payer Category Payer Unknown [id number] 2.16.8 [id number] 1999 Unknown [id number] 2.16.8 [id number] 1999 Unknown [id number] 2.16. [id number] 1959 Unknown [id number] Progress note 06-19-2021 Note Date & Type Note Facility 06-19-2021 Note HNO ID: [id number] Author: Gus Hardin MD Service: ? Author [...] and exercise. Follow up with PCP or STUDIO ARTIST. Seek evaluation for worsening headache, worsening dizziness, worsening nausea, vision change, numbness, weakness, or speech difficulty. Gus Hardin MD [facility] Summary Purpose Family History No Family History Records FoundNo Family History Records FoundNo Family History Records Found Advance Directives No Advanced Directives Records FoundNo Advanced Directives Records FoundNo Advanced Directives Records Found Additional Source Comments INFORMATION SOURCE (unrecogn ized section and content) DATE CREATED AUTHOR AUTHOR'S ORGANIZ ATION 02/10/2023 [facility] DATE CREATED AUTHOR AUTHOR'S ORGANIZ ATION 05/20/2023 [facility] FOR RECORDS PERTAINING TO PATIENTS WHO [...] BE BASED ON THE PRIMARY CLINICAL RECORDS. [employer] [facility]. provides no warranty or guarantee of the accuracy or completeness of information in this document.
--- OUTSIDE RECORDS SUMMARY | 2023-08-31 22:32 | XMS RPT_ITS | CCD ---
Author Name Unknown Address [facility] [address] [place] [address] Organization [facility] Care Team Providers Care Transplant Worker Name Role Phone DEMETRICE ISAACS Admitting Unavailable DEMETRICE ISAACS Consulting Unavailable DEMETRICE ISAACS Attending Unavailable LIYA AVITIA~[phone], LIYA DALTON Prima ry Care Unavailable DEMETRICE ISAACS Consulting Unavailable LIYA AVITIA, RACHAIVel Consulting Unavailab isabel NICKERSON APRN, RACHAIL Consulting Unavailab DEMETRICE Vela Consulting Unavailable DEMETRICE ISAACS Attending Unavailable LIYA SUPERMARKET MANAGER~[phone], LIYA DALTON Prima ry Care Unavailable DEMETRICE [...] 05-18-2023 End: 05-18-2023 ambulatory DENITA DE LEON [facility] Start: 02-07-2023 End: 02-08-2023 ambulatory DEMETRICE ISAACS Facility:[facility] Start: 02-01-2023 End: 02-02-2023 ambulatory DEMETRICE ISAACS Facility:[facility] Payers Date Payer Category Payer Unknown [id number] 2.16.8 [id number] 1999 Unknown [id number] 2.16.8 [id number] 1999 Unknown [id number] 2.16. [id number] 1959 Unknown [id number] Progress note 06-19-2021 Note Date & Type Note Facility 06-19-2021 Note HNO ID: [id number] Author: Gus Hardin MD Service: ? Author [...] and exercise. Follow up with PCP or TACTICAL AIR CONTROL PARTY. Seek evaluation for worsening headache, worsening dizziness, worsening nausea, vision change, numbness, weakness, or speech difficulty. Gus Hardin MD [facility] Summary Purpose Family History No Family History Records FoundNo Family History Records FoundNo Family History Records Found Advance Directives No Advanced Directives Records FoundNo Advanced Directives Records FoundNo Advanced Directives Records Found Additional Source Comments INFORMATION SOURCE (unrecogn ized section and content) DATE CREATED AUTHOR AUTHOR'S ORGANIZ ATION 02/10/2023 [facility] DATE CREATED AUTHOR AUTHOR'S ORGANIZ ATION 05/20/2023 [facility] FOR RECORDS PERTAINING TO PATIENTS WHO [...] BE BASED ON THE PRIMARY CLINICAL RECORDS. [facility]. provides no warranty or guarantee of the accuracy or completeness of information in this document.
== END | disposition home or self-care (01) ==
LOC: PAVLAB 15:17 → LAB 16:49
PROVIDERS: Referring Provider Advanced Practice Midwife; Visit Provider Advanced Practice Midwife
DX: O26.619 Liver and biliary tract disorders in pregnancy, unspecified trimester (principal); E78.79 Other disorders of bile acid and cholesterol metabolism; K76.89 Other specified diseases of liver; Z3A.00 Weeks of gestation of pregnancy not specified
CPT/HCPCS: 36415; 80053; 85025

== ENCOUNTER → 2023-09-01 | Outpatient (CLI) | payer OTHER, SELFPAY ==
--- OUTSIDE RECORDS SUMMARY | 2023-09-01 07:50 | XMS RPT_ITS | CCD ---
Author Name Unknown Address [facility] [address] [place] [address] Organization [facility] Care Team Providers Care Mechanical Development Engineer Name Role Phone DEMETRICE ISAACS Admitting Unavailable DEMETRICE ISAACS Consulting Unavailable DEMETRICE ISAACS Attending Unavailable LIYA AVITIA~[phone], LIYA DALTON Prima ry Care Unavailable DEMETRICE ISAACS Consulting Unavailable LIYA AVITIA, RACHAIVel Consulting Unavailab isabel NICKERSON APRN, RACHAIL Consulting Unavailab DEMETRICE Vela Consulting Unavailable DEMETRICE ISAACS Attending Unavailable LIYA PHOTOLITHOGRAPHER~[phone], LIYA DALTON Prima ry Care Unavailable DEMETRICE [...] 05-18-2023 End: 05-18-2023 ambulatory DENITA DE LEON [facility] Start: 02-07-2023 End: 02-08-2023 ambulatory DEMETRICE ISAACS Facility:[facility] Start: 02-01-2023 End: 02-02-2023 ambulatory DEMETRICE ISAACS Facility:[facility] Payers Date Payer Category Payer Unknown [id number] 2.16.8 [id number] 1999 Unknown [id number] 2.16.8 [id number] 1999 Unknown [id number] 2.16. [id number] 1959 Unknown [id number] Progress note 06-19-2021 Note Date & Type Note Facility 06-19-2021 Note HNO ID: [id number] Author: Gus Hardin MD Service: ? Author [...] and exercise. Follow up with PCP or ECONOMIC ADVISER. Seek evaluation for worsening headache, worsening dizziness, worsening nausea, vision change, numbness, weakness, or speech difficulty. Gus Hardin MD [facility] Summary Purpose Family History No Family History Records FoundNo Family History Records FoundNo Family History Records Found Advance Directives No Advanced Directives Records FoundNo Advanced Directives Records FoundNo Advanced Directives Records Found Additional Source Comments INFORMATION SOURCE (unrecogn ized section and content) DATE CREATED AUTHOR AUTHOR'S ORGANIZ ATION 02/10/2023 [facility] DATE CREATED AUTHOR AUTHOR'S ORGANIZ ATION 05/20/2023 [facility] FOR RECORDS PERTAINING TO PATIENTS WHO [...] BE BASED ON THE PRIMARY CLINICAL RECORDS. [facility]. provides no warranty or guarantee of the accuracy or completeness of information in this document.
--- NOTE | 2023-09-01 07:52 | US_ITS ---
STUDY: OBSTETRICAL ULTRASOUND - BIOPHYSICAL PROFILE REASON FOR EXAM: Female, 23 years old cholestasis LMP: December 31, 2022. PRIOR ULTRASOUND: None. TECHNIQUE: Transabdominal TECHNICAL QUALITY: Adequate. FINDINGS: There is a single intrauterine fetus. The fetus is in a cephalic presentation. There is demonstrated cardiac activity with a heart rate of 135 bpm. There is a normal amniotic fluid volume. The largest amniotic fluid pocket measures 4.8 cm. The amniotic fluid index (KINDRA) is 14.8 cm. The placenta is anterior in location and is not low lying. There are Grade 2 placental changes. Age by LMP: 34 weeks, 6 days. DORIS by LMP: October 07, 2023. BIOPHYSICAL PROFILE: Breathing Movements (FBM): 2 Gross Body Movements (GBM): 2 Tone (FT): 2 Amniotic Fluid Volume (AFV): 2 TOTAL SCORE: 8 / 8 US/Biophysical Prof W/O Non Stres IMPRESSION: Normal biophysical profile of 8/8. Electronically Signed: Leonel Carrington MD at 13:33 EDT ,
== END | disposition home or self-care (01) ==
PROVIDERS: Visit Provider Advanced Practice Midwife
DX: O26.613 Liver and biliary tract disorders in pregnancy, third trimester (principal); E78.79 Other disorders of bile acid and cholesterol metabolism; K76.89 Other specified diseases of liver; Z3A.34 34 weeks gestation of pregnancy
CPT/HCPCS: 76819

== ENCOUNTER → 2023-09-11 | Outpatient (CLI) | payer OTHER, SELFPAY ==
[2023-09-11 16:18] LABS: Absolute Lymphocyte Count 1.32 X10^3/uL (0.83-4.51); Absolute Neutrophil Count 6.3 X10^3/uL (2.0-7.7); Basophil# 0.02 X10^3/uL; Basophil% 0.2 % (0-1); Eosinophil# 0.06 X10^3/uL; Eosinophils% 0.7 % (0-5); Hematocrit 34.3 % (37-47); Hemoglobin 11.8 g/dL (12.0-15.0); Lymphocyte # 1.32 X10^3/ul (0.83-4.51); Lymphocyte % 15.3 % (19-41); Mean Corp Hgb Conc 34.4 g/dL (32-36); Mean Corpuscular Hgb 32.5 pg (27.0-32.0); Mean Corpuscular Volume 94.5 fL (81-99); Mean Platelet Vol. 10.4 fl (6.2-12.0); Monocyte# 0.95 X10^3/uL; NRBC Flagged by Analyzer 0 % (0-5); Neutrophil # 6.26 X10^3/uL (2.7-7.7); Neutrophil % 72.5 % (47-70); Platelet Count 171 K/mm3 (150-450); RBC Distribution Width CV 12.3 % (11.6-14.6); RBC Distribution Width SD 42.5 fl (35.1-43.9); Red Blood Count 3.63 M/mm3 (4.2-5.4); White Blood Count 8.6 K/mm3 (4.4-11.0)
[2023-09-11 16:55] LABS: ALB/GLOB Ratio 0.8 RATIO (0.9-2.4); AST(SGOT) 21 U/L (15-37); Alanine Aminotransfer ALT/SGPT 33 U/L (13-56); Albumin, Serum 2.8 g/dL (3.2-5.0); Alkaline Phosphatase 124 U/L (45-117); Anion Gap 5 (5-15); BUN 8 mg/dL (7-18); Calcium,Total 8.8 mg/dL (8.5-10.1); Chloride 109 mmol/L (98-107); EST Glomerular Filtration Rate 161 mL/min (>60); Est Glom Filt Rate - Afr Amer 194 mL/min (>60); Globulin 3.7 g/dL (2.2-4.2); Glucose 89 mg/dL (74-106); Potassium 3.6 mmol/L (3.5-5.1); Protein, Total 6.5 g/dL (6.4-8.2); Sodium Level 137 mmol/L (136-145)
== END | disposition home or self-care (01) ==
PROVIDERS: Referring Provider Obstetrics & Gynecology; Visit Provider Obstetrics & Gynecology
DX: O09.90 Supervision of high risk pregnancy, unspecified, unspecified trimester (principal); O99.719 Diseases of the skin and subcutaneous tissue complicating pregnancy, unspecified trimester; L29.9 Pruritus, unspecified; Z3A.00 Weeks of gestation of pregnancy not specified
CPT/HCPCS: 36415; 80053; 85025; 87077; 87081; 87186

== ENCOUNTER 2023-09-15 11:09 | Outpatient (CLI) | payer OTHER, SELFPAY ==
[2023-09-15 11:31] VITALS: BP 119/70; PULSE 86; BMI 24.2
[2023-09-15 11:35] VITALS: RESP 16; TEMP 36.7
--- NOTE | 2023-09-21 23:25 | OB.TRI.PN_ITS ---
Progress Notes Date of Service: 09/15/23 Progress Note: Patient presents for triage evaluation secondary to nausea and vomiting FHT: 140 Moderate variability reactive no decelerations category I tracing [place]: no regular Contractions Assessment and plan: nausea and vomiting Reactive NST, reassuring maternal and status patient discharged to home to follow-up as scheduled. See problem list details for additional plan information. Charges/Coding Procedures Urinary/Genital 52xxx-59xxx: 08827-74 non-stress test Interp
== END 2023-09-15 12:05 | disposition home or self-care (01) ==
LOC: WPOUT 11:15 → WP 11:16
PROVIDERS: Referring Provider Obstetrics & Gynecology; Visit Provider Obstetrics & Gynecology
DX: O21.9 Vomiting of pregnancy, unspecified (principal); Z79.82 Long term (current) use of aspirin; Z3A.00 Weeks of gestation of pregnancy not specified
CPT/HCPCS: 59025; 59050; 99221; G0378

== ENCOUNTER → 2023-09-18 | Outpatient (CLI) | payer OTHER, SELFPAY ==
[2023-09-18 14:22] LABS: Protein, Urine (Random) 51.6 mg/dL (<11.9); Protein:Creat Ratio 195 mg/g CRE (0-200)
== END | disposition home or self-care (01) ==
LOC: LABSPEC 13:41
PROVIDERS: Obstetrics & Gynecology; Referring Provider Registered Nurse; Visit Provider Registered Nurse
DX: Z34.90 Encounter for supervision of normal pregnancy, unspecified, unspecified trimester (principal)
CPT/HCPCS: 82570; 84156

== ENCOUNTER → 2023-09-19 | Outpatient (CLI) | payer OTHER, SELFPAY ==
[2023-09-19 10:23] LABS: Protein, Urine (Random) 7.1 mg/dL (<11.9); Protein:Creat Ratio 185 mg/g CRE (0-200)
== END | disposition home or self-care (01) ==
LOC: LAB 09:45
PROVIDERS: Referring Provider Internal Medicine Nephrology; Visit Provider Internal Medicine Nephrology
DX: Q61.2 Polycystic kidney, adult type (principal)
CPT/HCPCS: 82570; 84156

== ENCOUNTER 2023-10-02 14:20 | Outpatient (CLI) | payer OTHER, SELFPAY ==
[2023-10-02] VITALS (7 sets, daily range): BP systolic 121–128; BP diastolic 77–83; PULSE 63–74; BMI 24.8
[2023-10-02 14:49] LABS: Hemoglobin 12.2 g/dL (12.0-15.0); Mean Corp Hgb Conc 33.9 g/dL (32-36); Mean Corpuscular Hgb 31.8 pg (27.0-32.0); Mean Corpuscular Volume 93.8 fL (81-99); Platelet Count 160 K/mm3 (150-450); RBC Distribution Width CV 12.3 % (11.6-14.6); RBC Distribution Width SD 42.3 fl (35.1-43.9); Red Blood Count 3.84 M/mm3 (4.2-5.4); White Blood Count 9.3 K/mm3 (4.4-11.0)
[2023-10-02 15:03] LABS: AST(SGOT) 22 U/L (15-37); Alanine Aminotransfer ALT/SGPT 28 U/L (13-56); Creatinine, Serum 0.53 mg/dL (0.55-1.02); EST Glomerular Filtration Rate 151 mL/min (>60); Est Glom Filt Rate - Afr Amer 183 mL/min (>60); Estimated Creatinine Clearance 182.94 ml/min; Uric Acid 3.8 mg/dL (2.6-6.0)
[2023-10-02 15:16] LABS: Creatinine, Urine (random) < 13.00 mg/dL (NO RANGE EST.); Protein, Urine (Random) < 6.0 mg/dL (<11.9)
--- NOTE | 2023-10-02 21:27 | OB.TRI.HP_ITS ---
HPI - General General Date of Service: 10/02/23 HPI Narrative RUTH HENNESSY, is a 23 F who presents in triage from the office with history of occ visual changes/sparkles in eyes and elevated BP in the office. denies lof/vb/ctx. good fm. Maternal Data Information DORIS Calculator Estimated Delivery Date Method Current WG Current Estimate 10/07/23 LMP (Uncertain) 39w 2d Other Estimates 10/05/23 Ultrasound #1 39w 4d PFSH PFSH Medical History Cholestasis during Depression Polycystic kidney disease Pre-eclampsia Preeclampsia, severe Vaginal delivery Home Medications multivitamin no.47-iron fum 27 mg-folate no.1 1 mg-dha 300 mg capsule (PNV-DHA) 1 cap PO DAILY 02/23/23 [History Last Taken 09/14/23 21:00 1 cap] aspirin 81 mg chewable tablet (Aspirin Childrens) 1 tab PO DAILY 09/15/23 [H istory Last Taken 09/14/23 21:00 1 TAB] Allergy/AdvReac Type Severity Reaction Status Date / Time No Known Allergies Allergy Verified 10/02/23 13:37 Family History Grandmother Diabetes maternal Heart disease maternal Grandfather Diabetes maternal Heart disease maternal Other Hypertension Polycystic kidney disease Surgical History H/O left wrist surgery [place] teeth extracted Social History adopted: No household members: spouse and children number of children: 1 current occupational status: employed current occupation: [employer] 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) pets and animals: cat(s) history of recent travel: No sexually active: Yes Smoking Status: Never smoker second hand exposure: No alcohol intake: never substance use type: does not use well-balanced diet: daily or most days caffeine: No eating out: 1-3 times/week during the past year weight has: remained stable what type of physical activity do you participate in: walking frequency: 3-4 times per week duration: 15-30 minutes/day macho/pentecostal: None seatbelt use: always do you feel safe at home: Yes 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 Date Name GA/Weeks Outcome Route Bth Weight Infant Gen Labor Lgth Anesthesia Del Leonardoatn Provider FOB 11/02/21 James 36 live - Male epidural WC Lindsay Amaro Delivery Date: 11/02/21 Last Updated by: Monica Chow Polycystic Kidney disease IOL preeclampsia severe features boy James 36 Visit Details Expected Delivery Route/Plan fLabor Preferences- CB/BF classes: [] labor support person: [] labor intervention preferences: [] pain management options preferred: [] cut cord/dad catch: [] : [] PP control planned: [] discussed possible routes of delivery and associated risks: [] special requests: [] Plans Covid status: declined Flu vaccine: declined Tdap vaccine: given Rhogam: na LARC form signed:declined movement and labor precautions reviewed. Problem list reviewed and updated with the most current plan of care details and appropriate orders placed. Relevant counseling for the gestational age provided. Continue routine care and follow up unless otherwise noted in visit notes/problem list details OB Flowsheet Initial Weight: 149 lb Date -?-?-?-?-?-?-?-?-?-?-?-?- EGA Weight BP Urine Prot -?-?-?-?-?-?-?-?-?-?-?-?- Glucose FHR FuHt Pres Dilation -?-?-?-?-?-?-?-?-?-?-?-?- Effaced St Visit Note 03/09/23 -?-?-?-?-?-?-?-?-?-?-?-?- 9w 5d 149 lb (+0 oz) 133/83 -?-?-?-?-?-?-?-?-?-?--?-?- 150 -?-?-?-?-?-?-?-?-?-?-?-?- JV- CRL consiste nt with LMP. h/o pre-e starting baby asa and baseline pr:cr ordered. declines nipt and carrier. has 17 month old at home. has PKD stable. 04/06/23 -?-?-?-?-?-?-?-?-?-?-?-?- 13w 5d 148 lb 4 oz (-12 oz) 123/79 Negative -?-?-?-?-?-?-?-?-?-?-?-?- Negative 158 -?-?-?-?-?-?-?-?-?-?-?-?- KW-no vb/crampin g. NOB labs today. To start ASA today. Formal US ordered today. 05/08/23 -?-?-?-?-?-?-?-?-?-?-?-?- 18w 2d 154 lb 4 oz (+5 lb 4 oz) 134/79 Negative -?-?-?-?-?-?-?-?-?-?-?-?- Negative 152 -?-?-?-?-?-?-?-?-?-?-?-?- LC- no vb/crampi ng. having some pressure after urinating this weekend. urine culture obtained. anatomy scheduled for the , repeating BMP 06/07/23 -?-?-?-?-?-?-?-?-?-?-?-?- 22w 4d 163 lb (+14 lb) 122/77 Negative -?-?-?-?-?-?-?-?-?-?-?-?- Negative 157 -?-?-?-?-?-?-?-?-?-?-?-?- JV- no complaint s today. glucola ordered. RTO in 4 weeks. 06/26/23 -?-?-?-?-?-?-?-?-?-?-?-?- 25w 2d 162 lb 6 oz (+13 lb 6 oz) 124/72 Negative -?-?-?--?-?-?-?-?-?-?-?-?- Negative 153 -?-?-?-?-?-?-?-?-?-?-?-?- -seen ED last pm for upper abdominal pain. Nl labs. NO bile acids or US done. Pain recurring today. NO VB, LOF, CTX. Good FM. Will get bile acids and US. 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 good fm. 28 week labs today. 07/17/23 -?-?-?-?-?-?-?-?-?-?-?-?- 28w 2d 166 lb (+17 lb) 123/77 Negative -?-?-?-?-?-?-?-?-?-?-?-?- Negative 140 28 -?-?-?-?-?-?-?-?-?-?-?-?- SM- no vb lof go od fm no regular ctx 08/01/23 -?-?-?-?-?-?-?-?-?-?-?-?- 30w 3d 173 lb (+24 lb) 123/80 -?-?-?-?-?-?-?-?-?-?-?-?- 140 30 -?-?-?-?-?-?-?-?-?-?-?-?- Sm- no vb lof go od fm no regular ctx 08/15/23 -?-?-?-?-?-?-?-?-?-?-?-?- 32w 3d 173 lb (+24 lb) 120/79 Negative -?-?-?-?-?-?-?-?-?-?-?-?- Negative 140 31 -?-?-?-?-?-?-?-?-?-?-?-?- kw- no vb/lof/ct x. good fm. 08/29/23 -?-?-?-?-?-?-?-?-?-?-?--?- 34w 3d 173 lb 2 oz (+24 lb 2 oz) 139/93 Negative -?-?-?-?-?-?-?-?-?-?-?-?- Negative -?-?-?-?-?-?-?-?-?-?-?-?- sent to l and d due to elevated bp 08/31/23 -?-?-?-?-?-?-?-?-?-?-?-?- 34w 5d 175 lb 2 oz (+26 lb 2 oz) 126/81 Negative -?-?-?-?-?-?-?-?--?-?-?-?- Negative 155 34 -?-?-?-?-?-?-?-?-?-?-?-?- KW- no vb/lof/ct x. good fm. itching hand and feet. labs done today. and weekly. weekly visits and twice weekly testing until bile acids return. Had NST tues. will get BPP tomorrow. 09/05/23 -?-?-?-?-?-?-?-?-?-?-?-?- 35w 3d 175 lb (+26 lb) 138/82 Negative -?-?-?-?-?-?-?-?-?-?-?-?- Negative 140 33 -?-?-?-?-?-?-?-?-?-?-?-?- JV- pt states it aliya is not bad and does not want to start treatment until l abs are back. if labs not back by 37 weeks may consider IOL. NST reactive today 09/07/23 -?-?-?-?-?-?-?-?-?-?-?-?- 35w 5d 177 lb (+28 lb) 125/81 Negative -?-?-?-?-?-?-?-?-?-?-?-?- Negative 130 -?-?-?-?-?-?-?-?-?-?-?-?- SM- no vb lof go od fm no regular ctx 09/11/23 -?-?-?-?-?-?-?-?-?-?-?-?- 36w 2d 176 lb (+27 lb) 134/88 Negative -?-?-?-?-?-?-?-?-?-?-?-?- Negative 140 36 -?-?-?-?-?-?-?-?-?-?-?-?- SM- itching not severe, labs resulted and no cholestasis. redrawn today to reevaluate but will manage as low risk . 09/18/23 -?-?-?-?-?-?-?-?-?-?-?-?- 37w 2d 177 lb 4 oz (+28 lb 4 oz) 120/79 1+ -?-?-?-?-?-?-?-?-?-?-?-?- Negative 140 36 -?-?-?-?-?-?-?-?-?-?-?-?- LC- no vb/ctx/lo f. good fm. no itching today. LFTs normal. P:C ratio sent for +1 protein. denies headaches/visual changes/ruq pain. LC- no vb/ctx/lof. good fm. no itching today. LFTs normal. P:C ratio sent for +1 protein. denies headaches/visual changes/ruq pain. GBS pos. declines VE today. 09/25/23 -?-?-?-?-?-?-?-?-?-?-?-?- 38w 2d 178 lb (+29 lb) 124/87 -?-?-?--?-?-?-?-?-?-?-?-?- 140 37 Cephalic -?-?-?-?-?-?-?-?-?-?-?-?- SM- no vb lof no regualr ctx SM- no vb lof no regualr ctx discussed consider IOL due to PCKD and history of preeclampsia last . 10/02/23 -?-?-?-?-?-?-?-?-?-?-?-?- 39w 2d 179 lb 6 oz (+30 lb 6 oz) 142/92 Negative -?-?-?-?-?-?-?-?-?--?-?-?- Negative 143 Cephalic -?-?-?-?-?-?-?-?-?-?-?-?- JV-- JV- pt has higher bp's at ho me than here and had visual changes last night .sending to L&D now for pre-e work up. gbs is pos NST FHR Rate Baby A Baseline: 150 Variability:: Moderate Accelerations:: 15 x 15 Decelerations:: None NST Reactive:: Yes FHR Category:: Category I Assessment & Plan (1) History of pre-eclampsia: COMMENT: baby asa and baseline labs done (2) Elevated BP without diagnosis of hypertension: COMMENT: PEC labs negative with normal BPs in L&D PLAN: Plan Patient presents for triage evaluation secondary to PEC work up. negative labs. FHT: Moderate variability reactive no decelerations category I tracing [place]: irreg Contractions Assessment and plan: Reactive NST, reassuring maternal and status patient discharged to home to follow-up in office on or monday with home BP monitoring. . See problem list details for additional plan information. Charges/Coding Procedures Urinary/Genital 52xxx-59xxx: 85033-44 non-stress test Interp Multi Select Codes Urinary/Genital Urinary/Genital CPT Codes: 84463-40 non-stress test Interp
--- NOTE | 2023-10-02 21:27 | OB.TRI.NOTE ---
HPI - General General Date of Service: 10/02/23 HPI Narrative RUTH HENNESSY, is a 23 F who presents in triage from the office with history of occ visual changes/sparkles in eyes and elevated BP in the office. denies lof/vb/ctx. good fm. Maternal Data Information DORIS Calculator Estimated Delivery Date Method Current WG Current Estimate 10/07/23 LMP (Uncertain) 39w 2d Other Estimates 10/05/23 Ultrasound #1 39w 4d PFSH PFSH Medical History Cholestasis during Depression Polycystic kidney disease Pre-eclampsia Preeclampsia, severe Vaginal delivery Home Medications multivitamin no.47-iron fum 27 mg-folate no.1 1 mg-dha 300 mg capsule (PNV-DHA) 1 cap PO DAILY 02/23/23 [History Last Taken 09/14/23 21:00 1 cap] aspirin 81 mg chewable tablet (Aspirin Childrens) 1 tab PO DAILY 09/15/23 [History Last Taken 09/14/23 21:00 1 TAB] Allergy/AdvReac Type Severity Reaction Status Date / Time No Known Allergies Allergy Verified 10/02/23 13:37 Family History Grandmother Diabetes maternal Heart disease maternal Grandfather Diabetes maternal Heart disease maternal Other Hypertension Polycystic kidney disease Surgical History H/O left wrist surgery [place] teeth extracted Social History adopted: No household members: spouse and children number of children: 1 current occupational status: employed 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) pets and animals: cat(s) history of recent travel: No sexually active: Yes Smoking Status: Never smoker second hand exposure: No alcohol intake: never substance use type: does not use well-balanced diet: daily or most days caffeine: No eating out: 1-3 times/week during the past year weight has: remained stable what type of physical activity do you participate in: walking frequency: 3-4 times per week duration: 15-30 minutes/day macho/adventism: None seatbelt use: always do you feel safe at home: Yes 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 Date Name GA/Weeks Outcome Route Bth Weight Infant Gen Labor Lgth Anesthesia Del Leonardoatn Provider FOB 11/02/21 James 36 live - Male epidural WC Lindsay Amaro Delivery Date: 11/02/21 Last Updated by: Monica Chow Polycystic Kidney disease IOL preeclampsia severe features boy James 36 Visit Details Expected Delivery Route/Plan fLabor Preferences- CB/BF classes: [] labor support person: [] labor intervention preferences: [] pain management options preferred: [] cut cord/dad catch: [] : [] PP control planned: [] discussed possible routes of delivery and associated risks: [] special requests: [] Plans Covid status: declined Flu vaccine: declined Tdap vaccine: given Rhogam: na LARC form signed:declined movement and labor precautions reviewed. Problem list reviewed and updated with the most current plan of care details and appropriate orders placed. Relevant counseling for the gestational age provided. Continue routine care and follow up unless otherwise noted in visit notes/problem list details OB Flowsheet Initial Weight: 149 lb Date <del>?</del> EGA Weight BP Urine Prot <del>?</del> Glucose FHR FuHt Pres Dilation <del>?</del> Effaced St Visit Note 03/09/23 <del>?</del> 9w 5d 149 lb (+0 oz) 133/83 <del>?</del> 150 <del>?</del> JV- CRL consistent with LMP. h/o pre-e starting baby asa and baseline pr:cr ordered. declines nipt and carrier. has 17 month old at home. has PKD stable. 04/06/23 <del>?</del> 13w 5d 148 lb 4 oz (-12 oz) 123/79 Negative <del>?</del> Negative 158 <del>?</del> KW-no vb/cramping. NOB labs today. To start ASA today. Formal US ordered today. 05/08/23 <del>?</del> 18w 2d 154 lb 4 oz (+5 lb 4 oz) 134/79 Negative <del>?</del> Negative 152 <del>?</del> LC- no vb/cramping. having some pressure after urinating this weekend. urine culture obtained. anatomy scheduled for the , repeating BMP 06/07/23 <del>?</del> 22w 4d 163 lb (+14 lb) 122/77 Negative <del>?</del> Negative 157 <del>?</del> JV- no complaints today. glucola ordered. RTO in 4 weeks. 06/26/23 <del>?</del> 25w 2d 162 lb 6 oz (+13 lb 6 oz) 124/72 Negative <del>?</del> Negative 153 <del>?</del> MH-seen ED last pm for upper abdominal pain. Nl labs. NO bile acids or US done. Pain recurring today. NO VB, LOF, CTX. Good FM. Will get bile acids and US. 07/06/23 <del>?</del> 26w 5d 164 lb (+15 lb) 128/77 Negative <del>?</del> Negative 145 26 <del>?</del> kw-no vb/lof/cramping. good fm. 28 week labs today. 07/17/23 <del>?</del> 28w 2d 166 lb (+17 lb) 123/77 Negative <del>?</del> Negative 140 28 <del>?</del> SM- no vb lof good fm no regular ctx 08/01/23 <del>?</del> 30w 3d 173 lb (+24 lb) 123/80 <del>?</del> 140 30 <del>?</del> Sm- no vb lof good fm no regular ctx 08/15/23 <del>?</del> 32w 3d 173 lb (+24 lb) 120/79 Negative <del>?</del> Negative 140 31 <del>?</del> kw- no vb/lof/ctx. good fm. 08/29/23 <del>?</del> 34w 3d 173 lb 2 oz (+24 lb 2 oz) 139/93 Negative <del>?</del> Negative <del>?</del> sent to l and d due to elevated bp 08/31/23 <del>?</del> 34w 5d 175 lb 2 oz (+26 lb 2 oz) 126/81 Negative <del>?</del> Negative 155 34 <del>?</del> KW- no vb/lof/ctx. good fm. itching hand and feet. labs done today. and weekly. weekly visits and twice weekly testing until bile acids return. Had NST tues. will get BPP tomorrow. 09/05/23 <del>?</del> 35w 3d 175 lb (+26 lb) 138/82 Negative <del>?</del> Negative 140 33 <del>?</del> JV- pt states itching is not bad and does not want to start treatment until labs are back. if labs not back by 37 weeks may consider IOL. NST reactive today 09/07/23 <del>?</del> 35w 5d 177 lb (+28 lb) 125/81 Negative <del>?</del> Negative 130 <del>?</del> SM- no vb lof good fm no regular ctx 09/11/23 <del>?</del> 36w 2d 176 lb (+27 lb) 134/88 Negative <del>?</del> Negative 140 36 <del>?</del> SM- itching not severe, labs resulted and no cholestasis. redrawn today to reevaluate but will manage as low risk . 09/18/23 <del>?</del> 37w 2d 177 lb 4 oz (+28 lb 4 oz) 120/79 1+ <del>?</del> Negative 140 36 <del>?</del> LC- no vb/ctx/lof. good fm. no itching today. LFTs normal. P:C ratio sent for +1 protein. denies headaches/visual changes/ruq pain. LC- no vb/ctx/lof. good fm. no itching today. LFTs normal. P:C ratio sent for +1 protein. denies headaches/visual changes/ruq pain. GBS pos. declines VE today. 09/25/23 <del>?</del> 38w 2d 178 lb (+29 lb) 124/87 <del>?</del> 140 37 Cephalic <del>?</del> SM- no vb lof no regualr ctx SM- no vb lof no regualr ctx discussed consider IOL due to PCKD and history of preeclampsia last . 10/02/23 <del>?</del> 39w 2d 179 lb 6 oz (+30 lb 6 oz) 142/92 Negative <del>?</del> Negative 143 Cephalic <del>?</del> JV-- JV- pt has higher bp's at home than here and had visual changes last night .sending to L&D now for pre-e work up. gbs is pos NST FHR Rate Baby A Baseline: 150 Variability:: Moderate Accelerations:: 15 x 15 Decelerations:: None NST Reactive:: Yes FHR Category:: Category I Assessment & Plan (1) History of pre-eclampsia: COMMENT: baby asa and baseline labs done (2) Elevated BP without diagnosis of hypertension: COMMENT: PEC labs negative with normal BPs in L&D PLAN: Plan Patient presents for triage evaluation secondary to PEC work up. negative labs. FHT: Moderate variability reactive no decelerations category I tracing Ramirez-Perez: irreg Contractions Assessment and plan: Reactive NST, reassuring maternal and status patient discharged to home to follow-up in office on or monday with home BP monitoring. . See problem list details for additional plan information. Charges/Coding Procedures Urinary/Genital 52xxx-59xxx: 48585-83 non-stress test Interp Multi Select Codes Urinary/Genital Urinary/Genital CPT Codes: 56502-59 non-stress test Interp
[2023-10-03 07:23] VITALS: BP 119/60; PULSE 82
== END 2023-10-02 16:32 | disposition home or self-care (01) ==
LOC: WPOUT 14:24 → WP 14:24
PROVIDERS: Referring Provider Registered Nurse; Visit Provider Registered Nurse
DX: O99.891 Other specified diseases and conditions complicating pregnancy (principal); R03.0 Elevated blood-pressure reading, without diagnosis of hypertension; Z3A.39 39 weeks gestation of pregnancy
CPT/HCPCS: 36415; 59025; 59050; 82565; 82570; 84156; 84450; 84460; 84550; 85027; 99221; G0378

== ENCOUNTER 2023-10-05 16:06 | Inpatient (IN) | payer OTHER, SELFPAY ==
[2023-10-05 16:17] VITALS: BMI 25.0
[2023-10-05 16:22] VITALS: BP 134/91; PULSE 81
[2023-10-05 16:23] VITALS: RESP 16; TEMP 36.2; O2SAT 98
[2023-10-05 16:24] VITALS: PULSE 78; O2SAT 98
[2023-10-05] MEDS: Lactated Ringers 1,000 ML 50 ML IV (16:30)
[2023-10-05 17:19] LABS: Absolute Neutrophil Count 5.2 X10^3/uL (2.0-7.7); Basophil# 0.02 X10^3/uL; Basophil% 0.3 % (0-1); Eosinophil# 0.04 X10^3/uL; Eosinophils% 0.5 % (0-5); Hematocrit 33.3 % (37-47); Hemoglobin 11.3 g/dL (12.0-15.0); Lymphocyte % 22.8 % (19-41); Mean Corp Hgb Conc 33.9 g/dL (32-36); Mean Corpuscular Hgb 31.7 pg (27.0-32.0); Mean Corpuscular Volume 93.3 fL (81-99); Monocyte# 0.77 X10^3/uL; Monocyte% 9.8 % (0-10); NRBC Flagged by Analyzer 0 % (0-5); Neutrophil # 5.23 X10^3/uL (2.7-7.7); Neutrophil % 66.2 % (47-70); Platelet Count 155 K/mm3 (150-450); RBC Distribution Width CV 12.1 % (11.6-14.6); RBC Distribution Width SD 41.3 fl (35.1-43.9); Red Blood Count 3.57 M/mm3 (4.2-5.4); White Blood Count 7.9 K/mm3 (4.4-11.0)
[2023-10-05] MEDS: Penicillin G Pot 5,000,000 UNITS in 0.9% Normal Saline (100mL MB+) 100 ML 150 UNITS IV (17:25)
[2023-10-05 17:31] LABS: AST(SGOT) 22 U/L (15-37); Alanine Aminotransfer ALT/SGPT 21 U/L (13-56); Creatinine, Serum 0.41 mg/dL (0.55-1.02); EST Glomerular Filtration Rate 204 mL/min (>60); Est Glom Filt Rate - Afr Amer 247 mL/min (>60); Estimated Creatinine Clearance 236.48 ml/min; Uric Acid 3.6 mg/dL (2.6-6.0)
[2023-10-05 17:56] LABS: Syphilis Antibodies Non-reactive
[2023-10-05] MEDS: miSOPROStol 25 MCG TABLET VAGINAL ×2 (18:55→23:14)
[2023-10-05 19:08] LABS: Protein:Creat Ratio 210 mg/g CRE (0-200)
[2023-10-05 19:26] VITALS: BP 134/81; PULSE 83; RESP 18; TEMP 37.7; O2SAT 97
[2023-10-05] MEDS: Penicillin G 3,000,000 Units 50 ML 100 UNITS IV (21:25)
[2023-10-05 23:08] VITALS: BP 133/90; PULSE 74; RESP 16; TEMP 36.8; O2SAT 97
[2023-10-05] MEDS: Mag Hydrox/Al Hydrox/Simeth 30 ML UDC PO (23:10)
[2023-10-06] VITALS (53 sets, daily range): BP systolic 102–171; BP diastolic 51–104; PULSE 59–105; RESP 16–18; TEMP 36.4–37.4; O2SAT 85–100
[2023-10-06] MEDS: Penicillin G 3,000,000 Units 50 ML 100 UNITS IV ×4 (01:36→14:47)
[2023-10-06] MEDS: miSOPROStol 25 MCG TABLET VAGINAL (03:20)
[2023-10-06] MEDS: Lactated Ringers 1,000 ML 50 ML IV (04:06)
--- NOTE | 2023-10-06 07:11 | HP.PCM.OB_ITS ---
HPI - General General Date of Admission: 10/05/23 Date of Service: 10/06/23 HPI Narrative RUTH HENNESSY, is a 23 F 39.6 weeks gestation today who presented yesterday to the unit from the office for IOL for gestational hypertension. Maternal Data Information DORIS Calculator Estimated Delivery Date Method Current WG Current Estimate 10/07/23 LMP (Uncertain) 39w 6d Other Estimates 10/05/23 Ultrasound #1 40w 1d Final DORIS: 10/07/23 Final DORIS Source: US >20 weeks Gestational age: 39.6 weeks [facility] Medical History Cholestasis during Depression Polycystic kidney disease Pre-eclampsia Preeclampsia, severe Vaginal delivery Home Medications multivitamin no.47-iron fum 27 mg-folate no.1 1 mg-dha 300 mg capsule (PNV-DHA) 1 cap PO DAILY 02/23/23 [History Last Taken 10/04/23] aspirin 81 mg chewable tablet (Aspirin Childrens) 1 tab PO DAILY pre E 09/15/23 [History Last Taken 10/04/23] Allergy/AdvReac Type Severity Reaction Status Date / Time No Known Allergies Allergy Verified 10/05/23 16:26 Family History Grandmother Diabetes maternal Heart disease maternal Grandfather Diabetes maternal Heart disease maternal Other Hypertension Polycystic kidney disease Surgical History H/O left wrist surgery [place] teeth extracted Social History adopted: No household members: spouse and children number of children: 1 current occupational status: employed current occupation: [employer] 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) pets and animals: cat(s) history of recent travel: No sexually active: Yes Smoking Status: Never smoker second hand exposure: No alcohol intake: never substance use type: does not use well-balanced diet: daily or most days caffeine: No eating out: 1-3 times/week during the past year weight has: remained stable what type of physical activity do you participate in: walking frequency: 3-4 times per week duration: 15-30 minutes/day macho/sabianist: None seatbelt use: always do you feel safe at home: Yes 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 Date Name GA/Weeks Outcome Route Bth Weight Infant Gen Labor Lgth Anesthesia Del Locatn Provider FOB 11/02/21 James 36 live - Male epidural WC Lindsay Amaro Delivery Date: 11/02/21 Last Updated by: Monica Chow Polycystic Kidney disease IOL preeclampsia severe features boy James 36 Visit Details Expected Delivery Route/Plan fLabor Preferences- CB/BF classes: [] labor support person: [] labor intervention preferences: [] pain management options preferred: [] cut cord/dad catch: [] : [] PP control planned: [] discussed possible routes of delivery and associated risks: [] special requests: [] Plans Covid status: declined Flu vaccine: declined Tdap vaccine: given Rhogam: na LARC form signed:declined movement and labor precautions reviewed. Problem list reviewed and updated with the most current plan of care details and appropriate orders placed. Relevant counseling for the gestational age provided. Continue routine care and follow up unless otherwise noted in visit notes/problem list details OB Flowsheet Initial Weight: 149 lb Date -?-?-?-?-?-?-?-?-?-?-?-?- EGA Weight BP Urine Prot -?-?-?-?-?-?-?-?-?-?-?-?- Glucose FHR FuHt Pres Dilation -?-?-?-?-?-?-?-?-?-?-?-?- Effaced St Visit Note 03/09/23 -?-?-?-?-?-?-?-?-?-?-?-?- 9w 5d 149 lb (+0 oz) 133/83 -?-?-?-?-?-?-?-?-?-?-?-?- 150 -?-?-?-?-?-?-?-?-?-?-?-?- JV- CRL consiste nt with LMP. h/o pre-e starting baby asa and baseline pr:cr ordered. declines nipt and carrier. has 17 month old at home. has PKD stable. 04/06/23 -?-?-?-?-?-?-?-?-?-?-?-?- 13w 5d 148 lb 4 oz (-12 oz) 123/79 Negative -?-?-?-?-?-?-?-?-?-?-?-?- Negative 158 -?-?-?-?-?-?-?-?-?-?-?-?- KW-no vb/crampin g. NOB labs today. To start ASA today. Formal US ordered today. 05/08/23 -?-?-?-?-?-?-?-?-?-?-?-?- 18w 2d 154 lb 4 oz (+5 lb 4 oz) 134/79 Negative -?-?-?-?-?-?-?-?-?-?-?-?- Negative 152 -?-?-?-?-?-?-?-?-?-?-?-?- LC- no vb/crampi ng. having some pressure after urinating this weekend. urine culture obtained. anatomy scheduled for the , repeating BMP 06/07/23 -?-?-?-?-?-?-?-?-?-?-?-?- 22w 4d 163 lb (+14 lb) 122/77 Negative -?-?-?-?-?-?-?-?-?-?-?-?- Negative 157 -?-?-?-?-?-?-?-?-?-?-?-?- JV- no complaint s today. glucola ordered. RTO in 4 weeks. 06/26/23 -?-?-?-?-?-?-?-?-?-?-?-?- 25w 2d 162 lb 6 oz (+13 lb 6 oz) 124/72 Negative -?-?-?-?-?-?-?-?-?-?-?-?- Negative 153 -?-?-?-?-?-?-?-?-?-?-?-?- MH-seen ED last pm for upper abdominal pain. Nl labs. NO bile acids or US done. Pain recurring today. NO VB, LOF, CTX. Good FM. Will get bile acids and US. 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 good fm. 28 week labs today. 07/17/23 -?-?-?-?-?-?-?-?-?-?-?-?- 28w 2d 166 lb (+17 lb) 123/77 Negative -?-?-?-?-?-?-?-?-?-?-?-?- Negative 140 28 -?-?-?-?-?-?-?-?-?-?-?-?- SM- no vb lof go od fm no regular ctx 08/01/23 -?-?-?-?-?-?-?-?-?-?-?-?- 30w 3d 173 lb (+24 lb) 123/80 -?-?-?-?-?-?-?-?-?-?-?-?- 140 30 -?-?-?--?-?-?-?-?-?-?-?-?- Sm- no vb lof go od fm no regular ctx 08/15/23 -?-?-?-?-?-?-?-?-?-?-?-?- 32w 3d 173 lb (+24 lb) 120/79 Negative -?-?-?-?-?-?-?-?-?-?-?-?- Negative 140 31 -?-?-?-?-?-?-?-?-?-?-?-?- kw- no vb/lof/ct x. good fm. 08/29/23 -?-?-?-?-?-?-?-?-?-?-?-?- 34w 3d 173 lb 2 oz (+24 lb 2 oz) 139/93 Negative -?-?-?-?-?-?-?-?-?-?-?-?- Negative -?-?-?-?-?-?-?-?-?-?-?-?- sent to l and d due to elevated bp 08/31/23 -?-?-?-?-?-?-?-?-?-?-?-?- 34w 5d 175 lb 2 oz (+26 lb 2 oz) 126/81 Negative -?-?-?-?-?-?-?-?-?-?-?-?- Negative 155 34 -?-?-?-?-?-?-?-?-?-?-?-?- KW- no vb/lof/ct x. good fm. itching hand and feet. labs done today. and weekly. weekly visits and twice weekly testing until bile acids return. Had NST tues. will get BPP tomorrow. 09/05/23 -?-?-?-?-?-?-?-?-?-?-?-?- 35w 3d 175 lb (+26 lb) 138/82 Negative -?-?-?-?--?-?-?-?-?-?-?-?- Negative 140 33 -?-?-?-?-?-?-?-?-?-?-?-?- JV- pt states it aliya is not bad and does not want to start treatment until labs are back. if labs not back by 37 weeks may consider IOL. NST reactive today 09/07/23 -?-?-?-?-?-?-?-?-?-?-?-?- 35w 5d 177 lb (+28 lb) 125/81 Negative -?-?-?--?-?-?-?-?-?-?-?-?- Negative 130 -?-?-?-?-?-?-?-?-?-?-?-?- SM- no vb lof go od fm no regular ctx 09/11/23 -?-?-?-?-?-?-?-?-?-?-?-?- 36w 2d 176 lb (+27 lb) 134/88 Negative -?-?-?-?-?-?-?-?-?-?-?-?- Negative 140 36 -?-?-?-?-?-?-?-?-?-?-?-?- SM- itching not severe, labs resulted and no cholestasis. redrawn today to reevaluate but will manage as low risk . 09/18/23 -?-?-?-?-?-?-?-?-?-?-?-?- 37w 2d 177 lb 4 oz (+28 lb 4 oz) 120/79 1+ -?-?-?-?-?-?-?-?-?-?-?-?- Negative 140 36 -?-?-?-?-?-?-?-?-?-?-?-?- LC- no vb/ctx/lo f. good fm. no itching today. LFTs normal. P:C ratio sent for +1 protein. denies headaches/visual changes/ruq pain. LC- no vb/ctx/lof. good fm. no itching today. LFTs normal. P:C ratio sent for +1 protein. denies headaches/visual changes/ruq pain. GBS pos. declines VE today. 09/25/23 -?-?-?-?-?-?-?-?-?-?-?-?- 38w 2d 178 lb (+29 lb) 124/87 -?-?-?-?-?-?-?-?-?-?-?-?- 140 37 Cephalic -?-?-?-?-?-?-?-?-?-?-?-?- SM- no vb lof no regualr ctx SM- no vb lof no regualr ctx discussed consider IOL due to PCKD and history of preeclampsia last . 10/02/23 -?-?-?-?-?-?-?-?-?-?-?-?- 39w 2d 179 lb 6 oz (+30 lb 6 oz) 142/92 Negative -?-?-?-?-?-?-?-?-?-?-?-?- Negative 143 Cephalic -?-?-?-?-?-?-?-?-?-?-?-?- JV-- JV- pt has higher bp's at ho me than here and had visual changes last night .sending to L&D now for pre-e work up. gbs is pos 10/05/23 -?-?-?-?-?-?-?-?-?-?-?-?- 39w 5d 180 lb 6 oz (+31 lb 6 oz) 137/88 Negative -?-?-?-?-?-?-?-?-?-?-?-?- Negative 135 36 Cephalic 1 -?-?-?-?-?-?-?-?-?-?-?-?- 30 -3 kw- repeat bp 158/100. to for cytotec IOL. NST FHR Rate Baby A Baseline: 130 Variability:: Moderate Accelerations:: 15 x 15 Decelerations:: None NST Reactive:: Yes FHR Category:: Category I Uterine Activity:: irregular cramping with cytotec ROS Constitutional Constitutional: Denies change in weight, fatigue, fever(s), headache(s), poor appetite or weakness Eyes Eyes: Denies blurry vision, change in vision, floaters, seeing flashes or spots in vision ENT HEENT: Denies dizziness, headache(s), loss taste/smell or sore throat Cardiovascular Cardiovascular: Denies chest pain, dizziness, dyspnea, irregular heart rhythm, lightheadedness, palpitations or rapid heart rate Respiratory/Chest Respiratory/Chest: Denies change in mental status, chest tightness, cough, dyspnea or breast pain Gastrointestinal Gastrointestinal: Denies anorexia, chewing difficulty, constipation, diarrhea or weight changes Genitourinary Genitourinary: Denies difficulty urinating, dysuria, flank pain, genital pain, urinary frequency or urinary urgency Musculoskeletal Musculoskeletal: Denies back pain, difficulty walking, extremity pain, joint pain, muscle cramps or muscle weakness Integumentary Integumentary: Denies lesions or unusual bruising Neurologic Neurologic: Denies abnormal movements, abnormal speech, dizziness, numbness, seizure-like activity, syncope or weakness Psychiatric Psychiatric: Denies behavioral changes, change in appetite, confusion, depression, homicidal ideation, suicidal ideation or suicidal thoughts Endocrine Endocrinology: Denies excessive sweating, polydipsia or polyuria Hematologic/Lymphatic Hematologic/Lymphatic: Denies anemia Allergic/Immunologic Allergic/Immunologic: Denies itchy eyes, lip swelling, throat swelling, tongue swelling or wheezing Vital Signs Vital Signs Vital Signs: 10/05/23 16:22 10/05/23 16:22 10/05/23 16:24 Temperature Temperature Source Pulse Rate 81 78 Respiratory Rate Blood Pressure 134/91 H BP Systolic 134 BP Diastolic 91 Pulse Ox 10/05/23 16:24 10/05/23 16:23 10/05/23 16:23 Temperature Temperature Source Temporal Pulse Rate Respiratory Rate 16 Blood Pressure BP Systolic BP Diastolic Pulse Ox 98 10/05/23 16:23 10/05/23 16:23 10/05/23 19:26 Temperature 97.1 F L Temperature Source Pulse Rate Respiratory Rate Blood Pressure 134/81 H BP Systolic 134 BP Diastolic 81 Pulse Ox 98 10/05/23 19:26 10/05/23 19:26 10/05/23 19:26 Temperature Temperature Source Temporal Pulse Rate 83 Respiratory Rate Blood Pressure BP Systolic BP Diastolic Pulse Ox 97 10/05/23 19:26 10/05/23 19:26 10/05/23 23:08 Temperature 99.8 F H Temperature Source Temporal Pulse Rate Respiratory Rate 18 Blood Pressure BP Systolic BP Diastolic Pulse Ox 10/05/23 23:08 10/05/23 23:08 10/05/23 23:08 Temperature Temperature Source Pulse Rate 74 Respiratory Rate 16 Blood Pressure 133/90 H BP Systolic 133 BP Diastolic 90 Pulse Ox 10/05/23 23:08 10/05/23 23:08 10/06/23 03:22 Temperature 98.3 F Temperature Source Temporal Pulse Rate Respiratory Rate Blood Pressure BP Systolic BP Diastolic Pulse Ox 97 10/06/23 03:23 10/06/23 03:23 10/06/23 03:22 Temperature Temperature Source Pulse Rate 67 Respiratory Rate 16 Blood Pressure 108/65 BP Systolic 108 BP Diastolic 65 Pulse Ox 10/06/23 03:22 10/06/23 03:23 10/06/23 03:23 Temperature 99.4 F H Temperature Source Pulse Rate 77 Respiratory Rate Blood Pressure BP Systolic BP Diastolic Pulse Ox 96 Weight Weight: 179 lb 14.355 oz Body Mass Index (BMI) 25.0 Physical Exam Const alert, oriented x3 and no apparent distress General Appearance: cooperative Orientation / Consciousness: awake HEENT normocephalic Neck full ROM Lymph Lymphatic: no lymphadenopathy noted Chest inspection of chest normal Resp normal respiratory effort and normal air movement Effort and Inspection: able to speak in complete sentences and symmetric chest movement GI soft to palpation and non-tender Inspection: gravid Palpation: soft; Negative for tender external exam normal Manual OB Exam: dilated 0 Back/Spine normal to inspection Extremity normal to inspection and full ROM Skin no rashes or lesions noted Psych mental status grossly normal Appearance: grossly normal Speech: normal speech Labs Labs Labs: Blood Type AB POSITIVE Antibody Screen NEGATIVE Hct 33.3 % (37-47) L Hgb 11.3 g/dL (12.0-15.0) L Obstetrics Ultrasound Syphilis Total Ab Non-reactive Rubella IgG Antibody Reactive (Nonreactive) Hep Bs Antigen Non-Reactive (Nonreactive) Hepatitis C Antibody Non-Reactive (Nonreactive) Hepatitis C Ab (EIA) <0.1 s/co ratio (0.0-0.9) Chlamydia DNA (JESE) Negative (Negative) N.gonorrhoeae DNA (JESE) Negative (Negative) HIV 1&2 Antibody Non-Reactive (Nonreactive) Glucose 1 Hr 50 gm 92 mg/dL (70-140) Group B Strep DNA Negative (Negative) Rhogam given: No Miscellaneous Test Assessment & Plan (1) Encounter for induction of labor: PLAN: Patient presents IOL, plan management for with pitocin/AROM. Pain management: plans epidural. GBS positive-PCN. Management of any complications: gestational HTN I have reviewed the [facility] and made any clinically relevant updates. (2) Elevated BP without diagnosis of hypertension: COMMENT: PEC labs negative with normal BPs in L&D (3) Positive GBS test: COMMENT: treat in labor (4) UTI in : COMMENT: Negative culture on 05/08/23 (5) History of pre-eclampsia: COMMENT: baby asa and baseline labs done (6) Supervision of high-risk : QUALIFIERS: Trimester: second trimester Qualified Code(s): O09.92 - Supervision of high risk , unspecified, second trimester COMMENT: PRR, , DORIS 10/07/23 surprise PC James Prem (7) : QUALIFIERS: Weeks of gestation: 39 weeks Qualified Code(s): Z3A.39 - 39 weeks gestation of COMMENT: declined afp genetic & carrier testing. nl anatomy (8) Polycystic kidney disease: COMMENT: baseline ur/pr cr ratio, cmp. asa at 14 weeks. dx at 14 yrs old- genetic- Father has it as well, discussed FOB testing if desired.imaging done in past, stable. Charges/Coding Multi Select Codes Urinary/Genital Urinary/Genital CPT Codes: No Charge
[2023-10-06] MEDS: LACTATED RINGERS 500 ML 999 ML IV (10:44)
[2023-10-06] MEDS: fentaNYL-bupivacaine (epidural) 100 ML BAG EPIDURAL ×2 (11:52→16:09)
--- NOTE | 2023-10-06 12:35 | PCM.PN.BLA ---
Progress Note comfortable with epidural current tracing: FHT: 130 Moderate variability reactive no decelerations category I tracing [place]: 2-3 minutes Contractions Membranes:AROM clear at 1230 SVE:4/80/-2 A/P: Continue with position changes Start pitocin per protocol if appropriate Epidural per anesthesia PCN for GBS prophylaxis Anticipate Dr Mancuso aware of above assessment and agrees with plan of care Assessment & Plan Assessment/Plan (1) Encounter for induction of labor: (2) Elevated BP without diagnosis of hypertension: (3) Positive GBS test: (4) UTI in : (5) History of pre-eclampsia: (6) Supervision of high-risk : QUALIFIERS: Trimester: second trimester Qualified Code(s): O09.92 - Supervision of high risk , unspecified, second trimester (7) : QUALIFIERS: Weeks of gestation: 39 weeks Qualified Code(s): Z3A.39 - 39 weeks gestation of (8) Polycystic kidney disease: Multi Select Codes Urinary/Genital Urinary/Genital CPT Codes: No Charge
[2023-10-06] MEDS: Lactated Ringers 1,000 ML 200 ML IV (14:47)
[2023-10-06] MEDS: Oxytocin 15 Units/NS 250ml 15 UNITS/250 ML IV.SOLN 2 UNITS IV (14:51)
--- NOTE | 2023-10-06 16:04 | PCM.PN.BLA ---
Progress Note comfortable with epidural current tracing: FHT: 150 Moderate variability reactive no decelerations category I tracing [place]: 2-3 minutes Contractions Membranes: ruptured remains clear SVE:5/90/-1 A/P: Continue with position changes Titrate pitocin per protocol Epidural per anesthesia Anticipate Dr Mancuso aware of above assessment and agrees with plan of care Assessment & Plan Assessment/Plan (1) Encounter for induction of labor: (2) Elevated BP without diagnosis of hypertension: (3) Positive GBS test: (4) History of pre-eclampsia: (5) Supervision of high-risk : QUALIFIERS: Trimester: second trimester Qualified Code(s): O09.92 - Supervision of high risk , unspecified, second trimester (6) : QUALIFIERS: Weeks of gestation: 39 weeks Qualified Code(s): Z3A.39 - 39 weeks gestation of (7) Polycystic kidney disease: Multi Select Codes Urinary/Genital Urinary/Genital CPT Codes: No Charge
--- NOTE | 2023-10-06 18:21 | EX.PCM.OBRPT ---
Assessment & Plan (1) Vaginal delivery: COMMENT: IOL 39 GHTN boy KW (2) Elevated BP without diagnosis of hypertension: COMMENT: PEC labs negative with normal BPs in L&D (3) Positive GBS test: COMMENT: treat in labor (4) History of pre-eclampsia: COMMENT: baby asa and baseline labs done (5) Supervision of high-risk : QUALIFIERS: Trimester: second trimester Qualified Code(s): O09.92 - Supervision of high risk , unspecified, second trimester COMMENT: PRR, , DORIS 10/07/23 surprise PC James Prem (6) : QUALIFIERS: Weeks of gestation: 39 weeks Qualified Code(s): Z3A.39 - 39 weeks gestation of COMMENT: declined afp genetic & carrier testing. nl anatomy (7) Polycystic kidney disease: COMMENT: baseline ur/pr cr ratio, cmp. asa at 14 weeks. dx at 14 yrs old- genetic- Father has it as well, discussed FOB testing if desired.imaging done in past, stable. Maternal Data Information DORIS Calculator Estimated Delivery Date Method Current WG Current Estimate 10/07/23 LMP (Uncertain) 39w 6d Other Estimates 10/05/23 Ultrasound #1 40w 1d Final DORIS: 10/07/23 Final DORIS Source: US >20 weeks Gestational age: 39.6 Vaginal Delivery Maternal Presentation Maternal Presentation: Progressed well to 10cm dilated and made steady progress with effective maternal pushing. Delivered the head in [place] presentation. The head was delivered atraumatically and no nuchal cord was identified. The anterior and posterior shoulders delivered without complication followed by the rest of the and the was placed on the maternal abdomen. Delayed cord clamping was employed for approximately 3 minutes. Cord was clamped and cut and gentle traction was applied to the cord and the placenta delivered spontaneously. Immediately following, it was noted to be intact with a 3 vessel cord. The perineum and vagina were inspected and noted to have a first degree laceration which was repaired with 3-0 Vicryl in the usual fashion. EBL was 200cc. uterine sweep done and one medium size clot extracted. bleeding stable. Patient and tolerated delivery well. Apgars 9/9. Dr Mancuso notified of vaginal delivery and orders reviewed. Physician agrees with current plan of care. 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 #1: Linda Michael Type of Anesthesia: Epidural Estimated Blood Loss: 200 Time of Delivery: 18:00 Findings Presentation: Vertex Amniotic Membrane Rupture Type: Artificial Amniotic Fluid Description: Clear Placental Delivery Description: Spontaneous Placenta Disposition: [facility] Cord Vessel Description: 3 Vessels Cord Entanglement: None Infant A Gender: Male (1 minute): 9 (5 minute): 9 Delayed Cord Clamping: Yes Post Vaginal Delivery Medications Given After Delivery: IM Pitocin Episiotomy Description: None Laceration: 1st degree Complication Complications: None Multi Select Codes Urinary/Genital Urinary/Genital CPT Codes: 18376 Vaginal Delivery [facility]
--- NOTE | 2023-10-06 18:27 | DCINST_ITS ---
Discharge Instructions Diet Discharge Diet: No restrictions Activity Discharge Activity: Return to Normal Activity May resume sexual activity in: 6-8 weeks Dressing / Incision Call your doctor if you observe: Fever of 101 or Higher, Coldness, Increased Pain, Numbness or Tingling, Change in Color, Inability to urinate, Inability to have a bowel movement, Using more than 1 pad per hour, Shortness of breath, Dizziness, Fainting spells, Swelling in the ankles, Chest pain, Increased palpitations (irregular heartbeat), Calf discomfort and Uncontrolled pain Follow Up Care Please Follow Up With: Linda Michael CNM When: Please call the office to schedule your follow up appointment in 6 weeks. If you had high blood pressure please call to schedule an appointment in 2 weeks. Test Results: Test results from this visit will be discussed in further detail at your follow- up appointment, if applicable. Discharge Plan Admission Admit Date/Time: 10/05/23 15:55 Attending Provider: Lindsay Mancuso Primary Care Provider: Care Physician,No Primary Discharge Orders/Prescriptions Prescriptions: No Action PNV-DHA 27 mg iron-1 mg -300 mg capsule 1 cap PO DAILY aspirin [Aspirin Childrens] 81 mg tablet,chewable 1 tab PO DAILY Referrals / Follow Up: Care Physician,No Primary [Primary Care Provider] -
[2023-10-06] MEDS: Oxytocin 15 Units/NS 250ml 15 UNITS/250 ML IV.SOLN 83 UNITS IV (18:47)
[2023-10-07 03:57] VITALS: BP 137/82; PULSE 66; RESP 16; TEMP 36.4
--- NOTE | 2023-10-07 04:09 | PCM.PN.OB ---
Subjective Subjective Patient doing well without complaints. Tolerating PO. Ambulating and voiding without difficulty. Feeding well. Denies chest pain, shortness of breath, calf pain/swelling, fevers, chills, lightheadedness. Objective Data Objective Data Vital Signs: Vital Signs Temp Pulse Resp BP Pulse Ox O2 Del Method 97.5 F L 66 16 137/82 H 95 Room Air 10/07/23 03:57 10/07/23 03:57 10/07/23 03:57 10/07/23 03:57 10/06/23 23:48 10/07/23 03:57 Oxygen Delivery Method Room Air Weight: 179 lb 14.355 oz Body Mass Index (BMI) 25.0 Intake & Output: Intake and Output for Last 24 Hours 10/05/23 10/06/23 10/07/23 23:59 23:59 23:59 Intake Total 544.16 / 544.16 3026.66 / 3026.66 Output Total 1350 / 1350 Balance 544.16 / 544.16 1676.66 / 1676.66 Lab / Micro Data Attestation: I reviewed the patient's lab results. 10/05/23 16:40 10/05/23 16:40 ROS Constitutional Constitutional: Reports systems reviewed and no addt'l complaints, except as documented; Denies anorexia or headache(s) Cardiovascular Cardiovascular: Reports systems reviewed and no addt'l complaints, except as documented; Denies dizziness, dyspnea, nausea or tachypnea Respiratory/Chest Respiratory/Chest: Reports systems reviewed and no addt'l complaints, except as documented; Denies cough, dyspnea, shortness of breath at rest or tachypnea Gastrointestinal Gastrointestinal: Reports systems reviewed and no addt'l complaints, except as documented; Denies abdominal pain, constipation or nausea Genitourinary Genitourinary: Reports systems reviewed and no addt'l complaints, except as documented; Denies burning urination, difficulty urinating, dysuria, urinary frequency or urinary incontinence Musculoskeletal Musculoskeletal: Reports systems reviewed and no addt'l complaints, except as documented Integumentary Integumentary: Reports systems reviewed and no addt'l complaints, except as documented Neurologic Neurologic: Reports systems reviewed and no addt'l complaints, except as documented; Denies abnormal speech, dizziness or headache(s) Psychiatric Psychiatric: Reports systems reviewed and no addt'l complaints, except as documented Endocrine Endocrinology: Reports systems reviewed and no addt'l complaints, except as documented Hematologic/Lymphatic Hematologic/Lymphatic: Reports systems reviewed and no addt'l complaints, except as documented Physical Exam Const alert, oriented x3 and no apparent distress Neck full ROM Resp normal respiratory effort, normal air movement and no retractions Effort and Inspection: able to speak in complete sentences and symmetric chest movement GI soft to palpation Bladder / Kidney Exam: bladder normal to palpation Uterus Palpation: uterus fundus firm Extremity normal to inspection and full ROM Psych mental status grossly normal, thought process normal and cooperative Assessment & Plan (1) Vaginal delivery: COMMENT: IOL 39 GHTN boy KW PLAN: s/p PPD # 1 1. routine post delivery care 2. breast feeding- support given 3. rh positive 4. rubella immune Discharge home (2) Elevated BP without diagnosis of hypertension: COMMENT: PEC labs negative with normal BPs in L&D Charges/Coding Multi Select Codes Urinary/Genital Urinary/Genital CPT Codes: No Charge
[2023-10-07 09:20] VITALS: BP 133/91; PULSE 68; RESP 16; TEMP 36.1; O2SAT 97
[2023-10-07] MEDS: Acetaminophen 500 MG Tablet 1000 MG PO (09:49)
[2023-10-07] MEDS: Senna/Docusate Sodium 1 Tablet PO (09:50)
[2023-10-07 16:00] VITALS: BP 135/90; PULSE 54; RESP 14; TEMP 36.6; O2SAT 96
== END 2023-10-07 20:00 | disposition home or self-care (01) | DRG 807 ==
PROVIDERS: Admitting Provider Obstetrics & Gynecology; Visit Provider Obstetrics & Gynecology
DX: O13.4 Gestational [pregnancy-induced] hypertension without significant proteinuria, complicating childbirth (principal); Z37.0 Single live birth; O70.0 First degree perineal laceration during delivery; O99.892 Other specified diseases and conditions complicating childbirth; O99.824 Streptococcus B carrier state complicating childbirth; Z87.59 Personal history of other complications of pregnancy, childbirth and the puerperium; Z3A.39 39 weeks gestation of pregnancy
CPT/HCPCS: 59025; 59050; 82565; 82570; 84156; 84450; 84460; 84550; 85025; 86780; 86850; 86900; 86901; 99221; G0378

== ENCOUNTER → 2024-01-18 | Outpatient (CLI) | payer OTHER, SELFPAY ==
[2024-01-18 11:46] LABS: Hematocrit 38.3 % (37-47); Hemoglobin 12.9 g/dL (12.0-15.0); Mean Corp Hgb Conc 33.7 g/dL (32-36); Mean Corpuscular Hgb 30.5 pg (27.0-32.0); Mean Corpuscular Volume 90.5 fL (81-99); Mean Platelet Vol. 9.7 fl (6.2-12.0); Platelet Count 177 K/mm3 (150-450); RBC Distribution Width CV 12.1 % (11.6-14.6); RBC Distribution Width SD 39.8 fl (35.1-43.9); Red Blood Count 4.23 M/mm3 (4.2-5.4); White Blood Count 5.1 K/mm3 (4.4-11.0)
[2024-01-18 11:54] LABS: Albumin, Serum 3.7 g/dL (3.2-5.0); BUN 17 mg/dL (7-18); BUN/Creat Ratio 22.2 RATIO (10-20); Calcium,Total 8.7 mg/dL (8.5-10.1); Chloride 108 mmol/L (98-107); Creatinine, Serum 0.77 mg/dL (0.55-1.02); EST Glomerular Filtration Rate 98 mL/min (>60); Est Glom Filt Rate - Afr Amer 118 mL/min (>60); Glucose 93 mg/dL (74-106); Phosphorus 3.4 mg/dL (2.5-4.9); Sodium Level 138 mmol/L (136-145)
[2024-01-18 12:00] LABS: Microalbumin,Random Urine 62.8 mg/L (NO RANGE EST.); Microalbumin:Creatinine Ratio 81.3 mg/g CRE (<30 mg/g CRE)
== END | disposition home or self-care (01) ==
LOC: LAB 10:55
PROVIDERS: Referring Provider Internal Medicine Nephrology; Visit Provider Internal Medicine Nephrology
DX: N18.1 Chronic kidney disease, stage 1 (principal)
CPT/HCPCS: 36415; 80069; 82043; 82570; 85027

== ENCOUNTER → 2024-03-11 | Outpatient (CLI) | payer OTHER, SELFPAY ==
--- NOTE | 2024-03-11 08:44 | US_ITS ---
EXAM: US RETROPERITONEAL LIMITED, RENAL CLINICAL INDICATION: POLCYSTIC TECHNIQUE: Limited grayscale and color Doppler sonographic evaluation of the retroperitoneum was performed. COMPARISON: Renal ultrasound, 10/01/[address] abdomen and pelvis, 11/02/2021. FINDINGS: RIGHT KIDNEY: There are innumerable right renal cysts correlating with the prior examination and consistent with the given history. No hydronephrosis. No shadowing calculus. No perinephric collection is demonstrated. LEFT KIDNEY: There are innumerable left renal cysts correlating with the prior examination and consistent with the given history. No hydronephrosis. No shadowing calculus. No perinephric collection is demonstrated. BLADDER: The ureteral jets are visualized. Urinary bladder appears otherwise normal. US/Kidney and Bladder IMPRESSION: Bilateral renal cysts similar to the prior examination. Findings are consistent with polycystic kidney disease. Electronically Signed: Dhaval Humphries DO at 20:22 EDT ,
[2024-03-15 13:36] LABS: HPV Reflexed? NOT INDICATED
== END | disposition home or self-care (01) ==
PROVIDERS: Nurse Practitioner Women's Health
DX: Z12.4 Encounter for screening for malignant neoplasm of cervix (principal); Q61.2 Polycystic kidney, adult type
CPT/HCPCS: 76770; 88175; G0145

== ENCOUNTER → 2024-04-16 | Outpatient (CLI) | payer OTHER, SELFPAY ==
--- NOTE | 2024-04-16 12:38 | US_ITS ---
STUDY: ULTRASOUND OF THE FEMALE PELVIS - LIMITED REASON FOR EXAM: Female, 23 years old IUD placement TECHNIQUE: Transabdominal and Transvaginal TECHNICAL QUALITY: Adequate. COMPARISON: None. FINDINGS: The uterus is anteverted and is in a midline position. The uterus measures 6.6 x 4.5 x 3.1 cm. Normal uterine cervix. The endometrium measures 2.5 mm in thickness, and is hyperechoic. There is no demonstrated endometrial mass. There is no demonstrated myometrial mass. IUD is seen within the endometrium. Slightly low-lying. The right ovary measures 3.3 cm x 2.4 cm x 2.3 cm. There is no right ovarian cyst or ovarian mass. There is no visualized right adnexal mass or complex lesion. There is normal arterial and normal venous vascularity. The left ovary measures 3.2 cm x 1.8 cm x 2.1 cm. There is no left ovarian cyst or ovarian mass. There is no visualized left adnexal mass or complex lesion. There is normal arterial and normal venous vascularity. There is no fluid in the cul-de-sac. US/Pelvic w/ Transvaginal IMPRESSION: IUD is seen within the endometrium. Slightly low-lying. Electronically Signed: Leonel Carrington MD at 15:36 EDT ,
--- OUTSIDE RECORDS SUMMARY | 2024-04-16 18:15 | XMS RPT_ITS | CCD ---
Author Organization [facility] [employer] [facility] Care Team Providers Care Director Of Diversity And Inclusion Name Role Phone DENITA DE LEON Primary Care Unavailable NURY BYRNES Referring UnavailMODESTA Gallardo Attending Unavailable DEMETRICE ISAACS Admitting Unavailable DEMETRICE ISAACS Consulting Unavailable DEMETRICE ISAACS Attending Unavailable LIYA MACHINIST TOOL AND DIE~[phone], LIYA MILLERL Prima ry Care Unavailable DEMETRICE ISAACS Consulting Unavailable LIYA MACHINIST TOOL AND DIE, RACHAIL Consulting Unavailab le LIYA MACHINIST TOOL AND DIE, RACHAIL Consulting Unavailab le DEMETRICE ISAACS Consulting Unavailable DEMETRICE ISAACS Attending Unavailable LIYA MACHINIST TOOL AND DIE~[phone], LIYA RACLAINEL Prima ry Care Unavailable DEMETRICE ISAACS Admitting Unavailable DEMETRICE ISAACS Consulting Unavailable NURY BYRNES Consulting Unavailable NURY BYRNES Consulting Unavailable LIYA MACHINIST TOOL AND DIE, RACHAIL Consulting Unavailab le LIYA MACHINIST TOOL AND DIE, RACHAIL Consulting Unavailab le Problems Problem Classification Problem Date Documented Da te Episodic/Chronic Genitourinary congenital anomalies (3 sources) Polycystic kidney, adult type; Translations: [POLYCYSTIC KIDNEY ADULT TYPE] Onset: 02-01-2023 Chronic Menstrual disorders (3 sources) Amenorrhea, unspecified; Translations: [AMENORRHEA UNSPECIFIED] Onset: 02-07-2023 Chronic Results Test Name Value Interpretation Reference Range Facility HCG BLOODon 02-07-2023 HCG.beta subunit Qn 3111 m[IU]/mL High 1-3 [facility] Comment on above: Performed By: #### 2 1198-7 #### [facility] [address] [place], [place] [address] Video Intern - Yumiko DELGADO [id number] HCG.beta subunit Qnon [address] [facility] HCG INTERPRETATION T he expected values were calculated non-parametrically and represent the central 95% of the population. When borderline results are encountered, patient samples should be drawn 48 hours later. The concentration of HCG rises rapidly during early . Gestational Age Expected HCG Values 0.2-1 week 5-50 1-2 weeks 50-500 2-3 weeks 100-5000 3-4 weeks 500-10,000 4-5 weeks 1000-50,000 5-6 weeks 10,000-100,000 6-8 weeks 15,000-200,000 2-3 months 10,000-100,000 Normal [facility] Comment on above: Performed By: #### 2 1198-7 #### [facility] [address] [place] [address] Video Intern - Yumiko DELGADO [id number] 25-hydroxyvitamin D [Mass/Vo l]on 02-01-2023 25-hydroxyvitamin D3 [Mass/Vol] 36.9 ng/mL Normal 30.0-100.0 [facility] Comment on above: Performed By: #### 6 2292-8 #### [place] [address] [place] [address] Video Intern - Yumiko DELGADO [id number] HVITD VITAMIN D INTERPRETA TION VITAMIN D STATUS RANGE DEFICIENCY <20 ng/mL INSUFFICIENCY 20-30 ng/mL SUFFICIENCY 30-100 ng/mL TOXICITY >100 ng/mL Normal [facility] Comment on above: Performed By: #### 6 2292-8 #### [address] [place] [address] Video Intern - Yumiko DEGLADO [id number] CBC W Auto Differential pane l (Bld)on 02-01-2023 Basophils (Bld) [#/Vol] 0.05 10*3/uL Normal <=0.70 [facility] Comment on above: Performed By: #### 5 7021-8 #### [place] [address] [place] [address] Video Intern - Yumiko Leong CLIA [id number] Basophils/100 WBC (Bld) 0.7 % Normal <=2.0 [facility] Comment on above: Performed By: #### 5 7021-8 #### [place] [address] [place] [address] Video Intern - Yumiko Leong CLIA [id number] Eosinophils (Bld) [#/Vol] 0.06 10*3/uL Normal <=0.70 [facility] Comment on above: Performed By: #### 5 7021-8 #### [address] [place] [address] Video Intern - Yumiko Leong CLIA [id number] Eosinophils/100 WBC (Bld) 0.9 % Normal <=10.0 [facility] Comment on above: Performed By: #### 5 7021-8 #### [address] Director - Yumiko Leong CLIA [id number] Erythrocyte distribution width (RBC) [Entitic vol] 38.9 fL Normal 36.4-46.3 [facility] Comment on above: Performed By: #### 5 7021-8 #### [address] [place] [address] Video Intern - Yumiko Leong CLIA [id number] Hematocrit (Bld) [Volume fraction] 39.2 % Normal 37.0-47.0 [facility] Comment on above: Performed By: #### 5 7021-8 #### [address] Director - Yumiko Leong CLIA [id number] Hemoglobin (Bld) [Mass/Vol] 13.7 g/dL Normal 12.0-16.0 [facility] Comment on above: Performed By: #### 5 7021-8 #### [place] [address] [place] [address] Video Intern - Yumiko REINAIA [id number] Immature granulocytes (Bld) [#/Vol] 0.01 10*3/uL Normal <=0.10 [facility] Comment on above: Performed By: #### 5 7021-8 #### [facility] [address] [place] [address] Video Intern - Yumiko Leong CLIA [id number] Immature granulocytes/100 WBC (Bld) 0.10 % Normal <=1.50 [facility] Comment on above: Performed By: #### 5 7021-8 #### [place] [address] [place] [address] Video Intern - Yumiko REINAIA [id number] Lymphocytes (Bld) [#/Vol] 2.64 10*3/uL Normal 1.20-3.40 [facility] Comment on above: Performed By: #### 5 7021-8 #### [place] [address] [place] [address] Video Intern - Yumiko REINAIA [id number] Lymphocytes/100 WBC (Bld) 37.9 % Normal 20.0-40.0 [facility] Comment on above: Performed By: #### 5 7021-8 #### [place] [address] [place] [address] Video Intern - Yumiko REINAIA [id number] MCH (RBC) [Entitic mass] 30.4 pg Normal 27.0-31.0 [facility] Comment on above: Performed By: #### 5 7021-8 #### [facility] [address] [place] [address] Video Intern - Yumiko REINAIA [id number] MCHC (RBC) [Mass/Vol] 34.9 g/dL Normal 32.0-36.0 [facility] Comment on above: Performed By: #### 5 7021-8 #### [place] [address] [place] [address] Video Intern - Yumiko REINAIA [id number] MCV (RBC) [Entitic vol] 87.1 fL Normal 80.0-100.0 [facility] Comment on above: Performed By: #### 5 7021-8 #### [place] [address] Video Intern - Yumiko REINAIA [id number] Monocytes (Bld) [#/Vol] 0.57 10*3/uL Normal 0.10-0.60 [facility] Comment on above: Performed By: #### 5 7021-8 #### [place] [address] Video Intern - Yumiko REINAIA [id number] Monocytes/100 WBC (Bld) 8.2 % High <=8.0 [facility] Comment on above: Performed By: #### 5 7021-8 #### [place] [address] Video Intern - Yumiko REINAIA [id number] Neutrophils (Bld) [#/Vol] 3.64 10*3/uL Normal 1.40-6.50 [facility] Comment on above: Performed By: #### 5 7021-8 #### [place] [address] Video Intern - Yumiko REINAIA [id number] Neutrophils/100 WBC (Bld) 52.2 % Normal 50.0-70.0 [facility] Comment on above: Performed By: #### 5 7021-8 #### [place] [address] Video Intern - Yumiko REINAIA [id number] Nucleated RBC (Bld) [#/Vol] 0.00 10*3/uL Normal <=0.10 [facility] Comment on above: Performed By: #### 5 7021-8 #### [place] [address] Video Intern - Yumiko REINAIA [id number] Platelet mean volume (Bld) [Entitic vol] 9.4 fL Normal 9.0-13.0 [facility] Comment on above: Performed By: #### 5 7021-8 #### [facility] [address] [place] [address] Video Intern - Yumiko DELGADO [id number] Platelets (Bld) [#/Vol] 178 10*3/uL Normal 130-400 [facility] Comment on above: Performed By: #### 5 7021-8 #### [facility] [address] [place] [address] Video Intern - Yumiko DELGADO [id number] RBC (Bld) [#/Vol] 4.50 10*6/uL Normal 4.00-6.30 [facility] Comment on above: Performed By: #### 5 7021-8 #### [place] [address] [place] [address] Video Intern - Yumiko DELGADO [id number] WBC (Bld) [#/Vol] 6.97 10*3/uL Normal 4.80-10.80 [facility] Comment on above: Performed By: #### 5 7021-8 #### [facility] [address] [place] [address] Video Intern - Yumiko DELGADO [id number] HEPATIC FUNCTION PANELon Albumin [Mass/Vol] 3.8 g/dL Normal 3.4-5.0 [facility] Comment on above: Performed By: #### 2 4325-3, 26379-9 #### [facility] [address] [place] [address] Video Intern - Yumiko DELGADO [id number] Hepatic function 2000 panelo n 02-01-2023 Albumin/Globulin [Mass ratio] 1.1 {ratio} Normal 1.0-2.2 [facility] Comment on above: Performed By: #### 2 4325-3, 41551-1 #### [facility] [address] [place] [address] Video Intern - Yumiko DELGADO [id number] ALP [Catalytic activity/Vol] 51 U/L Normal 50-136 [facility] Comment on above: Performed By: #### 2 4325-3, 39708-1 #### [facility] [address] [place] [address] Video Intern - Yumiko Leong CLIA [id number] ALT [Catalytic activity/Vol] 26 U/L Normal 14-59 [facility] Comment on above: Performed By: #### 2 4325-3, 76136-8 #### [facility] [address] [place] [address] Video Intern - Yumiko Leong CLIA [id number] AST [Catalytic activity/Vol] 20 U/L Normal 15-37 [facility] Comment on above: Performed By: #### 2 4325-3, 83212-9 #### [facility] [address] [place] [address] Video Intern - Yumiko Leong CLIA [id number] Bilirubin [Mass/Vol] 0.7 mg/dL Normal 0.2-1.0 [facility] Comment on above: Performed By: #### 2 4325-3, 73053-0 #### [facility] [address] [place] [address] Video Intern - Yumiko Leong CLIA [id number] Bilirubin.conjugat ed [Mass/Vol] 0.2 mg/dL Normal <=0.2 [facility] Comment on above: Performed By: #### 2 4325-3, 33653-4 #### [facility] [address] [place] [address] Video Intern - Yumiko Leong CLIA [id number] Globulin (S) [Mass/Vol] 3.4 g/dL Normal 2.4-3.8 [facility] Comment on above: Performed By: #### 2 4325-3, 12899-3 #### [facility] [address] [place] [address] Video Intern - Yumiko Leong CLIA [id number] Protein [Mass/Vol] 7.2 g/dL Normal 6.4-8.2 [facility] Comment on above: Performed By: #### 2 4325-3, 79354-8 #### [facility] [address] [place] [address] Video Intern - Yumiko DELGADO [id number] PTH INTACTon 02-01-2023 Calcium [Mass/Vol] 9.1 mg/dL Normal 8.5-10.1 [facility] Comment on above: Performed By: #### 2 731-8 #### [facility] [address] [place] [address] Video Intern - Yumiko DELGADO [id number] Performed By: #### 2 4325-3, 16583-8 #### [facility] [address] [place] [address] Video Intern - Yumiko DELGADO [id number] Parathyrin.intact [Mass/Vol] 28.8 pg/mL Normal 18.4-80.1 [facility] Comment on above: Performed By: #### 2 731-8 #### [facility] [address] [place] [address] Video Intern - Yumiko DELGADO [id number] Parathyrin.intact [Mass/Vol] on 02-01-2023 [facility] INTACT PTH INTERPRETATION Interpretation Intact PTH Calcium (pg/mL) (mg/dL) Normal 10.0 - 65.0 8.4 - 10.2 Primary Hyperparathyroidism >65.0 >10.2 Secondary Hyperparathyroidism >65.0 <10.2 Non-Parathyroid Hypercalcemia <65.0 >10.2 Hypoparathyroidism <10.2 <8.4 Non-Parathyroid Hypocalcemia 10.0 - 65.0 <8.4 Careful interpretation of the PTH result may be necessary to evaluate the falsely depressed PTH values in patients taking high doses of biotin. Normal [facility] Comment on above: Performed By: #### 2 731-8 #### [facility] [address] [place] [address] Video Intern - Yumiko DELGADO [id number] Renal function 2000 panelon 02-01-2023 Anion gap [Moles/Vol] 4.5 mmol/L Normal <=15.0 [facility] Comment on above: Performed By: #### 2 4325-3, 61061-1 #### [facility] [address] [place] [address] Video Intern - Yumiko DELGADO [id number] BUN/CREATININE 25.1 Normal [facility] Comment on above: Performed By: #### 2 4325-3, 04374-9 #### [facility] [address] [place] [address] Video Intern - Yumiko REINAIA [id number] Chloride [Moles/Vol] 106 mmol/L Normal 98-107 [facility] Comment on above: Performed By: #### 2 4325-3, 54937-4 #### [facility] [address] [place] [address] Video Intern - Yumiko REINAIA [id number] CO2 [Moles/Vol] 25 mmol/L Normal 21-32 [facility] Comment on above: Performed By: #### 2 4325-3, 95929-0 #### [facility] [address] [place] [address] Video Intern - Yumiko REINAIA [id number] Creatinine [Mass/Vol] 0.67 mg/dL Normal 0.51-0.95 [facility] Comment on above: Performed By: #### 2 4325-3, 27929-8 #### [facility] [address] [place] [address] Video Intern - Yumiko REINAIA [id number] GFR/1.73 sq M.predicted MDRD (S/P/Bld) [Vol rate/Area] mL/min/{1.73_m2} Normal >=59 [facility] Comment on above: Performed By: #### 2 4325-3, 23911-3 #### [facility] [address] [place] [address] Video Intern - Yumiko REINAIA [id number] Glucose [Mass/Vol] 100 mg/dL Normal 74-106 [facility] Comment on above: Performed By: #### 2 4325-3, 83514-3 #### [facility] [address] [place] [address] Video Intern - Yumiko DELGADO [id number] HGFR GLOMERULAR FILTRATIO N RATE INTERPRETATION~The eGFR is calculated using the MDRD equation.~This equation has been validated in patients with chronic kidney disease;~however, it underestimates the GFR in healthy patients with GFR's over 60 mL/min.~The equation is not valid in children under the age of 18.~NOTE: Criteria for Chronic Kidney Disease:~ ~1. Kidney damage for at least three months, as defined~by structural or functional abnormalities of the kidney,~with or without decreased glomerular filtration rate, manifested by either:~* Pathological abnormalities or~* Markers of Kidney damage, including abnormalities in~the composition of the blood or urine or abnormalities in imaging tests.~ ~2. GFR <60 mL/min/1.73 m squared for at least three months, with or without kidney damage.~ Normal [facility] Comment on above: Performed By: #### 2 4325-3, 67212-3 #### [facility] [address] [facility] [place] [address] Video Intern - Yumiko DELGADO [id number] Phosphate [Mass/Vol] 3.7 mg/dL Normal 2.5-4.9 [facility] Comment on above: Performed By: #### 2 4325-3, 28329-5 #### [facility] [address] [facility] [place] [address] Video Intern - Yumiko DELGADO [id number] Potassium [Moles/Vol] 3.8 mmol/L Normal 3.5-5.1 [facility] Comment on above: Performed By: #### 2 4325-3, 07590-0 #### [facility] [address] [place] [address] Video Intern - Yumiko DELGADO [id number] Sodium [Moles/Vol] 135 mmol/L Low 136-145 [facility] Comment on above: Performed By: #### 2 4325-3, 40801-6 #### [facility] [address] [place] [address] Video Intern - Yumiko DELGADO [id number] Urea nitrogen [Mass/Vol] 17 mg/dL Normal 7-17 [facility] Comment on above: Performed By: #### 2 4325-3, 33014-4 #### [facility] [address] [place] [address] Video Intern - Yumiko DELGADO [id number] URINE PROTEIN to CREAT RATIO RANDOMon 02-01-2023 Creatinine (U) [Mass/Vol] 19.20 mg/dL Normal [facility] Comment on above: Performed By: #### U PRCR #### [place] [address] [place] [address] Video Intern - Yumiko DELGADO [id number] Performed for [place] [address] [place] [address] Protein Ql (U) <5 Normal <=12 [facility] Comment on above: Performed By: #### U PRCR #### [place] [address] [place] [address] Video Intern - Yumiko DELGADO [id number] Performed for [place] [address] [place] [address] URINE IN/CR RATIO Normal N/A-0.2 [facility] Comment on above: Performed By: #### U PRCR #### [place] [address] [place] [address] Video Intern - Yumiko DELGADO [id number] Performed for [facility] [address] [place] [address] CNOVon 06-19-2021 CNOV Office Visit (UCWSTR ) -------- RUTH COREA ([id number]) 89 F Date Time Provider Department 06/19/21 1:45 PM WHIT HARDIN [facility] During your visit today, we recorded the following information about you: Temperature Pulse Respiration Blood pressure 98.8 degrees 88/minute 16/minute 128/84 Weight 67.3 kg Whit Hardin MD 06/19/2021 3:52 PM Signed Patient presents with: Sinus Problem: sinus pressure [...] and exercise. Follow up with PCP or [facility] [employer]. Seek evaluation for worsening headache, worsening dizziness, worsening nausea, vision change, numbness, weakness, or speech difficulty. Whit Hardin MD Referring Provider: SELF [200] Allergies As of Date: 06/19/2021 (No Known Allergies) Date Reviewed: 06/19/2021 Reviewed by: Maryam Leonardo MA - Fully Assessed Reason for Visit: Sinus Problem [99] Cmt: sinus pressure and pain, LOVE, congestion x2 weeks Primary Visit Diagnosis:Headache, unspecified headache type [R51.9] Prescriptions as of 06/19/2021 - PNV no.95/ferrous fum/folic ac ( ORAL) Take 1 tablet by mouth. Problem List As Of Date 06/19/2021 Noted Resolved Other infectious mononucleosis without complica*12/31/2016 Polycystic kidney disease [Q61.3] 03/25/2016 Chronic seasonal allergic rhinitis [J30.2] 03/27/2017 Encounter Status:Closed by WHIT HARDIN on 06/19/21 Normal [facility] Encounters Encounter Date Encounter Type Care Provider Facility Start: 05-18-2023 End: 05-18-2023 ambulatory DENITA [facility] Start: 02-07-2023 End: 02-08-2023 ambulatory DEMETRICE Escudero WEARE Facility:[facility] Start: 02-01-2023 End: 02-02-2023 ambulatory [facility] Facility:[facility] Payers Date Payer Category Payer Unknown [id number] 1999 Unknown [id number] 1999 Unknown [id number] 1959 Unknown [id number] Progress note 06-19-2021 Note Date & Type Note Facility 06-19-2021 Note HNO ID: [id number] Author: Whit Hardin MD Service: ? Author Type: Physician [...] and exercise. Follow up with PCP or [facility] [employer] T[employer] CHECKER. Seek evaluation for worsening headache, worsening dizziness, worsening nausea, vision change, numbness, weakness, or speech difficulty. Whit Hardin MD [facility] Summary Purpose Family History No Family History Records FoundNo Family History Records FoundNo Family History Records Found Advance Directives No Advanced Directives Records FoundNo Advanced Directives Records FoundNo Advanced Directives Records Found Additional Source Comments INFORMATION SOURCE (unrecogn ized section and content) DATE CREATED AUTHOR 09/08/2021 [facility] DATE CREATED AUTHOR AUTHOR'S ORGANIZ ATION 05/20/2023 [facility] DATE CREATED AUTHOR AUTHOR'S ORGANIZ ATION 10/10/2023 [facility] FOR RECORDS PERTAINING TO PATIENTS WHO ARE [...] BE BASED ON THE PRIMARY CLINICAL RECORDS. [email or web address] [facility]. provides no warranty or guarantee of the accuracy or completeness of information in this document.
== END | disposition home or self-care (01) ==
LOC: US 12:38
PROVIDERS: Referring Provider Nurse Practitioner Women's Health; Visit Provider Nurse Practitioner Women's Health
DX: Z97.5 Presence of (intrauterine) contraceptive device (principal); N92.1 Excessive and frequent menstruation with irregular cycle
CPT/HCPCS: 76830; 76856

== ENCOUNTER 2024-05-08 12:55 | Emergency (ER) | payer OTHER, SELFPAY ==
[2024-05-08 12:56] VITALS: BP 126/76; PULSE 119; RESP 18; TEMP 37.4; O2SAT 99; BMI 20.1
[2024-05-08] MEDS: Acetaminophen 500 MG Tablet 1000 MG PO (13:32)
--- NOTE | 2024-05-08 13:32 | EDS_ITS ---
HPI History of Present Illness Chief Complaint: General Illness Informant: patient Narrative Narrative: 23-year-old female presenting to the emergency room with a chief complaint of fever. Patient states that her this morning she developed headache fever and low backache. She states about 2 weeks ago she had an IUD placed. She has not been experiencing any vaginal discharge or pelvic pain. No rashes cough runny nose sore throat diarrhea dyspnea. Patient notes that she has had problems with the IUD placement in the past. Not infection. PFSH PFS Medical History Encounter for induction of labor Elevated BP without diagnosis of hypertension Positive GBS test UTI in Depression Supervision of high-risk Cholestasis during Vaginal delivery Preeclampsia, severe Pre-eclampsia Polycystic kidney disease Home Medications ?Medication ?Instructions ?Recorded ?Last Taken ?Type multivitamin no.47-iron fum 27 1 cap PO DAILY 02/23/23 10/04/23 History mg-folate no.1 1 mg-dha 300 mg capsule (PNV-DHA) levonorgestrel (Mirena) 1 device intrauterine ONCE 01/30/24 Unknown History Allergy/AdvReac Type Severity Reaction Status Date / Time No Known Allergies Allergy Verified 05/08/24 12:58 Family History Grandmother Diabetes maternal Heart disease maternal Grandfather Diabetes maternal Heart disease maternal Other Hypertension Polycystic kidney disease Surgical History Crapo teeth extracted H/O left wrist surgery Social History adopted: No household members: spouse and children number of children: 2 current occupational status: employed current occupation: [employer] 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) pets and animals: cat(s) history of recent travel: No sexually active: Yes Smoking Status: Never smoker second hand exposure: No alcohol intake: never substance use type: does not use well-balanced diet: daily or most days caffeine: No eating out: 1-3 times/week during the past year weight has: remained stable what type of physical activity do you participate in: walking frequency: 3-4 times per week duration: 15-30 minutes/day macho/scientology: None seatbelt use: always do you feel safe at home: Yes additional social history: - [employer] ROS ROS ED Constitutional Constitutional ED: Reports fever(s); Denies chills or weight loss Eyes Eyes: Denies change in vision or diplopia ENT ENT ED: Denies ear pain, rhinorrhea or sore throat Cardiovascular Cardiovascular: Denies chest pain, orthopnea, palpitations or racing heartbeat Respiratory/Chest Respiratory/Chest: Denies cough, dyspnea or orthopnea Gastrointestinal Gastrointestinal: Denies abdominal pain, diarrhea, nausea or vomiting Genitourinary Genitourinary ED: Denies dysuria, hematuria or urinary frequency Musculoskeletal Musculoskeletal: Reports back pain; Denies arthralgias, myalgias or neck pain Integumentary Denies abscess or rash Neurologic Neurologic: Reports headache(s); Denies weakness Psychiatric Psychiatric: Denies anxiety, depression, suicidal ideation or suicidal thoughts Endocrine Endocrinology: Denies polydipsia, polyphagia or polyuria Allergic/Immunologic Allergic/Immunologic ED: Denies mouth swelling, tongue swelling or urticaria EXAM Physical Exam Narrative Exam Narrative: Well-appearing female sitting comfortably in the bed. Patient moves easily. Const Vital Signs: 05/08/24 12:56 05/08/24 14:55 Temperature 99.3 F H Temperature Source Oral Pulse Rate 119 H 101 H Respiratory Rate 18 16 Blood Pressure 126/76 H 122/61 H Blood Pressure Mean 92 81 Pulse Ox 99 98 Oxygen Delivery Method Room Air Room Air Positive well nourished and well developed General Appearance ED: well developed and NAD HEENT Reports normocephalic, head/scalp atraumatic and moist mucous membranes Eyes PERRL and EOMs intact bilaterally Neck no lymphadenopathy, supple and no JVD Resp normal respiratory effort and clear to auscultation bilaterally Cardio regular rate, regular rhythm and no murmurs GI normal to inspection, nondistended, normoactive bowel sounds and non-tender GI Narrative: Patient allows deep palpation of the abdomen. Palpation: soft Narrative: Pelvic exam was performed in the presence of female RN (Smitha). No vaginal discharge was noted. No cervical motion, adnexal, or uterine tenderness noted. No vaginal discharge is seen. No lesions are noted. IUD string in place. Back/Spine no CVA tenderness and normal ROM Extremity normal to inspection General Extremety ED: Negative for edema General Extremity: Negative for edema Neuro oriented x3 and CN's II-XII intact bilaterally Sensorium / Orientation: alert Motor Exam: strength 5/5 throughout Psych mental status grossly normal Mood & Affect: Negative for depressed or tearful Skin no rashes or lesions noted and no wounds MDM MDM MDM Narrative Medical decision making narrative: Differential diagnosis includes but not limited to viral syndrome UTI pelvic infection Patient's white count 5.4 with 79.4 neutrophils. Urinalysis is normal. COVID influenza and RSV swabs were negative. Pelvic exam was unremarkable. Pelvic ultrasound was obtained. At this point care of the patient will be turned over the oncoming physician (Dr Coyle) for check of ultrasound and final disposition. History & Record Review Discussion w/independent historian: Patient and Significant other Lab Data Attestation: I reviewed the patient's lab results. Labs: Laboratory Results - last 24 hr 05/08/24 05/08/24 13:37 13:39 WBC 5.4 RBC 4.61 Hgb 14.2 Hct 41.7 MCV 90.5 MCH 30.8 MCHC 34.1 RDW Std Deviation 38.3 RDW Coeff of Jerry 11.7 Plt Count 148 L MPV 9.3 Immature Gran % (Auto) 0.200 Neut % (Auto) 79.4 H Lymph % (Auto) 10.9 L [place] % (Auto) 9.1 Eos % (Auto) 0.0 Baso % (Auto) 0.4 Absolute Neuts (auto) 4.3 Absolute Lymphs (auto) 0.59 L Nucleated RBC % 0 Urine Color Yellow Urine Clarity Clear Urine pH 7.0 Ur Specific [place] 1.010 Urine Protein 15 H Urine Glucose (UA) Normal Urine Ketones Negative Urine Occult Blood 50 H Urine Nitrite Negative Urine Bilirubin Negative Urine Urobilinogen Normal Ur Leukocyte Esterase Negative Urine RBC 0-5 SEEN Urine WBC 0-5 SEEN Ur Squamous Epith Cells 0-5 SEEN Ur Transition Epith Cell 0-5 SEEN Urine Bacteria 0 SEEN Urine Mucus 0 SEEN Discharge Plan Triage Chief Complaint: General Illness ED Provider: Venkat Patel Dx/Rx/DC Orders Clinical Impression: Fever, IUD (intrauterine device) in place Instructions: ED Fever Control (Adult) Prescriptions: No Action PNV-DHA 27 mg iron-1 mg -300 mg capsule 1 cap PO DAILY Mirena 21 mcg/24 hr (8 yrs) 52 mg intrauterine device 1 device intrauterine ONCE Rx Instructions: as a single dose Primary Care Provider: Care Physician,No Primary Referrals: Care Physician,No Primary [Primary Care Provider] - Activity Restrictions/Additional Instructions: Tylenol or Motrin for fever. Monitor for any new symptoms. Return if worsening or concerns Print Language: [place] Disposition Disposition: Home, Self Care
[2024-05-08 13:48] LABS: Bacteria 0 SEEN /hpf (None Seen); Mucous, Urine 0 SEEN /hpf (<or=2+)
[2024-05-08 13:52] LABS: Absolute Lymphocyte Count 0.59 X10^3/uL (0.83-4.51); Absolute Neutrophil Count 4.3 X10^3/uL (2.0-7.7); Basophil# 0.02 X10^3/uL; Basophil% 0.4 % (0-1); Hematocrit 41.7 % (37-47); Hemoglobin 14.2 g/dL (12.0-15.0); Lymphocyte # 0.59 X10^3/ul (0.83-4.51); Lymphocyte % 10.9 % (19-41); Mean Corp Hgb Conc 34.1 g/dL (32-36); Mean Corpuscular Hgb 30.8 pg (27.0-32.0); Mean Corpuscular Volume 90.5 fL (81-99); Mean Platelet Vol. 9.3 fl (6.2-12.0); Monocyte# 0.49 X10^3/uL; Monocyte% 9.1 % (0-10); NRBC Flagged by Analyzer 0 % (0-5); Neutrophil % 79.4 % (47-70); POSITIVE DIFFERENTIAL YES; Platelet Count 148 K/mm3 (150-450); RBC Distribution Width CV 11.7 % (11.6-14.6); RBC Distribution Width SD 38.3 fl (35.1-43.9); Red Blood Count 4.61 M/mm3 (4.2-5.4); White Blood Count 5.4 K/mm3 (4.4-11.0)
[2024-05-08 14:00] LABS: Color, Urine Yellow (Yellow); Glucose, Dipstick Normal (Normal); Ketone-Dipstick Negative (Negative); Leukocyte Esterase-Dipstick Negative /ul (Negative); Nitrite-Dipstick Negative (Negative); Occult Blood-Urine 50 /ul (Negative); Protein-Dipstick 15 mg/dl (Negative); Urine Bilirubin Dipstick Negative (Negative); Urine Clarity Clear (Clear); Urine Urobilinogen Normal (Normal)
[2024-05-08 14:13] LABS: White Blood Cells 0-5 SEEN /hpf (0-5)
[2024-05-08 14:14] LABS: Red Blood Cells-Urine 0-5 SEEN /hpf (0-5); Squamous Epithelial Cells - UA 0-5 SEEN /hpf (5-10)
[2024-05-08 14:15] LABS: Transitional Epithelial - Ur 0-5 SEEN /hpf (0-5)
[2024-05-08 14:55] VITALS: BP 122/61; PULSE 101; RESP 16; O2SAT 98
--- NOTE | 2024-05-08 15:02 | US_ITS ---
INDICATION: IUD Placement Fever EXAMINATION: Ultrasound US Transvaginal Non-OB TECHNIQUE: Transvaginal (for optimal evaluation of the adnexa) pelvic ultrasound was performed. Grayscale, spectral waveform, and color flow Doppler evaluation of the adnexa. COMPARISON: FINDINGS: UTERUS: Anteverted. The uterus measures 6.9 x 5.0 x 3.3 cm. There is no uterine mass. The endometrial stripe measures 1.8 mm in AP diameter with an IUD noted in place RIGHT OVARY: 3.2 x 2.7 x 2.0 cm. Non-enlarged, normal echogenicity. There is normal arterial inflow and venous outflow present in the right ovary. LEFT OVARY: 4.1 x 2.2 x 2.5 cm. Non-enlarged, normal echogenicity. There is normal arterial inflow and venous outflow present in the left ovary. FREE FLUID: Moderate. US/Transvaginal Non- IMPRESSION: Pelvic free fluid. IUD in place. Electronically Signed: Stan Ahn DO at 16:56 EST ,
[2024-05-08 16:00] VITALS: BP 117/77; PULSE 94; RESP 16; O2SAT 98
[2024-05-08 17:29] VITALS: BP 117/84; PULSE 74; RESP 14; TEMP 36.8; O2SAT 99
== END 2024-05-08 17:30 | disposition home or self-care (01) ==
PROVIDERS: Emergency Provider Emergency Medicine; Referring Provider Emergency Medicine; Visit Provider Emergency Medicine
DX: R50.9 Fever, unspecified (principal); Z97.5 Presence of (intrauterine) contraceptive device
CPT/HCPCS: 76830; 81001; 85025; 87631; 99282; A4216

== ENCOUNTER → 2025-03-20 | Outpatient (CLI) | payer OTHER, SELFPAY ==
[2025-03-20 12:14] LABS: AST(SGOT) 16 U/L (<=31); Alanine Aminotransfer ALT/SGPT 13 U/L (<=34); Albumin, Serum 4.5 g/dL (3.5-5.0); Alkaline Phosphatase 39 U/L (35-104); Anion Gap 10 (5-15); BUN 9 mg/dL (4-19); BUN/Creat Ratio 12.8 RATIO (10-20); Bilirubin, Direct 0.41 mg/dL (0.00-0.30); Calcium,Total 9.1 mg/dL (7.6-11.0); Carbon Dioxide 25.1 mmol/L (21.0-32.0); Chloride 105 mmol/L (98-108); Globulin 2.4 g/dL (2.2-4.2); Glucose 76 mg/dL (70-99); Potassium 3.8 mmol/L (3.3-5.1)
== END | disposition home or self-care (01) ==
PROVIDERS: PCP Nurse Practitioner Adult Health; Referring Provider Internal Medicine Nephrology; Visit Provider Internal Medicine Nephrology
DX: Q61.2 Polycystic kidney, adult type (principal)
CPT/HCPCS: 36415; 80048; 80076; 84100

== ENCOUNTER 2025-05-24 10:40 | Outpatient (RCR) | payer OTHER, SELFPAY ==
[2025-05-24 11:47] LABS: AST(SGOT) 35 U/L (<=31); Alanine Aminotransfer ALT/SGPT 38 U/L (<=34); Albumin, Serum 4.2 g/dL (3.5-5.0); Alkaline Phosphatase 44 U/L (35-104); Bilirubin, Direct 0.28 mg/dL (0.00-0.30); Globulin 2.6 g/dL (2.2-4.2)
== END 2025-05-24 18:00 | disposition home or self-care (01) ==
LOC: LAB 10:40
PROVIDERS: PCP Nurse Practitioner Adult Health; Referring Provider Internal Medicine Nephrology; Visit Provider Internal Medicine Nephrology
DX: Q61.2 Polycystic kidney, adult type (principal)
CPT/HCPCS: 36415; 80076